=== PATIENT | male | born 1930 | race Asian ===

== ENCOUNTER 2018-03-09 01:34 | Inpatient (IN) | payer MEDICARE, OTHER ==
[2018-03-09] VITALS (9 sets, daily range): BP systolic 96–116; BP diastolic 54–76
[~2018-03-09] VITALS: Ht 172.7 cm; Wt 68.7 kg
[2018-03-09] MEDS ORDERED: NS 1000ml 1,600 ML IVLG ONE (01:45)
[2018-03-09] MEDS ORDERED: Acetaminophen 650 MG SUPP RECTAL ONE (01:45)
[2018-03-09 02:01] LABS: APPEARANCE,URINE CLOUDY; BILIRUBIN, URINE NEGATIVE (NEGATIVE); COLOR,URINE PALE YELLOW; GLUCOSE, URINE (UA) 4+ (NEGATIVE); KETONES,URINE NEGATIVE (NEGATIVE); LEUKOCYTE ESTERASE ,URINE 3+ (NEGATIVE); NITRITE,URINE NEGATIVE (NEGATIVE); PH,URINE 5 (4.5-8.0); PROTEIN,URINE 3+ (NEGATIVE); UROBILINOGEN,URINE NORMAL MG/DL (0.0-1.0)
[2018-03-09 02:02] LABS: HEMATOCRIT 37.7 % (42.0-52.0); HEMOGLOBIN 11.6 G/DL (14.2-18.0); MEAN CORPUSCULAR VOLUME 90 FL (80-99); PLATELET COUNT 358 K/UL (150-450); RED BLOOD COUNT 4.18 M/UL (4.70-6.10); RED CELL DISTRIBUTION WIDTH 16.4 % (11.6-14.8)
[2018-03-09] MEDS ORDERED: DOCUSATE S50 MG/5 ML GT (02:09)
[2018-03-09] MEDS ORDERED: HUMALOG100 UNIT/4 SUBQ (02:09)
[2018-03-09] MEDS ORDERED: ASPIRIN81 MG GT (02:09)
[2018-03-09] MEDS ORDERED: ARGINAID POWDE1 EACH GT (02:09)
[2018-03-09] MEDS ORDERED: ACETAMINOPHEN325 M1 GT ×2 (02:09)
[2018-03-09] MEDS ORDERED: HEPARIN SO5000 UNIT2 SUBQ (02:09)
[2018-03-09] MEDS ORDERED: IPRATROPIU0.2 MG/1 M HHN (02:09)
[2018-03-09] MEDS ORDERED: JANUVIA100 MG GT (02:09)
[2018-03-09] MEDS ORDERED: TRAMADOL HCL50 MG GT (02:09)
[2018-03-09] MEDS ORDERED: ASCORBIC ACID500 M4 GT (02:09)
[2018-03-09] MEDS ORDERED: FOLIC ACID1 MG GT (02:09)
[2018-03-09] MEDS ORDERED: METOCLOPRA10 MG/10 M GT (02:09)
[2018-03-09] MEDS ORDERED: Cefepime HCl 2 GM in D5W 55 ML IVPB ONE (02:15)
[2018-03-09] MEDS ORDERED: Albuterol ud Inhalation HHN ONE (02:15)
--- NOTE | 2018-03-09 02:26 | Emergency Room Report ---
History of Present Illness General Chief Complaint: Altered Level of Consciousness Source: Medical Record, EMS Present Illness HPI This is an unfortunate 87-year-old [place] male, care home. He is a DO NOT RESUSCITATE. He presents with chief complaint altered mental status with fever. Onset supposedly tonight. He also has respiratory distress and decreased mentation. No nausea no vomiting. No diarrhea. He has a history of MRSA in the past. Also decubital ulcer and feeding tube. Allergies: Coded Allergies: No Known Allergies (Verified , 05/12/08) Patient History Past Medical History: see triage record, old chart reviewed, DM, COPD Past Surgical History: other Pertinent Family History: none Social History: Denies: smoking Immunizations: other Reviewed Nursing Documentation: PMH: Agreed; PSxH: Agreed Nursing Documentation-PMH Hx Cardiac Problems: Yes - ATHEROSCLEROTIC HEART DISEASE,CAD,PVD,HYPERLIPIDEMIA Hx Hypertension: Yes - ANEMIA,OSTEOMYELITIS Hx COPD: Yes Hx Diabetes: Yes Hx Gastrointestinal Problems: Yes - CKD Review of Systems Constitutional: Reports: fever, malaise, weakness Eye: Denies: eye pain, blurred vision ENT: Denies: ear pain, nose congestion, throat swelling Respiratory: Reports: cough Cardiovascular: Denies: chest pain, palpitations Gastrointestinal: Denies: abdominal pain, diarrhea, nausea, vomiting Musculoskeletal: Denies: back pain, joint pain Skin: Denies: rash Neurological: Denies: headache, numbness Endocrine: Denies: increased thirst, increased urine Hematologic/Lymphatic: Denies: easy bruising All Other Systems: negative except mentioned in HPI Physical Exam Vital Signs Date Time Temp Pulse Resp B/P (MAP) Pulse Ox O2 Delivery O2 Flow Rate FiO2 03/09/18 01:26 102.4 128 41 90/60 98 Room Air 102.4 03/09/18 02:15 2.0 28 vitals with fever and hypotension Sp02 EP Interpretation: abnormal General Appearance: moderate distress, lethargic, Stupor Head: normocephalic, atraumatic Eyes: bilateral eye PERRL, bilateral eye EOMI ENT: dry mucus membranes - very dry Neck: full range of motion, supple, no meningismus Respiratory: chest non-tender, respiratory distress, decreased breath sounds, accessory muscle use, rhonchi, wheezing Cardiovascular #1: regular rate, rhythm, no murmur, tachycardia Gastrointestinal: normal bowel sounds, non tender, no mass, no organomegaly, no bruit, non-distended Musculoskeletal: back normal, other - contracted. Ulcer to heels and sacrum Neurologic: grossly normal Skin: warm/dry Procedures Critical Care Time Critical Care Time Critical care is mandated in this patient who presented with severe sepsis. Patient require my urgent intervention to attenuate the risks of metabolic collapse which may lead to cardiovascular collapse and . Critical care time is 35 minutes excluding any reportable procedure. Critical care time included evaluation, multiple reevaluation, looking at old charts, interpreting laboratory and diagnostic data, discussing case with patient and family and consultants, and charting. Medical Decision Making Diagnostic Impression: Primary Impression: Severe sepsis Additional Impressions: Healthcare associated bacterial pneumonia UTI (urinary tract infection) Qualified Codes: N30.00 - Acute cystitis without hematuria Toxic metabolic encephalopathy Anemia Qualified Codes: D64.9 - Anemia, unspecified Proteinuria Qualified Codes: R80.9 - Proteinuria, unspecified Dehydration Hyperglycemia due to type 2 diabetes mellitus Qualified Codes: E11.65 - Type 2 diabetes mellitus with hyperglycemia; Z79.4 - alf (current) use of insulin ER Course Patient presents with severe sepsis secondary to both pneumonia and UTI. After IV fluid, he is more alert. Heart rate down. White spectrum antibiotics given. Will admit for further workup. I will admit to Dr. Puckett since he is admitting for Dr. Duff. Lab Results Impression labs with high sugar and WBC EKG Diagnostic Results Rate: tachycardiac Rhythm: NSR ST Segments: no acute changes Rhythm Strip Diag. Results Rhythm Strip Time: 02:25 EP Interpretation: yes Rate: 106 Rhythm: NSR, no PVC's, no ectopy Chest X-Ray Diagnostic Results Chest X-Ray Diagnostic Results : Chest X-Ray Ordered: Yes # of Views/Limited/Complete: 1 View Indication: Shortness of Breath EP Interpretation: Yes Interpretation: no effusion, no pneumothorax, other - right lower lobe and left lower lobe infiltrates Impression: Other - lower lobe infiltrates Electronically Signed by: Thor Kevin MD Last Vital Signs Date Time Temp Pulse Resp B/P (MAP) Pulse Ox O2 Delivery O2 Flow Rate FiO2 03/09/18 02:15 107 33 97 Nasal Cannula 2.0 28 03/09/18 01:45 102.4 03/09/18 01:26 90/60 Status: improved Disposition: ADMITTED INPATIENT Condition: Serious Referrals: NON PHYSICIAN (PCP) THOR KEVIN M.D. Mar 09, 2018 02:26
[2018-03-09 02:27] LABS: ALANINE AMINOTRANSFERASE 20 U/L (12-78); ALBUMIN 2.5 G/DL (3.4-5.0); ALBUMIN/GLOBULIN RATIO 0.4 (1.0-2.7); ALKALINE PHOSPHATASE 82 U/L (46-116); ANION GAP 13 mmol/L (5-15); ASPARTATE AMINO TRANSFERASE 12 U/L (15-37); BILIRUBIN,TOTAL 0.5 MG/DL (0.2-1.0); BLOOD UREA NITROGEN 70 mg/dL (7-18); CALCIUM 9.1 MG/DL (8.5-10.1); CARBON DIOXIDE 22 MMOL/L (21-32); CHLORIDE 107 MMOL/L (98-107); CKMB < 0.5 NG/ML (0.0-3.6); CREATINE KINASE 168 U/L (26-308); CREATININE 1.9 MG/DL (0.55-1.30); POTASSIUM 3.8 MMOL/L (3.5-5.1); SODIUM 142 MMOL/L (136-145)
[2018-03-09] MEDS ORDERED: Insulin Human Regular 100units/ml 3ml IV ONE ×2 (02:30→05:15)
--- NOTE | 2018-03-09 03:49 | Diagnostic Imaging Report ---
EXAM: XR Chest, 1 View CLINICAL HISTORY: SOB TECHNIQUE: Frontal view of the chest. COMPARISON: No relevant prior studies available. FINDINGS: Lungs: Tortuous calcified thoracic aorta. Bibasilar opacity which may reflect subsegmental atelectasis. Developing infiltrate difficult to exclude. Low lung volumes accentuate pulmonary lung markings Pleural space: No pneumothorax. Heart: Unremarkable. No cardiomegaly. Mediastinum: Unremarkable. Bones/joints: Unremarkable. Soft tissues: Skin fold in the lateral aspect of the left mid to lower lung. Tubes, lines and devices: Overlying chest leads obscure portion of the chest. IMPRESSION: Bibasilar atelectasis versus developing infiltrate..
[2018-03-09] MEDS ORDERED: traMADol 50mg tab GT PRN (06:45)
[2018-03-09] MEDS ORDERED: Docusate 100mg/10ml Liq GT PRN (06:45)
[2018-03-09] MEDS ORDERED: Ipratropium 0.02% Inh Soln 2.5ml UD HHN PRN (06:45)
[2018-03-09] MEDS ORDERED: Milk of Magnesia 30ml Ud ORAL PRN (06:45)
[2018-03-09] MEDS ORDERED: NS w/KCl 20mEq 1,000 ML IV SCH (08:00)
[2018-03-09] MEDS ORDERED: Vancomycin 1gm/D5W 275ml IVPB ONE ×2 (08:30)
[2018-03-09] MEDS: Aspirin Baby 81mg GT SCH (10:21)
[2018-03-09] MEDS: sitaGLIPtin 25mg tab GT SCH (10:21)
[2018-03-09] MEDS: Ascorbic Acid 500mg tab GT SCH (10:21)
[2018-03-09] MEDS: Docusate 100mg/10ml Liq GT SCH ×2 (10:21→21:04)
[2018-03-09] MEDS: Heparin 5000 units/ml inj SUBQ SCH ×2 (10:26→21:05)
--- NOTE | 2018-03-09 11:34 | Consultation ---
History of Present Illness General Date patient seen: Mar 09, 2018 Chief Complaint: Altered Level of Consciousness Present Illness HPI 87-year-old German male, with Hx of CAD, CVA, Dementia, Bed boudn, Gtube, sacral decubit, prison resident with DO NOT RESUSCITATE order in the [facility] presented to ER with chief complaint altered mental status, respiratory distress with fever. Pt was diagnosed to have sepsis and admitted to med/surg for further w/u. Pt is sitting up in the bed with open eyes, doesn't communicate. Allergies: Coded Allergies: No Known Allergies (Verified , 05/12/08) Medication History Scheduled Arginine/Ascorbate Sod/[place] AC (Arginaid Powder), 1 EACH GT BID, (Reported) Ascorbic Acid* (Ascorbic Acid*), 500 MG GT DAILY, (Reported) Aspirin* (Aspirin*), 81 MG GT DAILY, (Reported) Folic Acid* (Folic Acid*), 1 MG GT DAILY, (Reported) Heparin Sod (Porcine) (Heparin Sodium*), 5,000 UNITS SUBQ EVERY 12 HOURS, ( Reported) Metoclopramide Hcl* (Metoclopramide Hcl*), 4 MG GT EVERY 6 HOURS, (Reported) Sitagliptin (Januvia), 100 MG GT DAILY, (Reported) Scheduled PRN Acetaminophen* (Acetaminophen 325MG Tablet*), 325 MG GT Q4H PRN for For Pain, ( Reported) Acetaminophen* (Acetaminophen 325MG Tablet*), 650 MG GT Q6H PRN for FEVER, ( Reported) Docusate Sodium (Docusate Sodium), 100 MG GT EVERY 12 HOURS PRN for Constipation , (Reported) Ipratropium [place] 0.5MG/2.5ML (Ipratropium [place] 0.5MG/2.5ML), 0.5 MG HHN EVERY 4 HOURS PRN for Shortness of Breath, (Reported) Tramadol Hcl* (Ultram*), 50 MG GT Q6H PRN for For Pain, (Reported) Miscellaneous Medications Insulin Lispro (Humalog), 0 SUBQ, (Reported) Patient History Healthcare decision maker Resuscitation status Do Not Resuscitate Advanced Directive on File Past Medical/Surgical History Past Medical/Surgical History: (1) History of CVA (cerebrovascular accident) (2) Feeding by G-tube (3) Limited mobility in bed (4) Diabetes mellitus Review of Systems All Other Systems: negative except mentioned in HPI Physical Exam General Appearance: cachetic Lines, tubes and drains: peripheral HEENT: normocephalic, atraumatic Neck: non-tender, normal alignment Respiratory/Chest: chest wall non-tender, lungs clear Breasts: no masses Cardiovascular/Chest: normal rate Abdomen: normal bowel sounds, soft, hyperactive bowel sounds Last 24 Hour Vital Signs Date Time Temp Pulse Resp B/P (MAP) Pulse Ox O2 Delivery O2 Flow Rate FiO2 03/09/18 08:00 97.8 77 21 96/58 97 Room Air 97.8 03/09/18 07:48 91 18 Nasal Cannula 2.0 28 03/09/18 07:48 Nasal Cannula 2.0 28 03/09/18 07:48 98 Nasal Cannula 2.0 28 03/09/18 05:15 98.8 112 20 108/67 99 Nasal Cannula 2.0 98.8 03/09/18 05:00 98.8 112 20 108/67 99 Nasal Cannula 2.0 98.8 03/09/18 04:35 98.9 110 22 115/68 98 Nasal Cannula 2.0 98.9 03/09/18 02:30 113 21 116/54 96 Nasal Cannula 2.0 03/09/18 02:30 106 30 100 Nasal Cannula 2.0 28 03/09/18 02:15 98.9 03/09/18 02:15 107 33 97 Nasal Cannula 2.0 28 03/09/18 02:15 107 33 Nasal Cannula 2.0 28 03/09/18 01:45 102.4 03/09/18 01:35 102.4 125 39 101/76 94 Nasal Cannula 2.0 102.4 03/09/18 01:26 102.4 128 41 90/60 98 Room Air 102.4 Intake and Output 03/08/18 03/09/18 19:00 07:00 Intake Total 2800 ml Output Total 400 ml Balance 2400 ml Intake IV Total 2800 ml Output Urine Total 400 ml # Bowel Movements 1 Laboratory Tests Test 03/09/18 01:42 03/09/18 02:40 White Blood Count 20.0 K/UL (4.8-10.8) H Red Blood Count 4.18 M/UL (4.70-6.10) L Hemoglobin 11.6 G/DL (14.2-18.0) L Hematocrit 37.7 % (42.0-52.0) L Mean Corpuscular Volume 90 FL (80-99) Mean Corpuscular Hemoglobin 27.8 PG (27.0-31.0) Mean Corpuscular Hemoglobin Concent 30.8 G/DL (32.0-36.0) L Red Cell Distribution Width 16.4 % (11.6-14.8) H Platelet Count 358 K/UL (150-450) Mean Platelet Volume 7.4 FL (6.5-10.1) Neutrophils (%) (Auto) % (45.0-75.0) Lymphocytes (%) (Auto) % (20.0-45.0) Monocytes (%) (Auto) % (1.0-10.0) Eosinophils (%) (Auto) % (0.0-3.0) Basophils (%) (Auto) % (0.0-2.0) Differential Total Cells Counted 100 Neutrophils % (Manual) 83 % (45-75) H Lymphocytes % (Manual) 7 % (20-45) L Monocytes % (Manual) 6 % (1-10) Eosinophils % (Manual) 0 % (0-3) Basophils % (Manual) 0 % (0-2) Band Neutrophils 4 % (0-8) Platelet Estimate Adequate Platelet Morphology Normal Anisocytosis 1+ Urine Color Pale yellow Urine Appearance Cloudy Urine pH 5 (4.5-8.0) Urine Specific [place] 1.010 (1.005-1.035) Urine Protein 3+ (NEGATIVE) H Urine Glucose (UA) 4+ (NEGATIVE) H Urine Ketones Negative (NEGATIVE) Urine Occult Blood 5+ (NEGATIVE) H Urine Nitrite Negative (NEGATIVE) Urine Bilirubin Negative (NEGATIVE) Urine Urobilinogen Normal MG/DL (0.0-1.0) Urine Leukocyte Esterase 3+ (NEGATIVE) H Urine RBC 5-10 /HPF (0 - 0) H Urine WBC 20-30 /HPF (0 - 0) H Urine Squamous Epithelial Cells Few /LPF (NONE/OCC) Urine Amorphous Sediment Few /LPF (NONE) H Urine Bacteria Many /HPF (NONE) H Urine Yeast Moderate /HPF (NONE) H Sodium Level 142 MMOL/L (136-145) Potassium Level 3.8 MMOL/L (3.5-5.1) Chloride Level 107 MMOL/L (98-107) Carbon Dioxide Level 22 MMOL/L (21-32) Anion Gap 13 mmol/L (5-15) Blood Urea Nitrogen 70 mg/dL (7-18) H Creatinine 1.9 MG/DL (0.55-1.30) H Estimat Glomerular Filtration Rate mL/min (>60) Glucose Level 579 MG/DL (74-106) *H Lactic Acid Level 4.60 mmol/L (0.4-2.0) H 4.10 mmol/L (0.66-2.22) H Calcium Level 9.1 MG/DL (8.5-10.1) Total Bilirubin 0.5 MG/DL (0.2-1.0) Aspartate Amino Transf (AST/SGOT) 12 U/L (15-37) L Alanine Aminotransferase (ALT/SGPT) 20 U/L (12-78) Alkaline Phosphatase 82 U/L (46-116) Total Creatine Kinase 168 U/L (26-308) Creatine Kinase MB < 0.5 NG/ML (0.0-3.6) Creatine Kinase MB Relative Index 0.2 Troponin I 0.018 ng/mL (0.000-0.056) Total Protein 8.9 G/DL (6.4-8.2) H Albumin 2.5 G/DL (3.4-5.0) L Globulin 6.4 g/dL Albumin/Globulin Ratio 0.4 (1.0-2.7) L Height (Feet): 5 Height (Inches): 8.00 Weight (Pounds): 120 Medications Current Medications Medications (Trade) Dose Ordered Sig/Evelio Route PRN Reason Start Time Stop Time Status Last Admin Dose Admin Acetaminophen (Tylenol) 325 mg Q4H PRN ORAL Mild Pain (Pain Scale 1-3) 03/09/18 07:30 04/08/18 07:29 Acetaminophen (Tylenol) 650 mg Q6H PRN ORAL T>100.5 03/09/18 06:45 04/08/18 06:44 Ascorbic Acid (Vitamin C) 500 mg DAILY GT 03/09/18 09:00 04/08/18 08:59 03/09/18 10:21 Aspirin (ASA) 81 mg DAILY GT 03/09/18 09:00 04/08/18 08:59 03/09/18 10:21 Bisacodyl (Dulcolax) 10 mg HSPRN PRN RECTAL Constipation 03/09/18 06:45 04/08/18 06:44 Dextrose (Dextrose 50%) 25 ml STAT PRN IV Hypoglycemia 03/09/18 08:00 04/08/18 07:59 Dextrose (Dextrose 50%) 50 ml STAT PRN IV Hypoglycemia 03/09/18 08:00 04/08/18 07:59 Docusate Sodium (Colace) 100 mg Q12H PRN GT Constipation 03/09/18 06:45 04/08/18 06:44 Docusate Sodium (Colace) 100 mg Q12HR GT 03/09/18 09:00 04/08/18 08:59 03/09/18 10:21 Folic Acid (Folate) 1 mg DAILY GT 03/09/18 09:00 04/08/18 08:59 03/09/18 10:21 Heparin Sodium (Porcine) (Heparin 5000 units/ml) 5,000 units EVERY 12 HOURS SUBQ 03/09/18 09:00 04/08/18 08:59 03/09/18 10:26 Insulin Aspart (NovoLOG) BEFORE MEALS AND HS SUBQ 03/09/18 11:30 04/08/18 11:29 Ipratropium [place] (Atrovent) 500 mcg Q4H PRN HHN Shortness of Breath 03/09/18 06:45 03/14/18 06:44 Magnesium Hydroxide (Mom) 30 ml HSPRN PRN ORAL Constipation 03/09/18 06:45 04/08/18 06:44 Metoclopramide HCl (Reglan) 4 mg EVERY 6 HOURS GT 03/09/18 12:00 04/08/18 11:59 Ondansetron HCl (Zofran) 4 mg Q6H PRN IVP Nausea & Vomiting 03/09/18 07:30 04/08/18 07:29 Piperacillin Sod/ Tazobactam Sod 3.375 gm/Dextrose 110 ml @ 27.5 mls/hr EVERY 8 HOURS IVPB 03/09/18 14:00 03/14/18 13:59 Polyethylene Glycol (Miralax) 17 gm HSPRN PRN ORAL Constipation 03/09/18 21:00 04/08/18 20:59 Sitagliptin Phosphate (Januvia) 25 mg DAILY GT 03/09/18 09:00 04/08/18 08:59 03/09/18 10:21 Sodium Chloride 1,000 ml @ 75 mls/hr [id number] IV 03/09/18 08:00 04/08/18 07:59 03/09/18 10:21 Tramadol HCl (Ultram) 50 mg Q6H PRN GT Moderate Pain (Pain Scale 4-6) 03/09/18 06:45 03/16/18 06:44 Vancomycin HCl (Vanco rx to dose) 1 ea DAILY PRN MISC Per rx protocol 03/09/18 06:45 04/08/18 06:44 Assessment/Plan Problem List: (1) Healthcare associated bacterial pneumonia ICD Codes: J15.9 - Unspecified bacterial pneumonia SNOMED: 383528331 (2) Acute encephalopathy ICD Codes: G93.40 - Encephalopathy, unspecified SNOMED: 24216362, 894818198 (3) Severe sepsis ICD Codes: A41.9 - Sepsis, unspecified organism; R65.20 - Severe sepsis without septic shock SNOMED: 75085586 (4) Feeding by G-tube ICD Codes: Z93.1 - Gastrostomy status SNOMED: 241548965, 757402520 (5) Hyperglycemia due to type 2 diabetes mellitus ICD Codes: E11.65 - Type 2 diabetes mellitus with hyperglycemia SNOMED: 879898015171711, 50746591 Qualifiers: Qualified Codes: E11.65 - Type 2 diabetes mellitus with hyperglycemia; Z79.4 - MCC (current) use of insulin (6) Protein-calorie malnutrition, severe ICD Codes: E43 - Unspecified severe protein-calorie malnutrition SNOMED: 306801393 (7) Limited mobility in bed SNOMED: 964124037 (8) History of CVA (cerebrovascular accident) ICD Codes: Z86.73 - Personal history of transient ischemic attack (TIA), and cerebral infarction without residual deficits SNOMED: 356740977 Assessment/Plan nixon culture iv abx iv fluids check electroltyes dvt prophylaxis wound care sliding scale diabetic Gtube feeding symptomatic treatment DNR is very appropriate. Neil Goldstein MD Mar 09, 2018 11:34
--- NOTE | 2018-03-09 13:06 | Consultation ---
History of Present Illness General Date patient seen: Mar 09, 2018 Chief Complaint: Altered Level of Consciousness Present Illness HPI 87 y/o M with hx of CAD, CVA, COPD, anemia, CKD, Dementia, Bed boudn, Gtube, sacral decubit, hx of MRSA (?infection vs colonization), [facility] resident is brought to ED on 03/09 with AMS, respiratory distress, fever No nausea, vomiting, diarrhea Allergies: Coded Allergies: No Known Allergies (Verified , 05/12/08) Medication History Scheduled Arginine/Ascorbate Sod/[place] AC (Arginaid Powder), 1 EACH GT BID, (Reported) Ascorbic Acid* (Ascorbic Acid*), 500 MG GT DAILY, (Reported) Aspirin* (Aspirin*), 81 MG GT DAILY, (Reported) Folic Acid* (Folic Acid*), 1 MG GT DAILY, (Reported) Heparin Sod (Porcine) (Heparin Sodium*), 5,000 UNITS SUBQ EVERY 12 HOURS, ( Reported) Metoclopramide Hcl* (Metoclopramide Hcl*), 4 MG GT EVERY 6 HOURS, (Reported) Sitagliptin (Januvia), 100 MG GT DAILY, (Reported) Scheduled PRN Acetaminophen* (Acetaminophen 325MG Tablet*), 325 MG GT Q4H PRN for For Pain, ( Reported) Acetaminophen* (Acetaminophen 325MG Tablet*), 650 MG GT Q6H PRN for FEVER, ( Reported) Docusate Sodium (Docusate Sodium), 100 MG GT EVERY 12 HOURS PRN for Constipation , (Reported) Ipratropium [place] 0.5MG/2.5ML (Ipratropium [place] 0.5MG/2.5ML), 0.5 MG HHN EVERY 4 HOURS PRN for Shortness of Breath, (Reported) Tramadol Hcl* (Ultram*), 50 MG GT Q6H PRN for For Pain, (Reported) Miscellaneous Medications Insulin Lispro (Humalog), 0 SUBQ, (Reported) Patient History Healthcare decision maker Resuscitation status Do Not Resuscitate Advanced Directive on File Patient History Narrative Pmhx: as above Shx: [facility] resident. Denies: smoking Fhx: non contributory Review of Systems ROS Narrative unable to obtain Physical Exam Physical Exam Narrative General Appearance: moderate distress, lethargic, Stupor Head: normocephalic, atraumatic Eyes: bilateral eye PERRL, bilateral eye EOMI ENT: dry mucus membranes - very dry Neck: full range of motion, supple, no meningismus Respiratory: chest non-tender, respiratory distress, decreased breath sounds, accessory muscle use, rhonchi, wheezing Cardiovascular #1: regular rate, rhythm, no murmur, tachycardia Gastrointestinal: normal bowel sounds, non tender, no mass, no organomegaly, no bruit, non-distended Musculoskeletal: back normal, other - contracted. Ulcer to heels and sacrum Neurologic: grossly normal Skin: warm/dry Last 24 Hour Vital Signs Date Time Temp Pulse Resp B/P (MAP) Pulse Ox O2 Delivery O2 Flow Rate FiO2 03/09/18 12:00 98.0 117 21 108/59 96 Nasal Cannula 2.0 98.0 03/09/18 08:00 97.8 77 21 96/58 97 Room Air 97.8 03/09/18 07:48 91 18 Nasal Cannula 2.0 28 03/09/18 07:48 Nasal Cannula 2.0 28 03/09/18 07:48 98 Nasal Cannula 2.0 28 03/09/18 05:15 98.8 112 20 108/67 99 Nasal Cannula 2.0 98.8 03/09/18 05:00 98.8 112 20 108/67 99 Nasal Cannula 2.0 98.8 03/09/18 04:35 98.9 110 22 115/68 98 Nasal Cannula 2.0 98.9 03/09/18 02:30 113 21 116/54 96 Nasal Cannula 2.0 03/09/18 02:30 106 30 100 Nasal Cannula 2.0 28 03/09/18 02:15 98.9 03/09/18 02:15 107 33 97 Nasal Cannula 2.0 28 03/09/18 02:15 107 33 Nasal Cannula 2.0 28 03/09/18 01:45 102.4 03/09/18 01:35 102.4 125 39 101/76 94 Nasal Cannula 2.0 102.4 03/09/18 01:26 102.4 128 41 90/60 98 Room Air 102.4 Intake and Output 03/08/18 03/09/18 19:00 07:00 Intake Total 2800 ml Output Total 400 ml Balance 2400 ml Intake IV Total 2800 ml Output Urine Total 400 ml # Bowel Movements 1 Laboratory Tests Test 03/09/18 01:42 03/09/18 02:40 White Blood Count 20.0 K/UL (4.8-10.8) H Red Blood Count 4.18 M/UL (4.70-6.10) L Hemoglobin 11.6 G/DL (14.2-18.0) L Hematocrit 37.7 % (42.0-52.0) L Mean Corpuscular Volume 90 FL (80-99) Mean Corpuscular Hemoglobin 27.8 PG (27.0-31.0) Mean Corpuscular Hemoglobin Concent 30.8 G/DL (32.0-36.0) L Red Cell Distribution Width 16.4 % (11.6-14.8) H Platelet Count 358 K/UL (150-450) Mean Platelet Volume 7.4 FL (6.5-10.1) Neutrophils (%) (Auto) % (45.0-75.0) Lymphocytes (%) (Auto) % (20.0-45.0) Monocytes (%) (Auto) % (1.0-10.0) Eosinophils (%) (Auto) % (0.0-3.0) Basophils (%) (Auto) % (0.0-2.0) Differential Total Cells Counted 100 Neutrophils % (Manual) 83 % (45-75) H Lymphocytes % (Manual) 7 % (20-45) L Monocytes % (Manual) 6 % (1-10) Eosinophils % (Manual) 0 % (0-3) Basophils % (Manual) 0 % (0-2) Band Neutrophils 4 % (0-8) Platelet Estimate Adequate Platelet Morphology Normal Anisocytosis 1+ Urine Color Pale yellow Urine Appearance Cloudy Urine pH 5 (4.5-8.0) Urine Specific [place] 1.010 (1.005-1.035) Urine Protein 3+ (NEGATIVE) H Urine Glucose (UA) 4+ (NEGATIVE) H Urine Ketones Negative (NEGATIVE) Urine Occult Blood 5+ (NEGATIVE) H Urine Nitrite Negative (NEGATIVE) Urine Bilirubin Negative (NEGATIVE) Urine Urobilinogen Normal MG/DL (0.0-1.0) Urine Leukocyte Esterase 3+ (NEGATIVE) H Urine RBC 5-10 /HPF (0 - 0) H Urine WBC 20-30 /HPF (0 - 0) H Urine Squamous Epithelial Cells Few /LPF (NONE/OCC) Urine Amorphous Sediment Few /LPF (NONE) H Urine Bacteria Many /HPF (NONE) H Urine Yeast Moderate /HPF (NONE) H Sodium Level 142 MMOL/L (136-145) Potassium Level 3.8 MMOL/L (3.5-5.1) Chloride Level 107 MMOL/L (98-107) Carbon Dioxide Level 22 MMOL/L (21-32) Anion Gap 13 mmol/L (5-15) Blood Urea Nitrogen 70 mg/dL (7-18) H Creatinine 1.9 MG/DL (0.55-1.30) H Estimat Glomerular Filtration Rate mL/min (>60) Glucose Level 579 MG/DL (74-106) *H Lactic Acid Level 4.60 mmol/L (0.4-2.0) H 4.10 mmol/L (0.66-2.22) H Calcium Level 9.1 MG/DL (8.5-10.1) Total Bilirubin 0.5 MG/DL (0.2-1.0) Aspartate Amino Transf (AST/SGOT) 12 U/L (15-37) L Alanine Aminotransferase (ALT/SGPT) 20 U/L (12-78) Alkaline Phosphatase 82 U/L (46-116) Total Creatine Kinase 168 U/L (26-308) Creatine Kinase MB < 0.5 NG/ML (0.0-3.6) Creatine Kinase MB Relative Index 0.2 Troponin I 0.018 ng/mL (0.000-0.056) Total Protein 8.9 G/DL (6.4-8.2) H Albumin 2.5 G/DL (3.4-5.0) L Globulin 6.4 g/dL Albumin/Globulin Ratio 0.4 (1.0-2.7) L Height (Feet): 5 Height (Inches): 8.00 Weight (Pounds): 120 Medications Current Medications Medications (Trade) Dose Ordered Sig/Evelio Route PRN Reason Start Time Stop Time Status Last Admin Dose Admin Acetaminophen (Tylenol) 325 mg Q4H PRN ORAL Mild Pain (Pain Scale 1-3) 03/09/18 07:30 04/08/18 07:29 Acetaminophen (Tylenol) 650 mg Q6H PRN ORAL T>100.5 03/09/18 06:45 04/08/18 06:44 Ascorbic Acid (Vitamin C) 500 mg DAILY GT 03/09/18 09:00 04/08/18 08:59 03/09/18 10:21 Aspirin (ASA) 81 mg DAILY GT 03/09/18 09:00 04/08/18 08:59 03/09/18 10:21 Bisacodyl (Dulcolax) 10 mg HSPRN PRN RECTAL Constipation 03/09/18 06:45 04/08/18 06:44 Dextrose (Dextrose 50%) 25 ml STAT PRN IV Hypoglycemia 03/09/18 08:00 04/08/18 07:59 Dextrose (Dextrose 50%) 50 ml STAT PRN IV Hypoglycemia 03/09/18 08:00 04/08/18 07:59 Docusate Sodium (Colace) 100 mg Q12H PRN GT Constipation 03/09/18 06:45 04/08/18 06:44 Docusate Sodium (Colace) 100 mg Q12HR GT 03/09/18 09:00 04/08/18 08:59 03/09/18 10:21 Folic Acid (Folate) 1 mg DAILY GT 03/09/18 09:00 04/08/18 08:59 03/09/18 10:21 Heparin Sodium (Porcine) (Heparin 5000 units/ml) 5,000 units EVERY 12 HOURS SUBQ 03/09/18 09:00 04/08/18 08:59 03/09/18 10:26 Insulin Aspart (NovoLOG) BEFORE MEALS AND HS SUBQ 03/09/18 11:30 04/08/18 11:29 Ipratropium [place] (Atrovent) 500 mcg Q4H PRN HHN Shortness of Breath 03/09/18 06:45 03/14/18 06:44 Magnesium Hydroxide (Mom) 30 ml HSPRN PRN ORAL Constipation 03/09/18 06:45 04/08/18 06:44 Metoclopramide HCl (Reglan) 4 mg EVERY 6 HOURS GT 03/09/18 12:00 04/08/18 11:59 Ondansetron HCl (Zofran) 4 mg Q6H PRN IVP Nausea & Vomiting 03/09/18 07:30 04/08/18 07:29 Piperacillin Sod/ Tazobactam Sod 3.375 gm/Dextrose 110 ml @ 27.5 mls/hr EVERY 8 HOURS IVPB 03/09/18 14:00 03/14/18 13:59 Polyethylene Glycol (Miralax) 17 gm HSPRN PRN ORAL Constipation 03/09/18 21:00 04/08/18 20:59 Sitagliptin Phosphate (Januvia) 25 mg DAILY GT 03/09/18 09:00 04/08/18 08:59 03/09/18 10:21 Sodium Chloride 1,000 ml @ 125 mls/hr Q8H IV 03/10/18 08:00 04/08/18 07:59 UNV Tramadol HCl (Ultram) 50 mg Q6H PRN GT Moderate Pain (Pain Scale 4-6) 03/09/18 06:45 03/16/18 06:44 Vancomycin HCl (Vanco rx to dose) 1 ea DAILY PRN MISC Per rx protocol 03/09/18 06:45 04/08/18 06:44 Assessment/Plan Assessment/Plan Abx: IV Vanco 03/09- Zosyn 03/09- Cefepime x1 03/09 Levo x1 03/09 Assessment: SEpsis - likely 2ry to PNA, possible UTI- r/o Cdiff, r/o bacteremia -CXR: Bibasilar atelectasis versus developing infiltrate. -u/a wbc 20-30, nit neg, leuk +3; ucx p -Bcx p Fever/Leukocytosis Sacral decubitus ulcer- no signs of infection B/l foot pressure ulcer- no signs of inefction DANA CAD CVA COPD anemia CKD Dementia Bed bound Gtube, hx of MRSA (?infection vs colonization) [facility] resident DNR/DNI NKDA Plan: -Continue empiric IV Vanco and Zosyn pending cutltuers -sp cx, influenza sc -Cdiff if diarrhea -f/u cx -Monitor CBC/BMP, temperatures -wound care per hospital protocol -aspiration precautions -PEG care Thank you for this consultation. Will continue to follow along with you. Discussed with Baylee Terrazas M.D. Mar 09, 2018 13:06
[2018-03-09] MEDS: NS w/KCl 20mEq 1,000 ML IV SCH ×2 (13:48→21:04)
[2018-03-09] MEDS: NovoLOG Insulin Flexpen SUBQ SCH ×3 (13:49→21:06)
[2018-03-09] MEDS: Metoclopramide 10mg/10ml Liq GT SCH ×2 (13:51→17:55)
[2018-03-09] MEDS: Piperacillin/Tazobactam 3.375 GM in D5W 110 ML IVPB SCH ×2 (13:52→21:05)
--- NOTE | 2018-03-09 14:38 | History & Physical ---
History and Physical History & Physicial Dictated for Int Med-Dr Puckett no. [id number]. Esteban Yu MD Mar 09, 2018 14:38
[2018-03-09] MEDS ORDERED: Miralax 17gm pkt ORAL PRN (21:00)
--- NOTE | 2018-03-09 21:31 | History and Physical Report ---
DATE OF ADMISSION: 03/09/2018 CHIEF COMPLAINT: This is an 87-year-old male, who presents with a chief complaint of fever, shortness of breath, and altered mental status. HISTORY OF PRESENT ILLNESS: The patient himself is unable to contribute much to the History and Physical. The patient is a resident of [facility]. According to staff at [facility], the patient began to experience fever and shortness of breath. The patient became increasingly altered. The patient is now more or less lethargic. The patient presented to [place] emergency room. The patient was admitted for fever and shortness of breath to rule out pneumonia. PAST MEDICAL HISTORY: Significant for, 1. Hypertension. 2. Type 2 diabetes. 3. Anemia of chronic renal disease. 4. Chronic renal failure. 5. Chronic obstructive pulmonary disease. 6. Coronary artery disease. 7. Dysphagia. 8. Hypercholesterolemia. 9. Peripheral vascular disease. PAST SURGICAL HISTORY: Significant for PEG placement. CURRENT MEDICATIONS: 1. Tylenol 650 mg per PEG q.4 hours p.r.n. 2. Vitamin C 500 mg per G-tube daily. 3. Aspirin 81 mg per G-tube daily. 4. Folic acid 1 mg per G-tube daily. 5. Heparin 5000 units subcutaneously twice daily. 6. Lispro sliding scale. 7. DuoNeb nebulized q.4 hours p.r.n. 8. Januvia 100 mg per G-tube daily. 9. Reglan 4 mg per G-tube q.6 hours. 10. Tramadol 50 mg per G-tube q.6 hours p.r.n. ALLERGIES: No known drug allergies. SOCIAL HISTORY: The patient is a resident of [facility]. The patient denies tobacco or alcohol use. REVIEW OF SYSTEMS: Unable to assess secondary to the patient's mental status. PHYSICAL EXAMINATION: VITAL SIGNS: Temperature 98.9, respirations 22, pulse tachycardic 110 to 112, blood pressure 108 to 115/67 to 68. GENERAL: The patient is a well-developed and well-nourished male, who is more or less lethargic. HEENT: Eyes, pupils equal and responsive to light and accommodation. Extraocular movements are intact. NECK: Supple without lymphadenopathy. CHEST: Few crackles heard in the bilateral bases. Otherwise, clear to auscultation without wheezes or rales. CARDIOVASCULAR: Tachycardic. Regular rhythm. S1 and S2 are normal without murmurs, rubs, or gallops. ABDOMEN: Soft, nontender, and nondistended. Positive bowel sounds. No evidence of hepatosplenomegaly. Currently, no rebound or guarding noted. EXTREMITIES: Negative for clubbing, cyanosis, or edema. NEUROLOGIC: Cranial nerves II through XII are grossly intact without focal deficits. LABORATORY STUDIES: WBC 20.0, hemoglobin 11.6, hematocrit 37.7, and platelets 358,000. Sodium 142, potassium 3.8, chloride 107, CO2 of 22, BUN 17, creatinine 1.9, and glucose 579. Lactic acid elevated at 4.60. Troponin 0.018. Chest x-ray revealed bibasilar atelectasis versus infiltrates. ASSESSMENT: This is an 87-year-old male. 1. Fever. 2. Shortness of breath. 3. Bilateral lower lobe infiltrates. 4. Altered mental status. 5. Hypertension. 6. Diabetes type 2. 7. Chronic renal failure. 8. Anemia of chronic renal disease. 9. Chronic obstructive pulmonary disease. 10. Coronary artery disease. 11. Dysphagia. 12. Hypercholesterolemia. 13. Peripheral vascular disease. TREATMENT: 1. Fever/bilateral lower lobe infiltrates. A Pulmonary consultation has been obtained with Dr. Neil Goldstein. The patient has been started empirically on intravenous Zosyn. A sputum culture is pending. We will follow recommendations of Pulmonary. 2. Altered mental status secondary to hypoxemia secondary to pneumonia as above. 3. Hypertension. The patient is currently normotensive off medication. 4. Diabetes type 2. A NovoLog sliding scale has been instituted. 5. Chronic renal failure. A Nephrology consultation has been obtained with Dr. Peñaloza. 6. Anemia of chronic renal disease. 7. Chronic obstructive pulmonary disease. 8. Coronary artery disease. 9. Dysphagia. The patient is status post PEG placement. 10. Hypercholesterolemia. 11. History of peripheral vascular disease. Esteban Yu M.D. DR: NITISH JOB#: [id number] CC:
[2018-03-10] VITALS: BP 105/61
[2018-03-10] MEDS: Metoclopramide 10mg/10ml Liq GT SCH ×4 (00:19→18:54)
[2018-03-10 04:00] VITALS: BP 113/66
[2018-03-10] MEDS: NS w/KCl 20mEq 1,000 ML IV SCH ×3 (05:28→21:32)
[2018-03-10] MEDS: Piperacillin/Tazobactam 3.375 GM in D5W 110 ML IVPB SCH ×3 (05:29→21:32)
[2018-03-10] MEDS: NovoLOG Insulin Flexpen SUBQ SCH ×4 (05:51→21:34)
[2018-03-10 08:00] VITALS: BP 115/67
[2018-03-10] MEDS: Docusate 100mg/10ml Liq GT SCH ×2 (08:33→21:32)
[2018-03-10] MEDS: Ascorbic Acid 500mg tab GT SCH (08:33)
[2018-03-10] MEDS: Aspirin Baby 81mg GT SCH (08:33)
[2018-03-10] MEDS: sitaGLIPtin 25mg tab GT SCH (08:33)
[2018-03-10] MEDS: Heparin 5000 units/ml inj SUBQ SCH ×2 (08:35→21:34)
[2018-03-10 08:47] LABS: HEMATOCRIT 28.4 % (42.0-52.0); HEMOGLOBIN 9.2 G/DL (14.2-18.0); MEAN CORPUSCULAR VOLUME 90 FL (80-99); PLATELET COUNT 318 K/UL (150-450); RED BLOOD COUNT 3.15 M/UL (4.70-6.10); RED CELL DISTRIBUTION WIDTH 15.6 % (11.6-14.8); WHITE BLOOD COUNT 16.9 K/UL (4.8-10.8)
[2018-03-10 09:02] LABS: ALANINE AMINOTRANSFERASE 16 U/L (12-78); ALBUMIN 1.9 G/DL (3.4-5.0); ALBUMIN/GLOBULIN RATIO 0.3 (1.0-2.7); ALKALINE PHOSPHATASE 64 U/L (46-116); ANION GAP 13 mmol/L (5-15); ASPARTATE AMINO TRANSFERASE 12 U/L (15-37); BILIRUBIN,TOTAL 0.3 MG/DL (0.2-1.0); BLOOD UREA NITROGEN 43 mg/dL (7-18); CALCIUM 8.6 MG/DL (8.5-10.1); CARBON DIOXIDE 19 MMOL/L (21-32); CHLORIDE 118 MMOL/L (98-107); CREATININE 1.4 MG/DL (0.55-1.30); POTASSIUM 3.8 MMOL/L (3.5-5.1); SODIUM 150 MMOL/L (136-145)
[2018-03-10] MEDS ORDERED: Vancomycin 750mg/NS 250ml IVPB SCH (10:00)
[2018-03-10] MEDS ORDERED: NS 275ml ONE (10:41)
--- NOTE | 2018-03-10 10:57 | Pulmonology Progress Note ---
Assessment/Plan Problems: (1) Healthcare associated bacterial pneumonia (2) Acute encephalopathy (3) Severe sepsis (4) Feeding by G-tube (5) Hyperglycemia due to type 2 diabetes mellitus (6) Protein-calorie malnutrition, severe (7) Limited mobility in bed (8) History of CVA (cerebrovascular accident) Assessment/Plan iv fluids iv abx check cutlures, urine has GNR tolerating feeding Gtube site care iv fluids DNR is appropriate dvt prophylaxis Subjective ROS Limited/Unobtainable: Yes Allergies: Coded Allergies: No Known Allergies (Verified , 05/12/08) Objective Last 24 Hour Vital Signs Date Time Temp Pulse Resp B/P (MAP) Pulse Ox O2 Delivery O2 Flow Rate FiO2 03/10/18 08:24 Nasal Cannula 2.0 28 03/10/18 08:24 105 22 Nasal Cannula 2.0 28 03/10/18 08:24 95 Nasal Cannula 2.0 28 03/10/18 08:00 98.2 104 20 115/67 96 Nasal Cannula 2.0 98.2 03/10/18 04:00 99.0 108 29 113/66 96 Nasal Cannula 2.0 99.0 03/10/18 00:00 99.9 116 29 105/61 96 Nasal Cannula 2.0 99.9 03/09/18 22:23 99.9 03/09/18 21:24 101.7 03/09/18 20:00 101.7 117 28 107/63 96 Nasal Cannula 2.0 101.7 03/09/18 19:09 98 22 Nasal Cannula 2.0 28 03/09/18 19:09 Nasal Cannula 2.0 28 03/09/18 19:09 99 Nasal Cannula 2.0 28 03/09/18 17:17 97.5 118 21 102/62 96 Nasal Cannula 2.0 97.5 03/09/18 16:00 97.5 118 21 102/62 96 Nasal Cannula 2.0 97.5 03/09/18 16:00 97.5 118 21 102/62 96 Nasal Cannula 2.0 97.5 03/09/18 12:00 98.0 117 21 108/59 96 Nasal Cannula 2.0 98.0 Intake and Output 03/09/18 03/10/18 19:00 07:00 Intake Total 1045.0 ml 1577.5 ml Output Total 800 ml 450 ml Balance 245.0 ml 1127.5 ml Intake Oral 0 ml Free Water 100 ml 150 ml IV Total 540.0 ml 887.5 ml Tube Feeding 405 ml 540 ml Output Urine Total 800 ml 450 ml # Bowel Movements 2 General Appearance: cachetic HEENT: normocephalic, atraumatic Respiratory/Chest: chest wall non-tender, crackles/rales Cardiovascular: normal peripheral pulses, normal rate Abdomen: normal bowel sounds, no organomegaly Genitourinary: normal external genitalia Extremities: no cyanosis Skin: ulcers Microbiology Date/Time Source Procedure Growth Status 03/09/18 01:40 Blood Blood Culture - Preliminary NO GROWTH AFTER 24 HOURS Resulted 03/09/18 01:25 Blood Blood Culture - Preliminary NO GROWTH AFTER 24 HOURS Resulted 03/09/18 22:30 Nasopharynx Influenza Types A,B Antigen (CLAUDINE) - Final Complete 03/09/18 01:42 Urine,Clean Catch Urine Culture - Preliminary Gram Negative Bacillus 1 Resulted 03/09/18 07:00 Foot Right Gram Stain - Final Resulted 03/09/18 07:00 Foot Right Wound Culture Pending Resulted 03/09/18 07:00 Sacral Ulcer Gram Stain - Final Resulted 03/09/18 07:00 Wound Culture - Preliminary Gram Negative Bacillus 1 Resulted Laboratory Tests 03/10/18 06:50: White Blood Count 16.9H, Red Blood Count 3.15L, Hemoglobin 9.2L, Hematocrit 28.4L, Mean Corpuscular Volume 90, Mean Corpuscular Hemoglobin 29.2, Mean Corpuscular Hemoglobin Concent 32.3, Red Cell Distribution Width 15.6H, Platelet Count 318, Mean Platelet Volume 8.0, Neutrophils (%) (Auto) , Lymphocytes (%) (Auto) , Monocytes (%) (Auto) , Eosinophils (%) (Auto) , Basophils (%) (Auto) , Differential Total Cells Counted 100, Neutrophils % ( Manual) 89H, Lymphocytes % (Manual) 6L, Monocytes % (Manual) 5, Eosinophils % ( Manual) 0, Basophils % (Manual) 0, Band Neutrophils 0, Platelet Estimate Adequate, Platelet Morphology Normal, Anisocytosis 1+, Erythrocyte Sedimentation Rate 125H, Prothrombin Time 10.4, Prothromb Time International Ratio 1.0, Activated Partial Thromboplast Time 37H, Sodium Level 150H, Potassium Level 3.8, Chloride Level 118H, Carbon Dioxide Level 19L, Anion Gap 13 , Blood Urea Nitrogen 43H, Creatinine 1.4H, Estimat Glomerular Filtration Rate , Glucose Level 284#H, Lactic Acid Level 2.80H, Calcium Level 8.6, Phosphorus Level 1.0L, Magnesium Level 2.3, Total Bilirubin 0.3, Aspartate Amino Transf ( AST/SGOT) 12L, Alanine Aminotransferase (ALT/SGPT) 16, Alkaline Phosphatase 64, C-Reactive Protein, Quantitative > 70.0H, Total Protein 7.4, Albumin 1.9L, Globulin 5.5, Albumin/Globulin Ratio 0.3L, Random Vancomycin Level 7.8 Current Medications Medications (Trade) Dose Ordered Sig/Evelio Route PRN Reason Start Time Stop Time Status Last Admin Dose Admin Acetaminophen (Tylenol) 325 mg Q4H PRN ORAL Mild Pain (Pain Scale 1-3) 03/09/18 07:30 04/08/18 07:29 Acetaminophen (Tylenol) 650 mg Q6H PRN ORAL T>100.5 03/09/18 06:45 04/08/18 06:44 03/09/18 21:24 Ascorbic Acid (Vitamin C) 500 mg DAILY GT 03/09/18 09:00 04/08/18 08:59 03/10/18 08:33 Aspirin (ASA) 81 mg DAILY GT 03/09/18 09:00 04/08/18 08:59 03/10/18 08:33 Bisacodyl (Dulcolax) 10 mg HSPRN PRN RECTAL Constipation 03/09/18 06:45 04/08/18 06:44 Dextrose (Dextrose 50%) 25 ml STAT PRN IV Hypoglycemia 03/09/18 08:00 04/08/18 07:59 Dextrose (Dextrose 50%) 50 ml STAT PRN IV Hypoglycemia 03/09/18 08:00 04/08/18 07:59 Docusate Sodium (Colace) 100 mg Q12H PRN GT Constipation 03/09/18 06:45 04/08/18 06:44 Docusate Sodium (Colace) 100 mg Q12HR GT 03/09/18 09:00 04/08/18 08:59 03/10/18 08:33 Folic Acid (Folate) 1 mg DAILY GT 03/09/18 09:00 04/08/18 08:59 03/10/18 08:33 Heparin Sodium (Porcine) (Heparin 5000 units/ml) 5,000 units EVERY 12 HOURS SUBQ 03/09/18 09:00 04/08/18 08:59 03/10/18 08:35 Insulin Aspart (NovoLOG) BEFORE MEALS AND HS SUBQ 03/09/18 11:30 04/08/18 11:29 03/10/18 05:51 Ipratropium [place] (Atrovent) 500 mcg Q4H PRN HHN Shortness of Breath 03/09/18 06:45 03/14/18 06:44 Magnesium Hydroxide (Mom) 30 ml HSPRN PRN ORAL Constipation 03/09/18 06:45 04/08/18 06:44 Metoclopramide HCl (Reglan) 4 mg EVERY 6 HOURS GT 03/09/18 12:00 04/08/18 11:59 03/10/18 05:28 Ondansetron HCl (Zofran) 4 mg Q6H PRN IVP Nausea & Vomiting 03/09/18 07:30 04/08/18 07:29 Piperacillin Sod/ Tazobactam Sod 3.375 gm/Dextrose 110 ml @ 27.5 mls/hr EVERY 8 HOURS IVPB 03/09/18 14:00 03/14/18 13:59 03/10/18 05:29 Polyethylene Glycol (Miralax) 17 gm HSPRN PRN ORAL Constipation 03/09/18 21:00 04/08/18 20:59 Sitagliptin Phosphate (Januvia) 25 mg DAILY GT 03/09/18 09:00 04/08/18 08:59 03/10/18 08:33 Sodium Chloride 1,000 ml @ 125 mls/hr Q8H IV 03/09/18 13:30 04/08/18 13:29 03/10/18 05:28 Tramadol HCl (Ultram) 50 mg Q6H PRN GT Moderate Pain (Pain Scale 4-6) 03/09/18 06:45 03/16/18 06:44 Vancomycin HCl (Vanco rx to dose) 1 ea DAILY PRN MISC Per rx protocol 03/09/18 06:45 04/08/18 06:44 Vancomycin/Sodium Chloride 250 ml @ 166.667 mls/hr Q24H IVPB 03/10/18 11:00 03/15/18 10:59 Neil Goldstein MD Mar 10, 2018 10:56
[2018-03-10] MEDS ORDERED: Tubing IV Secondary IV ONE (11:11)
[2018-03-10 12:00] VITALS: BP 123/69
[2018-03-10] MEDS: Vancomycin 750mg/NS 250ml IVPB SCH (12:19)
--- NOTE | 2018-03-10 15:21 | Internal Med Progress Note ---
Subjective Date of Service: Mar 10, 2018 Physician Name Esteban Yu Attending Physician Jesus Puckett MD Current Medications Medications (Trade) Dose Ordered Sig/Evelio Route PRN Reason Start Time Stop Time Status Last Admin Dose Admin Acetaminophen (Tylenol) 325 mg Q4H PRN ORAL Mild Pain (Pain Scale 1-3) 03/09/18 07:30 04/08/18 07:29 Acetaminophen (Tylenol) 650 mg Q6H PRN ORAL T>100.5 03/09/18 06:45 04/08/18 06:44 03/09/18 21:24 Ascorbic Acid (Vitamin C) 500 mg DAILY GT 03/09/18 09:00 04/08/18 08:59 03/10/18 08:33 Aspirin (ASA) 81 mg DAILY GT 03/09/18 09:00 04/08/18 08:59 03/10/18 08:33 Bisacodyl (Dulcolax) 10 mg HSPRN PRN RECTAL Constipation 03/09/18 06:45 04/08/18 06:44 Dextrose (Dextrose 50%) 25 ml STAT PRN IV Hypoglycemia 03/09/18 08:00 04/08/18 07:59 Dextrose (Dextrose 50%) 50 ml STAT PRN IV Hypoglycemia 03/09/18 08:00 04/08/18 07:59 Docusate Sodium (Colace) 100 mg Q12H PRN GT Constipation 03/09/18 06:45 04/08/18 06:44 Docusate Sodium (Colace) 100 mg Q12HR GT 03/09/18 09:00 04/08/18 08:59 03/10/18 08:33 Folic Acid (Folate) 1 mg DAILY GT 03/09/18 09:00 04/08/18 08:59 03/10/18 08:33 Heparin Sodium (Porcine) (Heparin 5000 units/ml) 5,000 units EVERY 12 HOURS SUBQ 03/09/18 09:00 04/08/18 08:59 03/10/18 08:35 Insulin Aspart (NovoLOG) BEFORE MEALS AND HS SUBQ 03/09/18 11:30 04/08/18 11:29 03/10/18 12:25 Ipratropium [place] (Atrovent) 500 mcg Q4H PRN HHN Shortness of Breath 03/09/18 06:45 03/14/18 06:44 Magnesium Hydroxide (Mom) 30 ml HSPRN PRN ORAL Constipation 03/09/18 06:45 04/08/18 06:44 Metoclopramide HCl (Reglan) 4 mg EVERY 6 HOURS GT 03/09/18 12:00 04/08/18 11:59 03/10/18 12:18 Ondansetron HCl (Zofran) 4 mg Q6H PRN IVP Nausea & Vomiting 03/09/18 07:30 04/08/18 07:29 Piperacillin Sod/ Tazobactam Sod 3.375 gm/Dextrose 110 ml @ 27.5 mls/hr EVERY 8 HOURS IVPB 03/09/18 14:00 03/14/18 13:59 03/10/18 14:30 Polyethylene Glycol (Miralax) 17 gm HSPRN PRN ORAL Constipation 03/09/18 21:00 04/08/18 20:59 Sitagliptin Phosphate (Januvia) 25 mg DAILY GT 03/09/18 09:00 04/08/18 08:59 03/10/18 08:33 Sodium Chloride 1,000 ml @ 125 mls/hr Q8H IV 03/09/18 13:30 04/08/18 13:29 03/10/18 05:28 Tramadol HCl (Ultram) 50 mg Q6H PRN GT Moderate Pain (Pain Scale 4-6) 03/09/18 06:45 03/16/18 06:44 Vancomycin HCl (Vanco rx to dose) 1 ea DAILY PRN MISC Per rx protocol 03/09/18 06:45 04/08/18 06:44 Vancomycin/Sodium Chloride 250 ml @ 166.667 mls/hr Q24H IVPB 03/10/18 11:00 03/15/18 10:59 03/10/18 12:19 Allergies: Coded Allergies: No Known Allergies (Verified , 05/12/08) ROS Limited/Unobtainable: Yes Subjective 87 YO M admitted with fever and shortness of breath. Now sepsis and UTI. Cover for Int Katherine Puckett Objective Last Vital Signs Date Time Temp Pulse Resp B/P (MAP) Pulse Ox O2 Delivery O2 Flow Rate FiO2 03/10/18 08:24 Nasal Cannula 2.0 28 03/10/18 08:24 105 22 03/10/18 08:24 95 03/10/18 08:00 98.2 115/67 98.2 General Appearance: WD/WN, no apparent distress, alert EENT: PERRL/EOMI, normal ENT inspection Neck: non-tender, normal alignment, supple, normal inspection Cardiovascular: normal peripheral pulses, normal rate, regular rhythm, no gallop/murmur, no JVD Respiratory/Chest: chest wall non-tender, respiratory distress, crackles/rales , rhonchi - bilaterally, expiratory wheezing Abdomen: normal bowel sounds, non tender, soft, no organomegaly, no mass 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 Skin: normal pigmentation, warm/dry Laboratory Tests Test 03/10/18 06:50 03/10/18 12:15 White Blood Count 16.9 K/UL (4.8-10.8) H Red Blood Count 3.15 M/UL (4.70-6.10) L Hemoglobin 9.2 G/DL (14.2-18.0) L Hematocrit 28.4 % (42.0-52.0) L Mean Corpuscular Volume 90 FL (80-99) Mean Corpuscular Hemoglobin 29.2 PG (27.0-31.0) Mean Corpuscular Hemoglobin Concent 32.3 G/DL (32.0-36.0) Red Cell Distribution Width 15.6 % (11.6-14.8) H Platelet Count 318 K/UL (150-450) Mean Platelet Volume 8.0 FL (6.5-10.1) Neutrophils (%) (Auto) % (45.0-75.0) Lymphocytes (%) (Auto) % (20.0-45.0) Monocytes (%) (Auto) % (1.0-10.0) Eosinophils (%) (Auto) % (0.0-3.0) Basophils (%) (Auto) % (0.0-2.0) Differential Total Cells Counted 100 Neutrophils % (Manual) 89 % (45-75) H Lymphocytes % (Manual) 6 % (20-45) L Monocytes % (Manual) 5 % (1-10) Eosinophils % (Manual) 0 % (0-3) Basophils % (Manual) 0 % (0-2) Band Neutrophils 0 % (0-8) Platelet Estimate Adequate Platelet Morphology Normal Anisocytosis 1+ Erythrocyte Sedimentation Rate 125 MM/HR (0-20) H Prothrombin Time 10.4 SEC (9.30-11.50) Prothromb Time International Ratio 1.0 (0.9-1.1) Activated Partial Thromboplast Time 37 SEC (23-33) H Sodium Level 150 MMOL/L (136-145) H Potassium Level 3.8 MMOL/L (3.5-5.1) Chloride Level 118 MMOL/L (98-107) H Carbon Dioxide Level 19 MMOL/L (21-32) L Anion Gap 13 mmol/L (5-15) Blood Urea Nitrogen 43 mg/dL (7-18) H Creatinine 1.4 MG/DL (0.55-1.30) H Estimat Glomerular Filtration Rate mL/min (>60) Glucose Level 284 MG/DL (74-106) #H Lactic Acid Level 2.80 mmol/L (0.4-2.0) H 2.20 mmol/L (0.66-2.22) Calcium Level 8.6 MG/DL (8.5-10.1) Phosphorus Level 1.0 MG/DL (2.5-4.9) L Magnesium Level 2.3 MG/DL (1.8-2.4) Total Bilirubin 0.3 MG/DL (0.2-1.0) Aspartate Amino Transf (AST/SGOT) 12 U/L (15-37) L Alanine Aminotransferase (ALT/SGPT) 16 U/L (12-78) Alkaline Phosphatase 64 U/L (46-116) C-Reactive Protein, Quantitative > 70.0 mg/dL (0.00-0.90) H Total Protein 7.4 G/DL (6.4-8.2) Albumin 1.9 G/DL (3.4-5.0) L Globulin 5.5 g/dL Albumin/Globulin Ratio 0.3 (1.0-2.7) L Random Vancomycin Level 7.8 ug/mL Microbiology Date/Time Source Procedure Growth Status 03/09/18 01:40 Blood Blood Culture - Preliminary Resulted 03/09/18 01:25 Blood Blood Culture - Preliminary Resulted 03/09/18 22:30 Nasopharynx Influenza Types A,B Antigen (CLAUDINE) - Final Complete 03/09/18 01:42 Urine,Clean Catch Urine Culture - Preliminary Gram Negative Bacillus 1 Resulted 03/09/18 07:00 Foot Right Gram Stain - Final Resulted 03/09/18 07:00 Foot Right Wound Culture Pending Resulted 03/09/18 07:00 Sacral Ulcer Gram Stain - Final Resulted 03/09/18 07:00 Wound Culture - Preliminary Gram Negative Bacillus 1 Resulted Intake and Output 03/09/18 03/10/18 19:00 07:00 Intake Total 1045.0 ml 1577.5 ml Output Total 800 ml 450 ml Balance 245.0 ml 1127.5 ml Intake Oral 0 ml Free Water 100 ml 150 ml IV Total 540.0 ml 887.5 ml Tube Feeding 405 ml 540 ml Output Urine Total 800 ml 450 ml # Bowel Movements 2 Assessment/Plan Problem List: (1) Severe sepsis Assessment & Plan: Gram pos cocci-await ID and sensitivity. Continue vanco and zosyn per ID (2) CAD (coronary artery disease) (3) Dysphagia Assessment & Plan: S/P PEG-continue tube feeds (4) Hypercholesteremia (5) PVD (peripheral vascular disease) (6) SOB (shortness of breath) (7) HTN (hypertension) (8) Diabetes mellitus type II, uncontrolled Assessment & Plan: Continue novolog sliding scale and januvia (9) Chronic renal failure (10) UTI (urinary tract infection) Assessment & Plan: Gram neg mildred-await ID and sensitivity. Continue zosyn per ID (11) Acute encephalopathy (12) Anemia Status: not improved Esteban Yu MD Mar 10, 2018 15:21
[2018-03-10 16:00] VITALS: BP 122/69
--- NOTE | 2018-03-10 16:53 | Cardiology Report ---
APPROVED REPORT EKG Measurement Heart [id number] Sinus tachycardia Left axis deviation Abnormal ECG
--- NOTE | 2018-03-10 18:11 | Consultation ---
History of Present Illness General Date patient seen: Mar 10, 2018 Chief Complaint: Altered Level of Consciousness Reason for Consultation: sacral decubitus ulcer and left leg wounds Present Illness HPI 87M with multiple medical comorbidities who is under care of medical team was noted to have multiple ulcers/wounds upon admission. Surgery called to evaluate. patient seen, chart reviewed, patient examined. wound care provided. Allergies: Coded Allergies: No Known Allergies (Verified , 05/12/08) Medication History Scheduled Arginine/Ascorbate Sod/Magdalena AC (Arginaid Powder), 1 EACH GT BID, (Reported) Ascorbic Acid* (Ascorbic Acid*), 500 MG GT DAILY, (Reported) Aspirin* (Aspirin*), 81 MG GT DAILY, (Reported) Folic Acid* (Folic Acid*), 1 MG GT DAILY, (Reported) Heparin Sod (Porcine) (Heparin Sodium*), 5,000 UNITS SUBQ EVERY 12 HOURS, ( Reported) Metoclopramide Hcl* (Metoclopramide Hcl*), 4 MG GT EVERY 6 HOURS, (Reported) Sitagliptin (Januvia), 100 MG GT DAILY, (Reported) Scheduled PRN Acetaminophen* (Acetaminophen 325MG Tablet*), 325 MG GT Q4H PRN for For Pain, ( Reported) Acetaminophen* (Acetaminophen 325MG Tablet*), 650 MG GT Q6H PRN for FEVER, ( Reported) Docusate Sodium (Docusate Sodium), 100 MG GT EVERY 12 HOURS PRN for Constipation , (Reported) Ipratropium [facility] 0.5MG/2.5ML (Ipratropium [facility] 0.5MG/2.5ML), 0.5 MG HHN EVERY 4 HOURS PRN for Shortness of Breath, (Reported) Tramadol Hcl* (Ultram*), 50 MG GT Q6H PRN for For Pain, (Reported) Miscellaneous Medications Insulin Lispro (Humalog), 0 SUBQ, (Reported) Patient History Limited by: medical condition History Provided By: Medical Record, PMD Healthcare decision maker Resuscitation status Do Not Resuscitate Advanced Directive on File Past Medical/Surgical History Past Medical/Surgical History: (1) Dehydration (2) Toxic metabolic encephalopathy (3) Diabetes mellitus (4) Feeding by G-tube (5) History of CVA (cerebrovascular accident) (6) Limited mobility in bed (7) Proteinuria (8) Severe sepsis (9) Protein-calorie malnutrition, severe (10) Acute encephalopathy (11) Healthcare associated bacterial pneumonia (12) Hyperglycemia due to type 2 diabetes mellitus (13) Anemia (14) CAD (coronary artery disease) (15) Dysphagia (16) SOB (shortness of breath) (17) Hypercholesteremia (18) PVD (peripheral vascular disease) (19) UTI (urinary tract infection) (20) Chronic renal failure (21) HTN (hypertension) (22) Diabetes mellitus type II, uncontrolled (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) Review of Systems ROS Narrative cannot obtain given patients medical condition Physical Exam General Appearance: no apparent distress HEENT: atraumatic Neck: normal inspection Respiratory/Chest: normal breath sounds, no respiratory distress, no accessory muscle use Cardiovascular/Chest: normal rate Abdomen: soft, no organomegaly, no mass Neurologic: unresponsiveness Last 24 Hour Vital Signs Date Time Temp Pulse Resp B/P (MAP) Pulse Ox O2 Delivery O2 Flow Rate FiO2 03/10/18 08:24 Nasal Cannula 2.0 28 03/10/18 08:24 105 22 Nasal Cannula 2.0 28 03/10/18 08:24 95 Nasal Cannula 2.0 28 03/10/18 08:00 98.2 104 20 115/67 96 Nasal Cannula 2.0 98.2 03/10/18 04:00 99.0 108 29 113/66 96 Nasal Cannula 2.0 99.0 03/10/18 00:00 99.9 116 29 105/61 96 Nasal Cannula 2.0 99.9 03/09/18 22:23 99.9 03/09/18 21:24 101.7 03/09/18 20:00 101.7 117 28 107/63 96 Nasal Cannula 2.0 101.7 03/09/18 19:09 98 22 Nasal Cannula 2.0 28 03/09/18 19:09 Nasal Cannula 2.0 28 03/09/18 19:09 99 Nasal Cannula 2.0 28 Intake and Output 03/09/18 03/10/18 19:00 07:00 Intake Total 1045.0 ml 1577.5 ml Output Total 800 ml 450 ml Balance 245.0 ml 1127.5 ml Intake Oral 0 ml Free Water 100 ml 150 ml IV Total 540.0 ml 887.5 ml Tube Feeding 405 ml 540 ml Output Urine Total 800 ml 450 ml # Bowel Movements 2 Laboratory Tests Test 03/10/18 06:50 03/10/18 12:15 White Blood Count 16.9 K/UL (4.8-10.8) H Red Blood Count 3.15 M/UL (4.70-6.10) L Hemoglobin 9.2 G/DL (14.2-18.0) L Hematocrit 28.4 % (42.0-52.0) L Mean Corpuscular Volume 90 FL (80-99) Mean Corpuscular Hemoglobin 29.2 PG (27.0-31.0) Mean Corpuscular Hemoglobin Concent 32.3 G/DL (32.0-36.0) Red Cell Distribution Width 15.6 % (11.6-14.8) H Platelet Count 318 K/UL (150-450) Mean Platelet Volume 8.0 FL (6.5-10.1) Neutrophils (%) (Auto) % (45.0-75.0) Lymphocytes (%) (Auto) % (20.0-45.0) Monocytes (%) (Auto) % (1.0-10.0) Eosinophils (%) (Auto) % (0.0-3.0) Basophils (%) (Auto) % (0.0-2.0) Differential Total Cells Counted 100 Neutrophils % (Manual) 89 % (45-75) H Lymphocytes % (Manual) 6 % (20-45) L Monocytes % (Manual) 5 % (1-10) Eosinophils % (Manual) 0 % (0-3) Basophils % (Manual) 0 % (0-2) Band Neutrophils 0 % (0-8) Platelet Estimate Adequate Platelet Morphology Normal Anisocytosis 1+ Erythrocyte Sedimentation Rate 125 MM/HR (0-20) H Prothrombin Time 10.4 SEC (9.30-11.50) Prothromb Time International Ratio 1.0 (0.9-1.1) Activated Partial Thromboplast Time 37 SEC (23-33) H Sodium Level 150 MMOL/L (136-145) H Potassium Level 3.8 MMOL/L (3.5-5.1) Chloride Level 118 MMOL/L (98-107) H Carbon Dioxide Level 19 MMOL/L (21-32) L Anion Gap 13 mmol/L (5-15) Blood Urea Nitrogen 43 mg/dL (7-18) H Creatinine 1.4 MG/DL (0.55-1.30) H Estimat Glomerular Filtration Rate mL/min (>60) Glucose Level 284 MG/DL (74-106) #H Lactic Acid Level 2.80 mmol/L (0.4-2.0) H 2.20 mmol/L (0.66-2.22) Calcium Level 8.6 MG/DL (8.5-10.1) Phosphorus Level 1.0 MG/DL (2.5-4.9) L Magnesium Level 2.3 MG/DL (1.8-2.4) Total Bilirubin 0.3 MG/DL (0.2-1.0) Aspartate Amino Transf (AST/SGOT) 12 U/L (15-37) L Alanine Aminotransferase (ALT/SGPT) 16 U/L (12-78) Alkaline Phosphatase 64 U/L (46-116) C-Reactive Protein, Quantitative > 70.0 mg/dL (0.00-0.90) H Total Protein 7.4 G/DL (6.4-8.2) Albumin 1.9 G/DL (3.4-5.0) L Globulin 5.5 g/dL Albumin/Globulin Ratio 0.3 (1.0-2.7) L Random Vancomycin Level 7.8 ug/mL Microbiology Date/Time Source Procedure Growth Status 03/09/18 22:30 Nasopharynx Influenza Types A,B Antigen (CLAUDINE) - Final Complete Height (Feet): 5 Height (Inches): 8.00 Weight (Pounds): 120 Medications Current Medications Medications (Trade) Dose Ordered Sig/Evelio Route PRN Reason Start Time Stop Time Status Last Admin Dose Admin Acetaminophen (Tylenol) 325 mg Q4H PRN ORAL Mild Pain (Pain Scale 1-3) 03/09/18 07:30 04/08/18 07:29 Acetaminophen (Tylenol) 650 mg Q6H PRN ORAL T>100.5 03/09/18 06:45 04/08/18 06:44 03/09/18 21:24 Ascorbic Acid (Vitamin C) 500 mg DAILY GT 03/09/18 09:00 04/08/18 08:59 03/10/18 08:33 Aspirin (ASA) 81 mg DAILY GT 03/09/18 09:00 04/08/18 08:59 03/10/18 08:33 Bisacodyl (Dulcolax) 10 mg HSPRN PRN RECTAL Constipation 03/09/18 06:45 04/08/18 06:44 Dextrose (Dextrose 50%) 25 ml STAT PRN IV Hypoglycemia 03/09/18 08:00 04/08/18 07:59 Dextrose (Dextrose 50%) 50 ml STAT PRN IV Hypoglycemia 03/09/18 08:00 04/08/18 07:59 Docusate Sodium (Colace) 100 mg Q12H PRN GT Constipation 03/09/18 06:45 04/08/18 06:44 Docusate Sodium (Colace) 100 mg Q12HR GT 03/09/18 09:00 04/08/18 08:59 03/10/18 08:33 Folic Acid (Folate) 1 mg DAILY GT 03/09/18 09:00 04/08/18 08:59 03/10/18 08:33 Heparin Sodium (Porcine) (Heparin 5000 units/ml) 5,000 units EVERY 12 HOURS SUBQ 03/09/18 09:00 04/08/18 08:59 03/10/18 08:35 Insulin Aspart (NovoLOG) BEFORE MEALS AND HS SUBQ 03/09/18 11:30 04/08/18 11:29 03/10/18 12:[address] [facility] (Atrovent) 500 mcg Q4H PRN HHN Shortness of Breath 03/09/18 06:45 03/14/18 06:44 Magnesium Hydroxide (Mom) 30 ml HSPRN PRN ORAL Constipation 03/09/18 06:45 04/08/18 06:44 Metoclopramide HCl (Reglan) 4 mg EVERY 6 HOURS GT 03/09/18 12:00 04/08/18 11:59 03/10/18 12:18 Ondansetron HCl (Zofran) 4 mg Q6H PRN IVP Nausea & Vomiting 03/09/18 07:30 04/08/18 07:29 Piperacillin Sod/ Tazobactam Sod 3.375 gm/Dextrose 110 ml @ 27.5 mls/hr EVERY 8 HOURS IVPB 03/09/18 14:00 03/14/18 13:59 03/10/18 14:30 Polyethylene Glycol (Miralax) 17 gm HSPRN PRN ORAL Constipation 03/09/18 21:00 04/08/18 20:59 Sitagliptin Phosphate (Januvia) 25 mg DAILY GT 03/09/18 09:00 04/08/18 08:59 03/10/18 08:33 Sodium Chloride 1,000 ml @ 125 mls/hr Q8H IV 03/09/18 13:30 04/08/18 13:29 03/10/18 05:28 Tramadol HCl (Ultram) 50 mg Q6H PRN GT Moderate Pain (Pain Scale 4-6) 03/09/18 06:45 03/16/18 06:44 Vancomycin HCl (Vanco rx to dose) 1 ea DAILY PRN MISC Per rx protocol 03/09/18 06:45 04/08/18 06:44 Vancomycin/Sodium Chloride 250 ml @ 166.667 mls/hr Q24H IVPB 03/10/18 11:00 03/15/18 10:59 03/10/18 12:19 Assessment/Plan Problem List: (1) Sacral decubitus ulcer, stage II Assessment & Plan: Stage II sacral decubitus ulcer - clean, no signs of active infection. -Keep off wound, turn q2h, air mattress, foam dressing and skin protectant Left leg, foot, and heel wounds - clean, no signs of active infection -keep off wounds, foam dressings and skin protectant. no need for debridement at this time. wounds present upon admission and will be cared for while patient in hospital. thank you for this consultation. will follow with recs. ICD Codes: L89.152 - Pressure ulcer of sacral region, stage 2 SNOMED: [id number], [id number] Jaden Nicholson Mar 10, 2018 18:11
[2018-03-10 20:00] VITALS: BP 118/71
[2018-03-11] VITALS: BP 126/73
[2018-03-11] MEDS: Metoclopramide 10mg/10ml Liq GT SCH ×3 (00:31→11:24)
[2018-03-11 04:00] VITALS: BP 116/63
[2018-03-11] MEDS: Piperacillin/Tazobactam 3.375 GM in D5W 110 ML IVPB SCH ×3 (05:55→22:33)
[2018-03-11] MEDS: NS w/KCl 20mEq 1,000 ML IV SCH ×2 (05:55→13:30)
[2018-03-11] MEDS: NovoLOG Insulin Flexpen SUBQ SCH ×4 (05:56→20:31)
[2018-03-11 07:47] LABS: BASOPHILS % (AUTO) 0.5 % (0.0-2.0); EOSINOPHILS % (AUTO) 1.4 % (0.0-3.0); HEMATOCRIT 28.6 % (42.0-52.0); HEMOGLOBIN 8.9 G/DL (14.2-18.0); LYMPHOCYTES % (AUTO) 10.5 % (20.0-45.0); MEAN CORPUSCULAR VOLUME 90 FL (80-99); MONOCYTES % (AUTO) 3.8 % (1.0-10.0); NEUTROPHILS % (AUTO) 83.9 % (45.0-75.0); PLATELET COUNT 331 K/UL (150-450); RED BLOOD COUNT 3.16 M/UL (4.70-6.10); RED CELL DISTRIBUTION WIDTH 15.8 % (11.6-14.8)
[2018-03-11 08:00] VITALS: BP 116/65
[2018-03-11 08:16] LABS: ALANINE AMINOTRANSFERASE 24 U/L (12-78); ALBUMIN 1.9 G/DL (3.4-5.0); ALBUMIN/GLOBULIN RATIO 0.3 (1.0-2.7); ALKALINE PHOSPHATASE 72 U/L (46-116); ANION GAP 12 mmol/L (5-15); ASPARTATE AMINO TRANSFERASE 14 U/L (15-37); BILIRUBIN,TOTAL 0.3 MG/DL (0.2-1.0); BLOOD UREA NITROGEN 36 mg/dL (7-18); CALCIUM 8.8 MG/DL (8.5-10.1); CARBON DIOXIDE 21 MMOL/L (21-32); CHLORIDE 119 MMOL/L (98-107); CREATININE 1.3 MG/DL (0.55-1.30); PHOSPHORUS 1.7 MG/DL (2.5-4.9); SODIUM 152 MMOL/L (136-145)
[2018-03-11] MEDS: Ascorbic Acid 500mg tab GT SCH (09:38)
[2018-03-11] MEDS: Aspirin Baby 81mg GT SCH (09:38)
[2018-03-11] MEDS: sitaGLIPtin 25mg tab GT SCH (09:38)
[2018-03-11] MEDS: Docusate 100mg/10ml Liq GT SCH ×2 (09:39→20:29)
[2018-03-11] MEDS: Heparin 5000 units/ml inj SUBQ SCH ×2 (09:40→20:30)
[2018-03-11] MEDS: Vancomycin 750mg/NS 250ml IVPB SCH (11:23)
--- NOTE | 2018-03-11 11:45 | Internal Med Progress Note ---
Subjective Date of Service: Mar 11, 2018 Physician Name Esteban Yu Attending Physician Jesus Puckett MD Current Medications Medications (Trade) Dose Ordered Sig/Evelio Route PRN Reason Start Time Stop Time Status Last Admin Dose Admin Acetaminophen (Tylenol) 325 mg Q4H PRN ORAL Mild Pain (Pain Scale 1-3) 03/09/18 07:30 04/08/18 07:29 Acetaminophen (Tylenol) 650 mg Q6H PRN ORAL T>100.5 03/09/18 06:45 04/08/18 06:44 03/10/18 21:48 Ascorbic Acid (Vitamin C) 500 mg DAILY GT 03/09/18 09:00 04/08/18 08:59 03/11/18 09:38 Aspirin (ASA) 81 mg DAILY GT 03/09/18 09:00 04/08/18 08:59 03/11/18 09:38 Bisacodyl (Dulcolax) 10 mg HSPRN PRN RECTAL Constipation 03/09/18 06:45 04/08/18 06:44 Dextrose (Dextrose 50%) 25 ml STAT PRN IV Hypoglycemia 03/09/18 08:00 04/08/18 07:59 Dextrose (Dextrose 50%) 50 ml STAT PRN IV Hypoglycemia 03/09/18 08:00 04/08/18 07:59 Docusate Sodium (Colace) 100 mg Q12H PRN GT Constipation 03/09/18 06:45 04/08/18 06:44 Docusate Sodium (Colace) 100 mg Q12HR GT 03/09/18 09:00 04/08/18 08:59 03/11/18 09:39 Folic Acid (Folate) 1 mg DAILY GT 03/09/18 09:00 04/08/18 08:59 03/11/18 09:42 Heparin Sodium (Porcine) (Heparin 5000 units/ml) 5,000 units EVERY 12 HOURS SUBQ 03/09/18 09:00 04/08/18 08:59 03/11/18 09:40 Insulin Aspart (NovoLOG) BEFORE MEALS AND HS SUBQ 03/09/18 11:30 04/08/18 11:29 03/11/18 11:31 Ipratropium [place] (Atrovent) 500 mcg Q4H PRN HHN Shortness of Breath 03/09/18 06:45 03/14/18 06:44 Magnesium Hydroxide (Mom) 30 ml HSPRN PRN ORAL Constipation 03/09/18 06:45 04/08/18 06:44 Metoclopramide HCl (Reglan) 4 mg EVERY 6 HOURS GT 03/09/18 12:00 04/08/18 11:59 03/11/18 11:24 Ondansetron HCl (Zofran) 4 mg Q6H PRN IVP Nausea & Vomiting 03/09/18 07:30 04/08/18 07:29 Piperacillin Sod/ Tazobactam Sod 3.375 gm/Dextrose 110 ml @ 27.5 mls/hr EVERY 8 HOURS IVPB 03/09/18 14:00 03/14/18 13:59 03/11/18 05:55 Polyethylene Glycol (Miralax) 17 gm HSPRN PRN ORAL Constipation 03/09/18 21:00 04/08/18 20:59 Sitagliptin Phosphate (Januvia) 25 mg DAILY GT 03/09/18 09:00 04/08/18 08:59 03/11/18 09:38 Sodium Chloride 1,000 ml @ 125 mls/hr Q8H IV 03/09/18 13:30 04/08/18 13:29 03/11/18 05:55 Tramadol HCl (Ultram) 50 mg Q6H PRN GT Moderate Pain (Pain Scale 4-6) 03/09/18 06:45 03/16/18 06:44 Vancomycin HCl (Vanco rx to dose) 1 ea DAILY PRN MISC Per rx protocol 03/09/18 06:45 04/08/18 06:44 Vancomycin/Sodium Chloride 250 ml @ 166.667 mls/hr Q24H IVPB 03/10/18 11:00 03/15/18 10:59 03/11/18 11:23 Allergies: Coded Allergies: No Known Allergies (Verified , 05/12/08) ROS Limited/Unobtainable: Yes Subjective 87 YO M admitted with fever and shortness of breath. Now sepsis and UTI. Cover for Int [facility]-Dr Puckett. Low grade fever overnight. Objective Last Vital Signs Date Time Temp Pulse Resp B/P (MAP) Pulse Ox O2 Delivery O2 Flow Rate FiO2 03/11/18 08:09 103 20 Nasal Cannula 2.0 28 6/4/18 08:09 99 03/11/18 08:00 98.3 116/65 98.3 Laboratory Tests Test 03/10/18 12:15 03/11/18 06:55 Lactic Acid Level 2.20 mmol/L (0.66-2.22) White Blood Count 12.0 K/UL (4.8-10.8) H Red Blood Count 3.16 M/UL (4.70-6.10) L Hemoglobin 8.9 G/DL (14.2-18.0) L Hematocrit 28.6 % (42.0-52.0) L Mean Corpuscular Volume 90 FL (80-99) Mean Corpuscular Hemoglobin 28.2 PG (27.0-31.0) Mean Corpuscular Hemoglobin Concent 31.3 G/DL (32.0-36.0) L Red Cell Distribution Width 15.8 % (11.6-14.8) H Platelet Count 331 K/UL (150-450) Mean Platelet Volume 7.3 FL (6.5-10.1) Neutrophils (%) (Auto) 83.9 % (45.0-75.0) H Lymphocytes (%) (Auto) 10.5 % (20.0-45.0) L Monocytes (%) (Auto) 3.8 % (1.0-10.0) Eosinophils (%) (Auto) 1.4 % (0.0-3.0) Basophils (%) (Auto) 0.5 % (0.0-2.0) Sodium Level 152 MMOL/L (136-145) H Potassium Level 4.0 MMOL/L (3.5-5.1) Chloride Level 119 MMOL/L (98-107) H Carbon Dioxide Level 21 MMOL/L (21-32) Anion Gap 12 mmol/L (5-15) Blood Urea Nitrogen 36 mg/dL (7-18) H Creatinine 1.3 MG/DL (0.55-1.30) Estimat Glomerular Filtration Rate mL/min (>60) Glucose Level 265 MG/DL (74-106) H Calcium Level 8.8 MG/DL (8.5-10.1) Phosphorus Level 1.7 MG/DL (2.5-4.9) L Magnesium Level 2.2 MG/DL (1.8-2.4) Total Bilirubin 0.3 MG/DL (0.2-1.0) Aspartate Amino Transf (AST/SGOT) 14 U/L (15-37) L Alanine Aminotransferase (ALT/SGPT) 24 U/L (12-78) Alkaline Phosphatase 72 U/L (46-116) Total Protein 7.5 G/DL (6.4-8.2) Albumin 1.9 G/DL (3.4-5.0) L Globulin 5.6 g/dL Albumin/Globulin Ratio 0.3 (1.0-2.7) L Microbiology Date/Time Source Procedure Growth Status 03/09/18 01:40 Blood Blood Culture - Preliminary Staphylococcus Species Resulted 03/09/18 01:25 Blood Blood Culture - Preliminary Staphylococcus Species Resulted 03/09/18 22:30 Nasopharynx Influenza Types A,B Antigen (CLAUDINE) - Final Complete 03/09/18 01:42 Nasal Nares MRSA Culture - Final NO METHICILLIN RESISTANT STAPH AUREUS... Complete 03/09/18 01:42 Urine,Clean Catch Urine Culture - Final Pseudomonas Aeruginosa Complete 03/09/18 07:00 Foot Right Gram Stain - Final Resulted 03/09/18 07:00 Wound Culture - Preliminary Staphylococcus Aureus Resulted 03/09/18 07:00 Sacral Ulcer Gram Stain - Final Resulted 03/09/18 07:00 Wound Culture - Preliminary A.baumanii Complx - Mdr Resulted 03/09/18 01:42 Rectum VRE Culture - Final Enterococcus Faecium - Vre Complete Intake and Output 03/10/18 03/11/18 19:00 07:00 Intake Total 1517.5 ml 1577.5 ml Output Total 400 ml 950 ml Balance 1117.5 ml 627.5 ml Free Water 150 ml 150 ml IV Total 917.5 ml 887.5 ml Tube Feeding 450 ml 540 ml Output Urine Total 400 ml 950 ml # Bowel Movements 2 Objective General Appearance: WD/WN, no apparent distress, alert EENT: PERRL/EOMI, normal ENT inspection Neck: non-tender, normal alignment, supple, normal inspection Cardiovascular: normal peripheral pulses, normal rate, regular rhythm, no gallop/murmur, no JVD Respiratory/Chest: chest wall non-tender, respiratory distress, crackles/rales , rhonchi - bilaterally, expiratory wheezing Abdomen: normal bowel sounds, non tender, soft, no organomegaly, no mass Neurologic: blueprint reader II-XII grossly normal Skin: normal pigmentation, warm/dry Assessment/Plan Problem List: (1) Severe sepsis Assessment & Plan: Staph species. Continue vanco and zosyn per ID (2) CAD (coronary artery disease) (3) Dysphagia Assessment & Plan: S/P PEG-continue tube feeds (4) Hypercholesteremia (5) PVD (peripheral vascular disease) (6) SOB (shortness of breath) (7) HTN (hypertension) (8) Diabetes mellitus type II, uncontrolled Assessment & Plan: Continue novolog sliding scale and januvia (9) Chronic renal failure (10) UTI (urinary tract infection) Assessment & Plan: Pseudamonas aeruginosa. Continue zosyn per ID (11) Acute encephalopathy (12) Anemia (13) Sacral decubitus ulcer, stage II Assessment & Plan: See surgery note. Status: not improved Esteban Yu MD Mar 11, 2018 11:45
[2018-03-11 12:00] VITALS: BP 109/61
--- NOTE | 2018-03-11 14:37 | Pulmonology Progress Note ---
Assessment/Plan Problems: (1) Healthcare associated bacterial pneumonia (2) Acute encephalopathy (3) Severe sepsis (4) Feeding by G-tube (5) Hyperglycemia due to type 2 diabetes mellitus (6) Protein-calorie malnutrition, severe (7) Limited mobility in bed (8) History of CVA (cerebrovascular accident) Assessment/Plan change Iv fluid to d5W iv abx check cutlures, urine has GNR tolerating feeding Gtube site care dc unnecessary meds DNR is appropriate dvt prophylaxis Subjective ROS Limited/Unobtainable: No Allergies: Coded Allergies: No Known Allergies (Verified , 05/12/08) Objective Last 24 Hour Vital Signs Date Time Temp Pulse Resp B/P (MAP) Pulse Ox O2 Delivery O2 Flow Rate FiO2 03/11/18 12:00 98.4 100 32 109/61 97 Nasal Cannula 2.0 98.4 03/11/18 08:09 103 20 Nasal Cannula 2.0 28 03/11/18 08:09 Nasal Cannula 2.0 28 03/11/18 08:09 99 Nasal Cannula 2.0 28 03/11/18 08:00 98.3 103 35 116/65 97 Nasal Cannula 2.0 98.3 03/11/18 04:00 98.2 89 35 116/63 97 Nasal Cannula 2.0 98.2 03/11/18 00:00 98.8 93 35 126/73 97 Nasal Cannula 2.0 98.8 03/10/18 22:47 98.8 03/10/18 21:48 100.8 03/10/18 20:00 100.8 111 35 118/71 97 Nasal Cannula 2.0 100.8 03/10/18 19:55 Nasal Cannula 2.0 28 03/10/18 19:55 98 22 Nasal Cannula 2.0 28 03/10/18 19:55 99 Nasal Cannula 2.0 28 03/10/18 16:00 97.0 105 32 122/69 97 Nasal Cannula 2.0 97.0 Intake and Output 03/10/18 03/11/18 19:00 07:00 Intake Total 1517.5 ml 1577.5 ml Output Total 400 ml 950 ml Balance 1117.5 ml 627.5 ml Free Water 150 ml 150 ml IV Total 917.5 ml 887.5 ml Tube Feeding 450 ml 540 ml Output Urine Total 400 ml 950 ml # Bowel Movements 2 General Appearance: WD/WN HEENT: normocephalic, atraumatic Respiratory/Chest: chest wall non-tender, lungs clear Cardiovascular: normal peripheral pulses, normal rate Abdomen: normal bowel sounds, no organomegaly Genitourinary: normal external genitalia Extremities: no clubbing Skin: no rash Neurologic/Psychiatric: creche attendant II-XII grossly normal Lymphatic: no neck adenopathy Microbiology Date/Time Source Procedure Growth Status 03/09/18 01:40 Blood Blood Culture - Preliminary Staphylococcus Species Resulted 03/09/18 01:25 Blood Blood Culture - Preliminary Staphylococcus Species Resulted 03/09/18 22:30 Nasopharynx Influenza Types A,B Antigen (CLAUDINE) - Final Complete 03/09/18 01:42 Nasal Nares MRSA Culture - Final NO METHICILLIN RESISTANT STAPH AUREUS... Complete 03/09/18 01:42 Urine,Clean Catch Urine Culture - Final Pseudomonas Aeruginosa Complete 03/09/18 07:00 Foot Right Gram Stain - Final Resulted 03/09/18 07:00 Wound Culture - Preliminary Staphylococcus Aureus Resulted 03/09/18 07:00 Sacral Ulcer Gram Stain - Final Resulted 03/09/18 07:00 Wound Culture - Preliminary A.baumanii Complx - Mdr Resulted 03/09/18 01:42 Rectum VRE Culture - Final Enterococcus Faecium - Vre Complete Laboratory Tests 03/11/18 06:55: White Blood Count 12.0H, Red Blood Count 3.16L, Hemoglobin 8.9L, Hematocrit 28.6L, Mean Corpuscular Volume 90, Mean Corpuscular Hemoglobin 28.2, Mean Corpuscular Hemoglobin Concent 31.3L, Red Cell Distribution Width 15.8H, Platelet Count 331, Mean Platelet Volume 7.3, Neutrophils (%) (Auto) 83.9H, Lymphocytes (%) (Auto) 10.5L, Monocytes (%) (Auto) 3.8, Eosinophils (%) (Auto) 1.4, Basophils (%) (Auto) 0.5, Sodium Level 152H, Potassium Level 4.0, Chloride Level 119H, Carbon Dioxide Level 21, Anion Gap 12, Blood Urea Nitrogen 36H, Creatinine 1.3, Estimat Glomerular Filtration Rate , Glucose Level 265H, Calcium Level 8.8, Phosphorus Level 1.7L, Magnesium Level 2.2, Total Bilirubin 0.3, Aspartate Amino Transf (AST/SGOT) 14L, Alanine Aminotransferase (ALT/SGPT) 24, Alkaline Phosphatase 72, Total Protein 7.5, Albumin 1.9L, Globulin 5.6, Albumin/Globulin Ratio 0.3L Current Medications Medications (Trade) Dose Ordered Sig/Evelio Route PRN Reason Start Time Stop Time Status Last Admin Dose Admin Acetaminophen (Tylenol) 325 mg Q4H PRN ORAL Mild Pain (Pain Scale 1-3) 03/09/18 07:30 04/08/18 07:29 Acetaminophen (Tylenol) 650 mg Q6H PRN ORAL T>100.5 03/09/18 06:45 04/08/18 06:44 03/10/18 21:48 Ascorbic Acid (Vitamin C) 500 mg DAILY GT 03/09/18 09:00 04/08/18 08:59 03/11/18 09:38 Aspirin (ASA) 81 mg DAILY GT 03/09/18 09:00 04/08/18 08:59 03/11/18 09:38 Bisacodyl (Dulcolax) 10 mg HSPRN PRN RECTAL Constipation 03/09/18 06:45 04/08/18 06:44 Dextrose (Dextrose 50%) 25 ml STAT PRN IV Hypoglycemia 03/09/18 08:00 04/08/18 07:59 Dextrose (Dextrose 50%) 50 ml STAT PRN IV Hypoglycemia 03/09/18 08:00 04/08/18 07:59 Docusate Sodium (Colace) 100 mg Q12H PRN GT Constipation 03/09/18 06:45 04/08/18 06:44 Docusate Sodium (Colace) 100 mg Q12HR GT 03/09/18 09:00 04/08/18 08:59 03/11/18 09:39 Folic Acid (Folate) 1 mg DAILY GT 03/09/18 09:00 04/08/18 08:59 03/11/18 09:42 Heparin Sodium (Porcine) (Heparin 5000 units/ml) 5,000 units EVERY 12 HOURS SUBQ 03/09/18 09:00 04/08/18 08:59 03/11/18 09:40 Insulin Aspart (NovoLOG) BEFORE MEALS AND HS SUBQ 03/09/18 11:30 04/08/18 11:29 03/11/18 11:31 Ipratropium [place] (Atrovent) 500 mcg Q4H PRN HHN Shortness of Breath 03/09/18 06:45 03/14/18 06:44 Magnesium Hydroxide (Mom) 30 ml HSPRN PRN ORAL Constipation 03/09/18 06:45 04/08/18 06:44 Metoclopramide HCl (Reglan) 4 mg EVERY 6 HOURS GT 03/09/18 12:00 04/08/18 11:59 03/11/18 11:24 Ondansetron HCl (Zofran) 4 mg Q6H PRN IVP Nausea & Vomiting 03/09/18 07:30 04/08/18 07:29 Piperacillin Sod/ Tazobactam Sod 3.375 gm/Dextrose 110 ml @ 27.5 mls/hr EVERY 8 HOURS IVPB 03/09/18 14:00 03/14/18 13:59 03/11/18 05:55 Polyethylene Glycol (Miralax) 17 gm HSPRN PRN ORAL Constipation 03/09/18 21:00 04/08/18 20:59 Sitagliptin Phosphate (Januvia) 25 mg DAILY GT 03/09/18 09:00 04/08/18 08:59 03/11/18 09:38 Sodium Chloride 1,000 ml @ 125 mls/hr Q8H IV 03/09/18 13:30 04/08/18 13:29 03/11/18 05:55 Tramadol HCl (Ultram) 50 mg Q6H PRN GT Moderate Pain (Pain Scale 4-6) 03/09/18 06:45 03/16/18 06:44 Vancomycin HCl (Vanco rx to dose) 1 ea DAILY PRN MISC Per rx protocol 03/09/18 06:45 04/08/18 06:44 Vancomycin/Sodium Chloride 250 ml @ 166.667 mls/hr Q24H IVPB 03/10/18 11:00 03/15/18 10:59 03/11/18 11:23 Neil Goldstein MD Mar 11, 2018 14:37
--- NOTE | 2018-03-11 15:28 | General Surgery Progress Note ---
General Surgery-Progress Note Subjective Additional Comments no acute events. comfortable. Objective Last 24 Hour Vital Signs Date Time Temp Pulse Resp B/P (MAP) Pulse Ox O2 Delivery O2 Flow Rate FiO2 03/11/18 12:00 98.4 100 32 109/61 97 Nasal Cannula 2.0 98.4 03/11/18 08:09 103 20 Nasal Cannula 2.0 28 03/11/18 08:09 Nasal Cannula 2.0 28 03/11/18 08:09 99 Nasal Cannula 2.0 28 03/11/18 08:00 98.3 103 35 116/65 97 Nasal Cannula 2.0 98.3 03/11/18 04:00 98.2 89 35 116/63 97 Nasal Cannula 2.0 98.2 03/11/18 00:00 98.8 93 35 126/73 97 Nasal Cannula 2.0 98.8 03/10/18 22:47 98.8 03/10/18 21:48 100.8 03/10/18 20:00 100.8 111 35 118/71 97 Nasal Cannula 2.0 100.8 03/10/18 19:55 Nasal Cannula 2.0 28 03/10/18 19:55 98 22 Nasal Cannula 2.0 28 03/10/18 19:55 99 Nasal Cannula 2.0 28 03/10/18 16:00 97.0 105 32 122/69 97 Nasal Cannula 2.0 97.0 I&O Intake and Output 03/10/18 03/11/18 19:00 07:00 Intake Total 1517.5 ml 1577.5 ml Output Total 400 ml 950 ml Balance 1117.5 ml 627.5 ml Free Water 150 ml 150 ml IV Total 917.5 ml 887.5 ml Tube Feeding 450 ml 540 ml Output Urine Total 400 ml 950 ml # Bowel Movements 2 Dressing: saturated Wound: clean Extremities: cyanosis, no edema, no tenderness, other - see pics Laboratory Tests Test 03/11/18 06:55 White Blood Count 12.0 K/UL (4.8-10.8) H Red Blood Count 3.16 M/UL (4.70-6.10) L Hemoglobin 8.9 G/DL (14.2-18.0) L Hematocrit 28.6 % (42.0-52.0) L Mean Corpuscular Volume 90 FL (80-99) Mean Corpuscular Hemoglobin 28.2 PG (27.0-31.0) Mean Corpuscular Hemoglobin Concent 31.3 G/DL (32.0-36.0) L Red Cell Distribution Width 15.8 % (11.6-14.8) H Platelet Count 331 K/UL (150-450) Mean Platelet Volume 7.3 FL (6.5-10.1) Neutrophils (%) (Auto) 83.9 % (45.0-75.0) H Lymphocytes (%) (Auto) 10.5 % (20.0-45.0) L Monocytes (%) (Auto) 3.8 % (1.0-10.0) Eosinophils (%) (Auto) 1.4 % (0.0-3.0) Basophils (%) (Auto) 0.5 % (0.0-2.0) Sodium Level 152 MMOL/L (136-145) H Potassium Level 4.0 MMOL/L (3.5-5.1) Chloride Level 119 MMOL/L (98-107) H Carbon Dioxide Level 21 MMOL/L (21-32) Anion Gap 12 mmol/L (5-15) Blood Urea Nitrogen 36 mg/dL (7-18) H Creatinine 1.3 MG/DL (0.55-1.30) Estimat Glomerular Filtration Rate mL/min (>60) Glucose Level 265 MG/DL (74-106) H Calcium Level 8.8 MG/DL (8.5-10.1) Phosphorus Level 1.7 MG/DL (2.5-4.9) L Magnesium Level 2.2 MG/DL (1.8-2.4) Total Bilirubin 0.3 MG/DL (0.2-1.0) Aspartate Amino Transf (AST/SGOT) 14 U/L (15-37) L Alanine Aminotransferase (ALT/SGPT) 24 U/L (12-78) Alkaline Phosphatase 72 U/L (46-116) Total Protein 7.5 G/DL (6.4-8.2) Albumin 1.9 G/DL (3.4-5.0) L Globulin 5.6 g/dL Albumin/Globulin Ratio 0.3 (1.0-2.7) L Plan Problems: (1) Sacral decubitus ulcer, stage II Assessment & Plan: Stage II sacral decubitus ulcer - clean, no signs of active infection. -Keep off wound, turn q2h, air mattress, foam dressing and skin protectant Left leg, foot, and heel wounds - clean, no signs of active infection -keep off wounds, foam dressings and skin protectant. no need for debridement at this time. wounds present upon admission and will be cared for while patient in hospital. thank you for this consultation. will follow with recs. Jaden Nicholson Mar 11, 2018 15:28
--- NOTE | 2018-03-11 15:40 | Infectious Diseases Prog Note ---
Assessment/Plan Assessment/Plan Abx: IV Vanco /- Zosyn 03/09- Cefepime x1 03/09 Levo x1 03/09 Assessment: SEpsis - likely 2ry to PNA, possible PsA UTI, bacteremia (real vs contaminant)- r/o Cdiff, -CXR: Bibasilar atelectasis versus developing infiltrate. -u/a wbc 20-30, nit neg, leuk +3; ucx >100K PsA (nixon S) -03/09 Bcx / Staph sp (?CONS vs S.aureus); 03/10 Bcx p -sp cx p -influenza sc neg Fever/Leukocytosis, improving Sacral decubitus ulcer- no signs of infection -sacral wound cx: MDR ABC (Colonizer) B/l foot pressure ulcer- no signs of infection -wound cx : S. 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 Will continue to follow along with you. Discussed with RN. Subjective Allergies: Coded Allergies: No Known Allergies (Verified , 05/12/08) Subjective Tm 100.8, afebrile in >12hrs leukocytosis improving Bcx +staph sp; rpeat Bcx p sp cx p at 2L NC Objective Vital Signs Last 24 Hour Vital Signs Date Time Temp Pulse Resp B/P (MAP) Pulse Ox O2 Delivery O2 Flow Rate FiO2 03/11/18 12:00 98.4 100 32 109/61 97 Nasal Cannula 2.0 98.4 03/11/18 08:09 103 20 Nasal Cannula 2.0 28 03/11/18 08:09 Nasal Cannula 2.0 28 03/11/18 08:09 99 Nasal Cannula 2.0 28 03/11/18 08:00 98.3 103 35 116/65 97 Nasal Cannula 2.0 98.3 03/11/18 04:00 98.2 89 35 116/63 97 Nasal Cannula 2.0 98.2 03/11/18 00:00 98.8 93 35 126/73 97 Nasal Cannula 2.0 98.8 03/10/18 22:47 98.8 03/10/18 21:48 100.8 03/10/18 20:00 100.8 111 35 118/71 97 Nasal Cannula 2.0 100.8 03/10/18 19:55 Nasal Cannula 2.0 28 03/10/18 19:55 98 22 Nasal Cannula 2.0 28 03/10/18 19:55 99 Nasal Cannula 2.0 28 03/10/18 16:00 97.0 105 32 122/69 97 Nasal Cannula 2.0 97.0 Height (Feet): 5 Height (Inches): 8.00 Weight (Pounds): 120 Objective General Appearance: moderate distress, lethargic, Stupor Head: normocephalic, atraumatic Eyes: bilateral eye PERRL, bilateral eye EOMI ENT: dry mucus membranes - very dry Neck: full range of motion, supple, no meningismus Respiratory: chest non-tender, respiratory distress, decreased breath sounds, accessory muscle use, rhonchi, wheezing Cardiovascular #1: regular rate, rhythm, no murmur, tachycardia Gastrointestinal: normal bowel sounds, non tender, no mass, no organomegaly, no bruit, non-distended Musculoskeletal: back normal, other - contracted. Ulcer to heels and sacrum Neurologic: grossly normal Skin: warm/dry Microbiology Date/Time Source Procedure Growth Status 03/09/18 01:40 Blood Blood Culture - Preliminary Staphylococcus Species Resulted 03/09/18 01:25 Blood Blood Culture - Preliminary Staphylococcus Species Resulted 03/09/18 22:30 Nasopharynx Influenza Types A,B Antigen (CLAUDINE) - Final Complete 03/09/18 01:42 Nasal Nares MRSA Culture - Final NO METHICILLIN RESISTANT STAPH AUREUS... Complete 03/09/18 01:42 Urine,Clean Catch Urine Culture - Final Pseudomonas Aeruginosa Complete 03/09/18 07:00 Foot Right Gram Stain - Final Resulted 03/09/18 07:00 Wound Culture - Preliminary Staphylococcus Aureus Resulted 03/09/18 07:00 Sacral Ulcer Gram Stain - Final Resulted 03/09/18 07:00 Wound Culture - Preliminary A.baumanii Complx - Mdr Resulted 03/09/18 01:42 Rectum VRE Culture - Final Enterococcus Faecium - Vre Complete Laboratory Tests Test 03/11/18 06:55 White Blood Count 12.0 K/UL (4.8-10.8) H Red Blood Count 3.16 M/UL (4.70-6.10) L Hemoglobin 8.9 G/DL (14.2-18.0) L Hematocrit 28.6 % (42.0-52.0) L Mean Corpuscular Volume 90 FL (80-99) Mean Corpuscular Hemoglobin 28.2 PG (27.0-31.0) Mean Corpuscular Hemoglobin Concent 31.3 G/DL (32.0-36.0) L Red Cell Distribution Width 15.8 % (11.6-14.8) H Platelet Count 331 K/UL (150-450) Mean Platelet Volume 7.3 FL (6.5-10.1) Neutrophils (%) (Auto) 83.9 % (45.0-75.0) H Lymphocytes (%) (Auto) 10.5 % (20.0-45.0) L Monocytes (%) (Auto) 3.8 % (1.0-10.0) Eosinophils (%) (Auto) 1.4 % (0.0-3.0) Basophils (%) (Auto) 0.5 % (0.0-2.0) Sodium Level 152 MMOL/L (136-145) H Potassium Level 4.0 MMOL/L (3.5-5.1) Chloride Level 119 MMOL/L (98-107) H Carbon Dioxide Level 21 MMOL/L (21-32) Anion Gap 12 mmol/L (5-15) Blood Urea Nitrogen 36 mg/dL (7-18) H Creatinine 1.3 MG/DL (0.55-1.30) Estimat Glomerular Filtration Rate mL/min (>60) Glucose Level 265 MG/DL (74-106) H Calcium Level 8.8 MG/DL (8.5-10.1) Phosphorus Level 1.7 MG/DL (2.5-4.9) L Magnesium Level 2.2 MG/DL (1.8-2.4) Total Bilirubin 0.3 MG/DL (0.2-1.0) Aspartate Amino Transf (AST/SGOT) 14 U/L (15-37) L Alanine Aminotransferase (ALT/SGPT) 24 U/L (12-78) Alkaline Phosphatase 72 U/L (46-116) Total Protein 7.5 G/DL (6.4-8.2) Albumin 1.9 G/DL (3.4-5.0) L Globulin 5.6 g/dL Albumin/Globulin Ratio 0.3 (1.0-2.7) L Current Medications Medications (Trade) Dose Ordered Sig/Evelio Route PRN Reason Start Time Stop Time Status Last Admin Dose Admin Acetaminophen (Tylenol) 325 mg Q4H PRN ORAL Mild Pain (Pain Scale 1-3) 03/09/18 07:30 04/08/18 07:29 Acetaminophen (Tylenol) 650 mg Q6H PRN ORAL T>100.5 03/09/18 06:45 04/08/18 06:44 03/10/18 21:48 Bisacodyl (Dulcolax) 10 mg HSPRN PRN RECTAL Constipation 03/09/18 06:45 04/08/18 06:44 Dextrose 1,000 ml @ 125 mls/hr Q8H IV 03/11/18 14:45 04/10/18 14:44 Dextrose (Dextrose 50%) 25 ml STAT PRN IV Hypoglycemia 03/09/18 08:00 04/08/18 07:59 Dextrose (Dextrose 50%) 50 ml STAT PRN IV Hypoglycemia 03/09/18 08:00 04/08/18 07:59 Docusate Sodium (Colace) 100 mg Q12H PRN GT Constipation 03/09/18 06:45 04/08/18 06:44 Docusate Sodium (Colace) 100 mg Q12HR GT 03/09/18 09:00 04/08/18 08:59 03/11/18 09:39 Folic Acid (Folate) 1 mg DAILY GT 03/09/18 09:00 04/08/18 08:59 03/11/18 09:42 Heparin Sodium (Porcine) (Heparin 5000 units/ml) 5,000 units EVERY 12 HOURS SUBQ 03/09/18 09:00 04/08/18 08:59 03/11/18 09:40 Insulin Aspart (NovoLOG) BEFORE MEALS AND HS SUBQ 03/09/18 11:30 04/08/18 11:29 03/11/18 11:31 Ipratropium [place] (Atrovent) 500 mcg Q4H PRN HHN Shortness of Breath 03/09/18 06:45 03/14/18 06:44 Ondansetron HCl (Zofran) 4 mg Q6H PRN IVP Nausea & Vomiting 03/09/18 07:30 04/08/18 07:29 Piperacillin Sod/ Tazobactam Sod 3.375 gm/Dextrose 110 ml @ 27.5 mls/hr EVERY 8 HOURS IVPB 03/09/18 14:00 03/14/18 13:59 03/11/18 15:00 Polyethylene Glycol (Miralax) 17 gm HSPRN PRN ORAL Constipation 03/09/18 21:00 04/08/18 20:59 Sitagliptin Phosphate (Januvia) 25 mg DAILY GT 03/09/18 09:00 04/08/18 08:59 03/11/18 09:38 Vancomycin HCl (Vanco rx to dose) 1 ea DAILY PRN MISC Per rx protocol 03/09/18 06:45 04/08/18 06:44 Vancomycin/Sodium Chloride 250 ml @ 166.667 mls/hr Q24H IVPB 03/10/18 11:00 03/15/18 10:59 03/11/18 11:23 Baylee Mederos M.D. Mar 11, 2018 15:40
[2018-03-11 16:00] VITALS: BP 147/78
[2018-03-11 20:00] VITALS: BP 110/69
--- NOTE | 2018-03-11 23:34 | Consultation ---
History of Present Illness General Date patient seen: Mar 10, 2018 Chief Complaint: Altered Level of Consciousness Reason for Consultation: sacral decubitus ulcer and left leg wounds Present Illness HPI 87-year-old male, who presents with a chief complaint of fever, shortness of breath, and altered mental status. The pt is confuse and non verbal waxing and waning of consciousness. Allergies: Coded Allergies: No Known Allergies (Verified , 05/12/08) Medication History Scheduled Arginine/Ascorbate Sod/[place] AC (Arginaid Powder), 1 EACH GT BID, (Reported) Ascorbic Acid* (Ascorbic Acid*), 500 MG GT DAILY, (Reported) Aspirin* (Aspirin*), 81 MG GT DAILY, (Reported) Folic Acid* (Folic Acid*), 1 MG GT DAILY, (Reported) Heparin Sod (Porcine) (Heparin Sodium*), 5,000 UNITS SUBQ EVERY 12 HOURS, ( Reported) Metoclopramide Hcl* (Metoclopramide Hcl*), 4 MG GT EVERY 6 HOURS, (Reported) Sitagliptin (Januvia), 100 MG GT DAILY, (Reported) Scheduled PRN Acetaminophen* (Acetaminophen 325MG Tablet*), 325 MG GT Q4H PRN for For Pain, ( Reported) Acetaminophen* (Acetaminophen 325MG Tablet*), 650 MG GT Q6H PRN for FEVER, ( Reported) Docusate Sodium (Docusate Sodium), 100 MG GT EVERY 12 HOURS PRN for Constipation , (Reported) Ipratropium [place] 0.5MG/2.5ML (Ipratropium [place] 0.5MG/2.5ML), 0.5 MG HHN EVERY 4 HOURS PRN for Shortness of Breath, (Reported) Tramadol Hcl* (Ultram*), 50 MG GT Q6H PRN for For Pain, (Reported) Miscellaneous Medications Insulin Lispro (Humalog), 0 SUBQ, (Reported) Patient History Healthcare decision maker Resuscitation status Do Not Resuscitate Advanced Directive on File No Past Medical/Surgical History Past Medical/Surgical History: (1) Diabetes mellitus (2) Feeding by G-tube (3) History of CVA (cerebrovascular accident) (4) Limited mobility in bed (5) Proteinuria (6) Severe sepsis (7) Protein-calorie malnutrition, severe (8) Acute encephalopathy (9) Healthcare associated bacterial pneumonia (10) Hyperglycemia due to type 2 diabetes mellitus (11) Anemia (12) CAD (coronary artery disease) (13) Dysphagia (14) SOB (shortness of breath) (15) Hypercholesteremia (16) PVD (peripheral vascular disease) (17) UTI (urinary tract infection) (18) Chronic renal failure (19) HTN (hypertension) (20) Diabetes mellitus type II, uncontrolled (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) (22) Dehydration (23) Toxic metabolic encephalopathy (24) Ulcer of left heel (25) Sacral decubitus ulcer, stage II Review of Systems Psychiatric: Reports: prior hx, anxiety Physical Exam General Appearance: no apparent distress, confused Last 24 Hour Vital Signs Date Time Temp Pulse Resp B/P (MAP) Pulse Ox O2 Delivery O2 Flow Rate FiO2 03/11/18 20:00 98.2 111 20 110/69 96 Nasal Cannula 2.0 98.2 03/11/18 16:00 98.3 100 31 147/78 98 Nasal Cannula 2.0 98.3 03/11/18 12:00 98.4 100 32 109/61 97 Nasal Cannula 2.0 98.4 03/11/18 08:09 103 20 Nasal Cannula 2.0 28 03/11/18 08:09 Nasal Cannula 2.0 28 03/11/18 08:09 99 Nasal Cannula 2.0 28 03/11/18 08:00 98.3 103 35 116/65 97 Nasal Cannula 2.0 98.3 03/11/18 04:00 98.2 89 35 116/63 97 Nasal Cannula 2.0 98.2 03/11/18 00:00 98.8 93 35 126/73 97 Nasal Cannula 2.0 98.8 Intake and Output 03/10/18 03/11/18 19:00 07:00 Intake Total 1517.5 ml 1577.5 ml Output Total 400 ml 950 ml Balance 1117.5 ml 627.5 ml Free Water 150 ml 150 ml IV Total 917.5 ml 887.5 ml Tube Feeding 450 ml 540 ml Output Urine Total 400 ml 950 ml # Bowel Movements 2 Laboratory Tests Test 03/11/18 06:55 White Blood Count 12.0 K/UL (4.8-10.8) H Red Blood Count 3.16 M/UL (4.70-6.10) L Hemoglobin 8.9 G/DL (14.2-18.0) L Hematocrit 28.6 % (42.0-52.0) L Mean Corpuscular Volume 90 FL (80-99) Mean Corpuscular Hemoglobin 28.2 PG (27.0-31.0) Mean Corpuscular Hemoglobin Concent 31.3 G/DL (32.0-36.0) L Red Cell Distribution Width 15.8 % (11.6-14.8) H Platelet Count 331 K/UL (150-450) Mean Platelet Volume 7.3 FL (6.5-10.1) Neutrophils (%) (Auto) 83.9 % (45.0-75.0) H Lymphocytes (%) (Auto) 10.5 % (20.0-45.0) L Monocytes (%) (Auto) 3.8 % (1.0-10.0) Eosinophils (%) (Auto) 1.4 % (0.0-3.0) Basophils (%) (Auto) 0.5 % (0.0-2.0) Sodium Level 152 MMOL/L (136-145) H Potassium Level 4.0 MMOL/L (3.5-5.1) Chloride Level 119 MMOL/L (98-107) H Carbon Dioxide Level 21 MMOL/L (21-32) Anion Gap 12 mmol/L (5-15) Blood Urea Nitrogen 36 mg/dL (7-18) H Creatinine 1.3 MG/DL (0.55-1.30) Estimat Glomerular Filtration Rate mL/min (>60) Glucose Level 265 MG/DL (74-106) H Calcium Level 8.8 MG/DL (8.5-10.1) Phosphorus Level 1.7 MG/DL (2.5-4.9) L Magnesium Level 2.2 MG/DL (1.8-2.4) Total Bilirubin 0.3 MG/DL (0.2-1.0) Aspartate Amino Transf (AST/SGOT) 14 U/L (15-37) L Alanine Aminotransferase (ALT/SGPT) 24 U/L (12-78) Alkaline Phosphatase 72 U/L (46-116) Total Protein 7.5 G/DL (6.4-8.2) Albumin 1.9 G/DL (3.4-5.0) L Globulin 5.6 g/dL Albumin/Globulin Ratio 0.3 (1.0-2.7) L Height (Feet): 5 Height (Inches): 8.00 Weight (Pounds): 120 Medications Current Medications Medications (Trade) Dose Ordered Sig/Evelio Route PRN Reason Start Time Stop Time Status Last Admin Dose Admin Acetaminophen (Tylenol) 325 mg Q4H PRN ORAL Mild Pain (Pain Scale 1-3) 03/09/18 07:30 04/08/18 07:29 Acetaminophen (Tylenol) 650 mg Q6H PRN ORAL T>100.5 03/09/18 06:45 04/08/18 06:44 03/10/18 21:48 Bisacodyl (Dulcolax) 10 mg HSPRN PRN RECTAL Constipation 03/09/18 06:45 04/08/18 06:44 Dextrose 1,000 ml @ 125 mls/hr Q8H IV 03/11/18 14:45 04/10/18 14:44 03/11/18 16:52 Dextrose (Dextrose 50%) 25 ml STAT PRN IV Hypoglycemia 03/09/18 08:00 04/08/18 07:59 Dextrose (Dextrose 50%) 50 ml STAT PRN IV Hypoglycemia 03/09/18 08:00 04/08/18 07:59 Docusate Sodium (Colace) 100 mg Q12H PRN GT Constipation 03/09/18 06:45 04/08/18 06:44 Docusate Sodium (Colace) 100 mg Q12HR GT 03/09/18 09:00 04/08/18 08:59 03/11/18 20:29 Folic Acid (Folate) 1 mg DAILY GT 03/09/18 09:00 04/08/18 08:59 03/11/18 09:42 Heparin Sodium (Porcine) (Heparin 5000 units/ml) 5,000 units EVERY 12 HOURS SUBQ 03/09/18 09:00 04/08/18 08:59 03/11/18 20:30 Insulin Aspart (NovoLOG) BEFORE MEALS AND HS SUBQ 03/09/18 11:30 04/08/18 11:29 03/11/18 20:31 Ipratropium [place] (Atrovent) 500 mcg Q4H PRN HHN Shortness of Breath 03/09/18 06:45 03/14/18 06:44 Ondansetron HCl (Zofran) 4 mg Q6H PRN IVP Nausea & Vomiting 03/09/18 07:30 04/08/18 07:29 Piperacillin Sod/ Tazobactam Sod 3.375 gm/Dextrose 110 ml @ 27.5 mls/hr EVERY 8 HOURS IVPB 03/09/18 14:00 03/14/18 13:59 03/11/18 22:33 Polyethylene Glycol (Miralax) 17 gm HSPRN PRN ORAL Constipation 03/09/18 21:00 04/08/18 20:59 Sitagliptin Phosphate (Januvia) 25 mg DAILY GT 03/09/18 09:00 04/08/18 08:59 03/11/18 09:38 Vancomycin HCl (Vanco rx to dose) 1 ea DAILY PRN MISC Per rx protocol 03/09/18 06:45 04/08/18 06:44 Vancomycin/Sodium Chloride 250 ml @ 166.667 mls/hr Q24H IVPB 03/10/18 11:00 03/15/18 10:59 03/11/18 11:23 Assessment/Plan Assessment/Plan encephalopathy seroquel Mamie Morales M.D. Mar 11, 2018 23:34
--- NOTE | 2018-03-11 23:43 | Consultation ---
History of Present Illness General Date patient seen: Mar 10, 2018 Chief Complaint: Altered Level of Consciousness Reason for Consultation: sacral decubitus ulcer and left leg wounds Present Illness HPI 87-year-old male with a chief complaint of fever, shortness of breath, and altered mental status. the pt has Allergies: Coded Allergies: No Known Allergies (Verified , 05/12/08) Medication History Scheduled Arginine/Ascorbate Sod/[place] AC (Arginaid Powder), 1 EACH GT BID, (Reported) Ascorbic Acid* (Ascorbic Acid*), 500 MG GT DAILY, (Reported) Aspirin* (Aspirin*), 81 MG GT DAILY, (Reported) Folic Acid* (Folic Acid*), 1 MG GT DAILY, (Reported) Heparin Sod (Porcine) (Heparin Sodium*), 5,000 UNITS SUBQ EVERY 12 HOURS, ( Reported) Metoclopramide Hcl* (Metoclopramide Hcl*), 4 MG GT EVERY 6 HOURS, (Reported) Sitagliptin (Januvia), 100 MG GT DAILY, (Reported) Scheduled PRN Acetaminophen* (Acetaminophen 325MG Tablet*), 325 MG GT Q4H PRN for For Pain, ( Reported) Acetaminophen* (Acetaminophen 325MG Tablet*), 650 MG GT Q6H PRN for FEVER, ( Reported) Docusate Sodium (Docusate Sodium), 100 MG GT EVERY 12 HOURS PRN for Constipation , (Reported) Ipratropium [place] 0.5MG/2.5ML (Ipratropium [place] 0.5MG/2.5ML), 0.5 MG HHN EVERY 4 HOURS PRN for Shortness of Breath, (Reported) Tramadol Hcl* (Ultram*), 50 MG GT Q6H PRN for For Pain, (Reported) Miscellaneous Medications Insulin Lispro (Humalog), 0 SUBQ, (Reported) Patient History Healthcare decision maker Resuscitation status Do Not Resuscitate Advanced Directive on File No Physical Exam Last 24 Hour Vital Signs Date Time Temp Pulse Resp B/P (MAP) Pulse Ox O2 Delivery O2 Flow Rate FiO2 03/11/18 20:00 98.2 111 20 110/69 96 Nasal Cannula 2.0 98.2 03/11/18 16:00 98.3 100 31 147/78 98 Nasal Cannula 2.0 98.3 03/11/18 12:00 98.4 100 32 109/61 97 Nasal Cannula 2.0 98.4 03/11/18 08:09 103 20 Nasal Cannula 2.0 28 03/11/18 08:09 Nasal Cannula 2.0 28 03/11/18 08:09 99 Nasal Cannula 2.0 28 03/11/18 08:00 98.3 103 35 116/65 97 Nasal Cannula 2.0 98.3 03/11/18 04:00 98.2 89 35 116/63 97 Nasal Cannula 2.0 98.2 03/11/18 00:00 98.8 93 35 126/73 97 Nasal Cannula 2.0 98.8 Intake and Output 03/10/18 03/11/18 19:00 07:00 Intake Total 1517.5 ml 1577.5 ml Output Total 400 ml 950 ml Balance 1117.5 ml 627.5 ml Free Water 150 ml 150 ml IV Total 917.5 ml 887.5 ml Tube Feeding 450 ml 540 ml Output Urine Total 400 ml 950 ml # Bowel Movements 2 Laboratory Tests Test 03/11/18 06:55 White Blood Count 12.0 K/UL (4.8-10.8) H Red Blood Count 3.16 M/UL (4.70-6.10) L Hemoglobin 8.9 G/DL (14.2-18.0) L Hematocrit 28.6 % (42.0-52.0) L Mean Corpuscular Volume 90 FL (80-99) Mean Corpuscular Hemoglobin 28.2 PG (27.0-31.0) Mean Corpuscular Hemoglobin Concent 31.3 G/DL (32.0-36.0) L Red Cell Distribution Width 15.8 % (11.6-14.8) H Platelet Count 331 K/UL (150-450) Mean Platelet Volume 7.3 FL (6.5-10.1) Neutrophils (%) (Auto) 83.9 % (45.0-75.0) H Lymphocytes (%) (Auto) 10.5 % (20.0-45.0) L Monocytes (%) (Auto) 3.8 % (1.0-10.0) Eosinophils (%) (Auto) 1.4 % (0.0-3.0) Basophils (%) (Auto) 0.5 % (0.0-2.0) Sodium Level 152 MMOL/L (136-145) H Potassium Level 4.0 MMOL/L (3.5-5.1) Chloride Level 119 MMOL/L (98-107) H Carbon Dioxide Level 21 MMOL/L (21-32) Anion Gap 12 mmol/L (5-15) Blood Urea Nitrogen 36 mg/dL (7-18) H Creatinine 1.3 MG/DL (0.55-1.30) Estimat Glomerular Filtration Rate mL/min (>60) Glucose Level 265 MG/DL (74-106) H Calcium Level 8.8 MG/DL (8.5-10.1) Phosphorus Level 1.7 MG/DL (2.5-4.9) L Magnesium Level 2.2 MG/DL (1.8-2.4) Total Bilirubin 0.3 MG/DL (0.2-1.0) Aspartate Amino Transf (AST/SGOT) 14 U/L (15-37) L Alanine Aminotransferase (ALT/SGPT) 24 U/L (12-78) Alkaline Phosphatase 72 U/L (46-116) Total Protein 7.5 G/DL (6.4-8.2) Albumin 1.9 G/DL (3.4-5.0) L Globulin 5.6 g/dL Albumin/Globulin Ratio 0.3 (1.0-2.7) L Height (Feet): 5 Height (Inches): 8.00 Weight (Pounds): 120 Medications Current Medications Medications (Trade) Dose Ordered Sig/Evelio Route PRN Reason Start Time Stop Time Status Last Admin Dose Admin Acetaminophen (Tylenol) 325 mg Q4H PRN ORAL Mild Pain (Pain Scale 1-3) 03/09/18 07:30 04/08/18 07:29 Acetaminophen (Tylenol) 650 mg Q6H PRN ORAL T>100.5 03/09/18 06:45 04/08/18 06:44 03/10/18 21:48 Bisacodyl (Dulcolax) 10 mg HSPRN PRN RECTAL Constipation 03/09/18 06:45 04/08/18 06:44 Dextrose 1,000 ml @ 125 mls/hr Q8H IV 03/11/18 14:45 04/10/18 14:44 03/11/18 16:52 Dextrose (Dextrose 50%) 25 ml STAT PRN IV Hypoglycemia 03/09/18 08:00 04/08/18 07:59 Dextrose (Dextrose 50%) 50 ml STAT PRN IV Hypoglycemia 03/09/18 08:00 04/08/18 07:59 Docusate Sodium (Colace) 100 mg Q12H PRN GT Constipation 03/09/18 06:45 04/08/18 06:44 Docusate Sodium (Colace) 100 mg Q12HR GT 03/09/18 09:00 04/08/18 08:59 03/11/18 20:29 Folic Acid (Folate) 1 mg DAILY GT 03/09/18 09:00 04/08/18 08:59 03/11/18 09:42 Heparin Sodium (Porcine) (Heparin 5000 units/ml) 5,000 units EVERY 12 HOURS SUBQ 03/09/18 09:00 04/08/18 08:59 03/11/18 20:30 Insulin Aspart (NovoLOG) BEFORE MEALS AND HS SUBQ 03/09/18 11:30 04/08/18 11:29 03/11/18 20:31 Ipratropium [place] (Atrovent) 500 mcg Q4H PRN HHN Shortness of Breath 03/09/18 06:45 03/14/18 06:44 Ondansetron HCl (Zofran) 4 mg Q6H PRN IVP Nausea & Vomiting 03/09/18 07:30 04/08/18 07:29 Piperacillin Sod/ Tazobactam Sod 3.375 gm/Dextrose 110 ml @ 27.5 mls/hr EVERY 8 HOURS IVPB 03/09/18 14:00 03/14/18 13:59 03/11/18 22:33 Polyethylene Glycol (Miralax) 17 gm HSPRN PRN ORAL Constipation 03/09/18 21:00 04/08/18 20:59 Sitagliptin Phosphate (Januvia) 25 mg DAILY GT 03/09/18 09:00 04/08/18 08:59 03/11/18 09:38 Vancomycin HCl (Vanco rx to dose) 1 ea DAILY PRN MISC Per rx protocol 03/09/18 06:45 04/08/18 06:44 Vancomycin/Sodium Chloride 250 ml @ 166.667 mls/hr Q24H IVPB 03/10/18 11:00 03/15/18 10:59 03/11/18 11:23 Mamie Oliveira M.D. Mar 11, 2018 23:43
[2018-03-12] VITALS: BP 120/74
[2018-03-12 04:00] VITALS: BP 124/72
[2018-03-12] MEDS: Piperacillin/Tazobactam 3.375 GM in D5W 110 ML IVPB SCH ×3 (05:29→22:12)
[2018-03-12] MEDS: NovoLOG Insulin Flexpen SUBQ SCH ×4 (05:53→21:00)
[2018-03-12 08:00] VITALS: BP 139/77
[2018-03-12 08:20] LABS: BASOPHILS % (AUTO) 0.6 % (0.0-2.0); EOSINOPHILS % (AUTO) 2.7 % (0.0-3.0); HEMATOCRIT 29.7 % (42.0-52.0); HEMOGLOBIN 9.7 G/DL (14.2-18.0); MEAN CORPUSCULAR VOLUME 90 FL (80-99); MONOCYTES % (AUTO) 4.2 % (1.0-10.0); NEUTROPHILS % (AUTO) 82.4 % (45.0-75.0); PLATELET COUNT 334 K/UL (150-450); RED BLOOD COUNT 3.31 M/UL (4.70-6.10); RED CELL DISTRIBUTION WIDTH 15.6 % (11.6-14.8)
[2018-03-12] MEDS: Docusate 100mg/10ml Liq GT SCH ×3 (08:54→20:55)
[2018-03-12] MEDS: sitaGLIPtin 25mg tab GT SCH (08:54)
[2018-03-12] MEDS: Heparin 5000 units/ml inj SUBQ SCH ×2 (08:55→20:57)
[2018-03-12 09:03] LABS: ANION GAP 13 mmol/L (5-15); BLOOD UREA NITROGEN 39 mg/dL (7-18); CALCIUM 8.8 MG/DL (8.5-10.1); CARBON DIOXIDE 21 MMOL/L (21-32); CHLORIDE 113 MMOL/L (98-107); CREATININE 1.3 MG/DL (0.55-1.30); POTASSIUM 3.8 MMOL/L (3.5-5.1); SODIUM 147 MMOL/L (136-145)
[2018-03-12] MEDS: Vancomycin 750mg/NS 250ml IVPB SCH (11:00)
--- NOTE | 2018-03-12 11:06 | Diagnostic Imaging Report ---
Indication: Shortness of breath Technique: One view of the chest Comparison: 03/09/2018 Findings: Bilateral perihilar infiltrates and left perihilar atelectasis or scarring are unchanged. The heart size is normal. The aorta is tortuous ectatic and calcified Impression: Unchanged bilateral perihilar infiltrates and left perihilar atelectasis, over 3 days
[2018-03-12 12:00] VITALS: BP 110/72
[2018-03-12] MEDS: Vancomycin 1gm/D5W 275ml IVPB SCH ×2 (12:47)
--- NOTE | 2018-03-12 13:37 | Infectious Diseases Prog Note ---
Assessment/Plan Assessment/Plan Abx: IV Vanco /- Zosyn 03/09- Cefepime x1 03/09 Levo x1 03/09 Assessment: SEpsis - likely 2ry to PNA, possible PsA UTI, bacteremia (real vs contaminant)- r/o Cdiff, -CXR 03/12: Unchanged bilateral perihilar infiltrates and left perihilar atelectasis, over 3 days -CXR: Bibasilar atelectasis versus developing infiltrate. -u/a wbc 20-30, nit neg, leuk +3; ucx >100K PsA (nixon S) -03/09 Bcx 11/11 Staph epi; 03/10 Bcx NTD -sp cx p -influenza sc neg Fever/Leukocytosis, improving Sacral decubitus ulcer- no signs of infection -sacral wound cx: MDR ABC, S.a ureus, Strep sp, GNR (Colonizers) B/l foot pressure ulcer- no signs of infection -wound cx : S. 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 Will continue to follow along with you. Discussed with RN. Subjective Allergies: Coded Allergies: No Known Allergies (Verified , 05/12/08) Subjective afebrile in >36hrs lekocytosis overall improved repeat bcx NTD at 2l NC Objective Vital Signs Last 24 Hour Vital Signs Date Time Temp Pulse Resp B/P (MAP) Pulse Ox O2 Delivery O2 Flow Rate FiO2 03/12/18 08:00 97.9 99 18 139/77 97 Nasal Cannula 2.0 97.9 03/12/18 07:40 94 18 Nasal Cannula 2.0 28 03/12/18 07:40 Nasal Cannula 2.0 28 03/12/18 07:40 97 Nasal Cannula 2.0 28 03/12/18 04:00 97.7 92 23 124/72 97 Nasal Cannula 2.0 97.7 6/5/18 00:00 98.0 105 22 120/74 97 Nasal Cannula 2.0 98.0 03/11/18 20:00 98.2 111 20 110/69 96 Nasal Cannula 2.0 98.2 03/11/18 19:08 98 20 Nasal Cannula 2.0 28 03/11/18 19:08 98 Nasal Cannula 2.0 28 03/11/18 19:08 Nasal Cannula 2.0 28 03/11/18 16:00 98.3 100 31 147/78 98 Nasal Cannula 2.0 98.3 Height (Feet): 5 Height (Inches): 8.00 Weight (Pounds): 120 Objective General Appearance: moderate distress, lethargic, Stupor Head: normocephalic, atraumatic Eyes: bilateral eye PERRL, bilateral eye EOMI ENT: dry mucus membranes - very dry Neck: full range of motion, supple, no meningismus Respiratory: chest non-tender, respiratory distress, decreased breath sounds, accessory muscle use, rhonchi, wheezing Cardiovascular #1: regular rate, rhythm, no murmur, tachycardia Gastrointestinal: normal bowel sounds, non tender, no mass, no organomegaly, no bruit, non-distended Musculoskeletal: back normal, other - contracted. Ulcer to heels and sacrum Neurologic: grossly normal Skin: warm/dry Microbiology Date/Time Source Procedure Growth Status 03/10/18 16:25 Blood Blood Culture - Preliminary NO GROWTH AFTER 24 HOURS Resulted 03/10/18 16:10 Blood Blood Culture - Preliminary NO GROWTH AFTER 24 HOURS Resulted 03/09/18 22:30 Nasopharynx Influenza Types A,B Antigen (CLAUDINE) - Final Complete Laboratory Tests Test 03/12/18 07:40 03/12/18 10:20 White Blood Count 13.0 K/UL (4.8-10.8) H Red Blood Count 3.31 M/UL (4.70-6.10) L Hemoglobin 9.7 G/DL (14.2-18.0) L Hematocrit 29.7 % (42.0-52.0) L Mean Corpuscular Volume 90 FL (80-99) Mean Corpuscular Hemoglobin 29.3 PG (27.0-31.0) Mean Corpuscular Hemoglobin Concent 32.6 G/DL (32.0-36.0) Red Cell Distribution Width 15.6 % (11.6-14.8) H Platelet Count 334 K/UL (150-450) Mean Platelet Volume 6.9 FL (6.5-10.1) Neutrophils (%) (Auto) 82.4 % (45.0-75.0) H Lymphocytes (%) (Auto) 10.0 % (20.0-45.0) L Monocytes (%) (Auto) 4.2 % (1.0-10.0) Eosinophils (%) (Auto) 2.7 % (0.0-3.0) Basophils (%) (Auto) 0.6 % (0.0-2.0) Sodium Level 147 MMOL/L (136-145) H Potassium Level 3.8 MMOL/L (3.5-5.1) Chloride Level 113 MMOL/L (98-107) H Carbon Dioxide Level 21 MMOL/L (21-32) Anion Gap 13 mmol/L (5-15) Blood Urea Nitrogen 39 mg/dL (7-18) H Creatinine 1.3 MG/DL (0.55-1.30) Estimat Glomerular Filtration Rate mL/min (>60) Glucose Level 274 MG/DL (74-106) H Calcium Level 8.8 MG/DL (8.5-10.1) Vancomycin Level Trough 10.1 ug/mL (5.0-12.0) Current Medications Medications (Trade) Dose Ordered Sig/Evelio Route PRN Reason Start Time Stop Time Status Last Admin Dose Admin Acetaminophen (Tylenol) 325 mg Q4H PRN ORAL Mild Pain (Pain Scale 1-3) 03/09/18 07:30 04/08/18 07:29 Acetaminophen (Tylenol) 650 mg Q6H PRN ORAL T>100.5 03/09/18 06:45 04/08/18 06:44 03/10/18 21:48 Bisacodyl (Dulcolax) 10 mg HSPRN PRN RECTAL Constipation 03/09/18 06:45 04/08/18 06:44 Dextrose 1,000 ml @ 125 mls/hr Q8H IV 03/11/18 14:45 04/10/18 14:44 03/12/18 05:29 Dextrose (Dextrose 50%) 25 ml STAT PRN IV Hypoglycemia 03/09/18 08:00 04/08/18 07:59 Dextrose (Dextrose 50%) 50 ml STAT PRN IV Hypoglycemia 03/09/18 08:00 04/08/18 07:59 Docusate Sodium (Colace) 100 mg Q12H PRN GT Constipation 03/09/18 06:45 04/08/18 06:44 Docusate Sodium (Colace) 100 mg Q12HR GT 03/09/18 09:00 04/08/18 08:59 03/11/18 20:29 Folic Acid (Folate) 1 mg DAILY GT 03/09/18 09:00 04/08/18 08:59 03/12/18 08:54 Heparin Sodium (Porcine) (Heparin 5000 units/ml) 5,000 units EVERY 12 HOURS SUBQ 03/09/18 09:00 04/08/18 08:59 03/12/18 08:55 Insulin Aspart (NovoLOG) BEFORE MEALS AND HS SUBQ 03/09/18 11:30 04/08/18 11:29 03/12/18 12:48 Ipratropium [place] (Atrovent) 500 mcg Q4H PRN HHN Shortness of Breath 03/09/18 06:45 03/14/18 06:44 Ondansetron HCl (Zofran) 4 mg Q6H PRN IVP Nausea & Vomiting 03/09/18 07:30 04/08/18 07:29 Piperacillin Sod/ Tazobactam Sod 3.375 gm/Dextrose 110 ml @ 27.5 mls/hr EVERY 8 HOURS IVPB 03/09/18 14:00 03/14/18 13:59 03/12/18 05:29 Polyethylene Glycol (Miralax) 17 gm HSPRN PRN ORAL Constipation 03/09/18 21:00 04/08/18 20:59 Quetiapine Fumarate (SEROquel) 12.5 mg EVERY 6 HOURS PRN ORAL For Anxiety 03/12/18 00:15 04/11/18 00:14 Sitagliptin Phosphate (Januvia) 25 mg DAILY GT 03/09/18 09:00 04/08/18 08:59 03/12/18 08:54 Vancomycin HCl (Vanco rx to dose) 1 ea DAILY PRN MISC Per rx protocol 03/09/18 06:45 04/08/18 06:44 Vancomycin HCl 1 gm/Dextrose 275 ml @ 183.708 mls/hr Q24H IVPB 03/12/18 12:00 03/17/18 11:59 03/12/18 12:47 Baylee Mederos M.D. Mar 12, 2018 13:37
--- NOTE | 2018-03-12 14:02 | General Progress Note ---
Assessment/Plan Status: stable Assessment/Plan encephalopathy seroquel prn d/w family Subjective Date patient seen: Mar 12, 2018 Neurologic/Psychiatric: Reports: depressed, emotional problems Allergies: Coded Allergies: No Known Allergies (Verified , 05/12/08) Subjective the pt is not verbal and has gtube not engaged no agitation or behavioral issues Objective Last 24 Hour Vital Signs Date Time Temp Pulse Resp B/P (MAP) Pulse Ox O2 Delivery O2 Flow Rate FiO2 03/12/18 08:00 97.9 99 18 139/77 97 Nasal Cannula 2.0 97.9 03/12/18 07:40 94 18 Nasal Cannula 2.0 28 03/12/18 07:40 Nasal Cannula 2.0 28 03/12/18 07:40 97 Nasal Cannula 2.0 28 03/12/18 04:00 97.7 92 23 124/72 97 Nasal Cannula 2.0 97.7 03/12/18 00:00 98.0 105 22 120/74 97 Nasal Cannula 2.0 98.0 03/11/18 20:00 98.2 111 20 110/69 96 Nasal Cannula 2.0 98.2 03/11/18 19:08 98 20 Nasal Cannula 2.0 28 03/11/18 19:08 98 Nasal Cannula 2.0 28 03/11/18 19:08 Nasal Cannula 2.0 28 03/11/18 16:00 98.3 100 31 147/78 98 Nasal Cannula 2.0 98.3 Intake and Output 03/11/18 03/12/18 19:00 07:00 Intake Total 1402.5 ml 1535.0 ml Output Total 1000 ml Balance 402.5 ml 1535.0 ml Free Water 250 ml 260 ml IV Total 567.5 ml 735.0 ml Tube Feeding 585 ml 540 ml Output Urine Total 1000 ml # Bowel Movements 4 Laboratory Tests 03/12/18 07:40: White Blood Count 13.0H, Red Blood Count 3.31L, Hemoglobin 9.7L, Hematocrit 29.7L, Mean Corpuscular Volume 90, Mean Corpuscular Hemoglobin 29.3, Mean Corpuscular Hemoglobin Concent 32.6, Red Cell Distribution Width 15.6H, Platelet Count 334, Mean Platelet Volume 6.9, Neutrophils (%) (Auto) 82.4H, Lymphocytes (%) (Auto) 10.0L, Monocytes (%) (Auto) 4.2, Eosinophils (%) (Auto) 2.7, Basophils (%) (Auto) 0.6, Sodium Level 147H, Potassium Level 3.8, Chloride Level 113H, Carbon Dioxide Level 21, Anion Gap 13, Blood Urea Nitrogen 39H, Creatinine 1.3, Estimat Glomerular Filtration Rate , Glucose Level 274H, Calcium Level 8.8 03/12/18 10:20: Vancomycin Level Trough 10.1 Height (Feet): 5 Height (Inches): 8.00 Weight (Pounds): 120 General Appearance: WD/WN, no apparent distress, alert, confused Mamie Oliveira M.D. Mar 12, 2018 14:02
--- NOTE | 2018-03-12 14:40 | Pulmonology Progress Note ---
Assessment/Plan Problems: (1) Healthcare associated bacterial pneumonia (2) Acute encephalopathy (3) Severe sepsis (4) Feeding by G-tube (5) Hyperglycemia due to type 2 diabetes mellitus (6) Protein-calorie malnutrition, severe (7) Limited mobility in bed (8) History of CVA (cerebrovascular accident) Assessment/Plan check electrolytes iv abx check cutlures, urine has GNR tolerating feeding Gtube site care DNR is appropriate dvt prophylaxis Subjective ROS Limited/Unobtainable: Yes Allergies: Coded Allergies: No Known Allergies (Verified , 05/12/08) Objective Last 24 Hour Vital Signs Date Time Temp Pulse Resp B/P (MAP) Pulse Ox O2 Delivery O2 Flow Rate FiO2 03/12/18 08:00 97.9 99 18 139/77 97 Nasal Cannula 2.0 97.9 03/12/18 07:40 94 18 Nasal Cannula 2.0 28 03/12/18 07:40 Nasal Cannula 2.0 28 03/12/18 07:40 97 Nasal Cannula 2.0 28 03/12/18 04:00 97.7 92 23 124/72 97 Nasal Cannula 2.0 97.7 03/12/18 00:00 98.0 105 22 120/74 97 Nasal Cannula 2.0 98.0 03/11/18 20:00 98.2 111 20 110/69 96 Nasal Cannula 2.0 98.2 03/11/18 19:08 98 20 Nasal Cannula 2.0 28 03/11/18 19:08 98 Nasal Cannula 2.0 28 03/11/18 19:08 Nasal Cannula 2.0 28 03/11/18 16:00 98.3 100 31 147/78 98 Nasal Cannula 2.0 98.3 Intake and Output 03/11/18 03/12/18 19:00 07:00 Intake Total 1402.5 ml 1535.0 ml Output Total 1000 ml Balance 402.5 ml 1535.0 ml Free Water 250 ml 260 ml IV Total 567.5 ml 735.0 ml Tube Feeding 585 ml 540 ml Output Urine Total 1000 ml # Bowel Movements 4 General Appearance: cachetic HEENT: normocephalic, atraumatic Respiratory/Chest: chest wall non-tender, lungs clear Cardiovascular: normal peripheral pulses, normal rate, regular rhythm Abdomen: normal bowel sounds, soft, non tender Genitourinary: normal external genitalia Microbiology Date/Time Source Procedure Growth Status 03/10/18 16:25 Blood Blood Culture - Preliminary NO GROWTH AFTER 24 HOURS Resulted 03/10/18 16:10 Blood Blood Culture - Preliminary NO GROWTH AFTER 24 HOURS Resulted 03/09/18 22:30 Nasopharynx Influenza Types A,B Antigen (CLAUDINE) - Final Complete Laboratory Tests 03/12/18 07:40: White Blood Count 13.0H, Red Blood Count 3.31L, Hemoglobin 9.7L, Hematocrit 29.7L, Mean Corpuscular Volume 90, Mean Corpuscular Hemoglobin 29.3, Mean Corpuscular Hemoglobin Concent 32.6, Red Cell Distribution Width 15.6H, Platelet Count 334, Mean Platelet Volume 6.9, Neutrophils (%) (Auto) 82.4H, Lymphocytes (%) (Auto) 10.0L, Monocytes (%) (Auto) 4.2, Eosinophils (%) (Auto) 2.7, Basophils (%) (Auto) 0.6, Sodium Level 147H, Potassium Level 3.8, Chloride Level 113H, Carbon Dioxide Level 21, Anion Gap 13, Blood Urea Nitrogen 39H, Creatinine 1.3, Estimat Glomerular Filtration Rate , Glucose Level 274H, Calcium Level 8.8 03/12/18 10:20: Vancomycin Level Trough 10.1 Current Medications Medications (Trade) Dose Ordered Sig/Evelio Route PRN Reason Start Time Stop Time Status Last Admin Dose Admin Acetaminophen (Tylenol) 325 mg Q4H PRN ORAL Mild Pain (Pain Scale 1-3) 03/09/18 07:30 04/08/18 07:29 Acetaminophen (Tylenol) 650 mg Q6H PRN ORAL T>100.5 03/09/18 06:45 04/08/18 06:44 03/10/18 21:48 Bisacodyl (Dulcolax) 10 mg HSPRN PRN RECTAL Constipation 03/09/18 06:45 04/08/18 06:44 Dextrose 1,000 ml @ 125 mls/hr Q8H IV 03/11/18 14:45 04/10/18 14:44 03/12/18 05:29 Dextrose (Dextrose 50%) 25 ml STAT PRN IV Hypoglycemia 03/09/18 08:00 04/08/18 07:59 Dextrose (Dextrose 50%) 50 ml STAT PRN IV Hypoglycemia 03/09/18 08:00 04/08/18 07:59 Docusate Sodium (Colace) 100 mg Q12H PRN GT Constipation 03/09/18 06:45 04/08/18 06:44 Docusate Sodium (Colace) 100 mg Q12HR GT 03/09/18 09:00 04/08/18 08:59 03/11/18 20:29 Folic Acid (Folate) 1 mg DAILY GT 03/09/18 09:00 04/08/18 08:59 03/12/18 08:54 Heparin Sodium (Porcine) (Heparin 5000 units/ml) 5,000 units EVERY 12 HOURS SUBQ 03/09/18 09:00 04/08/18 08:59 03/12/18 08:55 Insulin Aspart (NovoLOG) BEFORE MEALS AND HS SUBQ 03/09/18 11:30 04/08/18 11:29 03/12/18 12:48 Ipratropium [place] (Atrovent) 500 mcg Q4H PRN HHN Shortness of Breath 03/09/18 06:45 03/14/18 06:44 Ondansetron HCl (Zofran) 4 mg Q6H PRN IVP Nausea & Vomiting 03/09/18 07:30 04/08/18 07:29 Piperacillin Sod/ Tazobactam Sod 3.375 gm/Dextrose 110 ml @ 27.5 mls/hr EVERY 8 HOURS IVPB 03/09/18 14:00 03/14/18 13:59 03/12/18 05:29 Polyethylene Glycol (Miralax) 17 gm HSPRN PRN ORAL Constipation 03/09/18 21:00 04/08/18 20:59 Quetiapine Fumarate (SEROquel) 12.5 mg EVERY 6 HOURS PRN ORAL For Anxiety 03/12/18 00:15 04/11/18 00:14 Sitagliptin Phosphate (Januvia) 25 mg DAILY GT 03/09/18 09:00 04/08/18 08:59 03/12/18 08:54 Vancomycin HCl (Vanco rx to dose) 1 ea DAILY PRN MISC Per rx protocol 03/09/18 06:45 04/08/18 06:44 Vancomycin HCl 1 gm/Dextrose 275 ml @ 183.708 mls/hr Q24H IVPB 03/12/18 12:00 03/17/18 11:59 03/12/18 12:47 Neil Goldstein MD Mar 12, 2018 14:40
[2018-03-12 16:00] VITALS: BP 137/82
--- NOTE | 2018-03-12 16:45 | Consultation ---
Consult Note Assessment/Plan A/ 1) Non-pressure ulcer right lateral ankle to muscle 2) Non-pressure ulcer right heel UTD 3) Non-pressure ulcer right lateral foot to bone 4) h/o PAD 5) DM 6) Knee contracture P/ 1) Cont wound care as ordered 2) Will order bone scan to evaluate for osteomyelitis 3) Limb salvage prognosis is poor due to PVD, knee contracture and the numerous wounds on the right lower extremity. Patient wound benefit from AKA. 4) Cont offloading with heel protectors and floating heels. 5) Will continue to follow Thank you Jose Juan Kelsey DPM Mar 12, 2018 16:45
--- NOTE | 2018-03-12 16:58 | General Surgery Progress Note ---
General Surgery-Progress Note Subjective Additional Comments no acute events. Objective Last 24 Hour Vital Signs Date Time Temp Pulse Resp B/P (MAP) Pulse Ox O2 Delivery O2 Flow Rate FiO2 03/12/18 12:00 98.6 90 17 110/72 97 Nasal Cannula 2.0 98.6 03/12/18 08:00 97.9 99 18 139/77 97 Nasal Cannula 2.0 97.9 03/12/18 07:40 94 18 Nasal Cannula 2.0 28 03/12/18 07:40 Nasal Cannula 2.0 28 03/12/18 07:40 97 Nasal Cannula 2.0 28 03/12/18 04:00 97.7 92 23 124/72 97 Nasal Cannula 2.0 97.7 03/12/18 00:00 98.0 105 22 120/74 97 Nasal Cannula 2.0 98.0 03/11/18 20:00 98.2 111 20 110/69 96 Nasal Cannula 2.0 98.2 03/11/18 19:08 98 20 Nasal Cannula 2.0 28 03/11/18 19:08 98 Nasal Cannula 2.0 28 03/11/18 19:08 Nasal Cannula 2.0 28 I&O Intake and Output 03/11/18 03/12/18 19:00 07:00 Intake Total 1402.5 ml 1535.0 ml Output Total 1000 ml Balance 402.5 ml 1535.0 ml Free Water 250 ml 260 ml IV Total 567.5 ml 735.0 ml Tube Feeding 585 ml 540 ml Output Urine Total 1000 ml # Bowel Movements 4 Dressing: saturated Wound: other - exposed bone and muscle w/ multiple wounds on lower extremity and feet Drains: none Cardiovascular: RSR Respiratory: clear Abdomen: soft, flat Extremities: edema, tenderness, cyanosis Laboratory Tests Test 03/12/18 07:40 03/12/18 10:20 White Blood Count 13.0 K/UL (4.8-10.8) H Red Blood Count 3.31 M/UL (4.70-6.10) L Hemoglobin 9.7 G/DL (14.2-18.0) L Hematocrit 29.7 % (42.0-52.0) L Mean Corpuscular Volume 90 FL (80-99) Mean Corpuscular Hemoglobin 29.3 PG (27.0-31.0) Mean Corpuscular Hemoglobin Concent 32.6 G/DL (32.0-36.0) Red Cell Distribution Width 15.6 % (11.6-14.8) H Platelet Count 334 K/UL (150-450) Mean Platelet Volume 6.9 FL (6.5-10.1) Neutrophils (%) (Auto) 82.4 % (45.0-75.0) H Lymphocytes (%) (Auto) 10.0 % (20.0-45.0) L Monocytes (%) (Auto) 4.2 % (1.0-10.0) Eosinophils (%) (Auto) 2.7 % (0.0-3.0) Basophils (%) (Auto) 0.6 % (0.0-2.0) Sodium Level 147 MMOL/L (136-145) H Potassium Level 3.8 MMOL/L (3.5-5.1) Chloride Level 113 MMOL/L (98-107) H Carbon Dioxide Level 21 MMOL/L (21-32) Anion Gap 13 mmol/L (5-15) Blood Urea Nitrogen 39 mg/dL (7-18) H Creatinine 1.3 MG/DL (0.55-1.30) Estimat Glomerular Filtration Rate mL/min (>60) Glucose Level 274 MG/DL (74-106) H Calcium Level 8.8 MG/DL (8.5-10.1) Vancomycin Level Trough 10.1 ug/mL (5.0-12.0) Plan Problems: (1) Sacral decubitus ulcer, stage II Assessment & Plan: Stage II sacral decubitus ulcer - clean, no signs of active infection. -Keep off wound, turn q2h, air mattress, foam dressing and skin protectant Left leg, foot, and heel wounds - clean, no signs of active infection -keep off wounds, foam dressings and skin protectant. no need for debridement at this time. Right foot/leg with multiple wounds. down to bone and muscle. likely osteo. appreciate dpm input. -cont with dressings at this time. await bone scan. will discuss amputation with family. wounds present upon admission and will be cared for while patient in hospital. thank you for this consultation. will follow with recs. Jaden Nicholson Mar 12, 2018 16:58
--- NOTE | 2018-03-12 17:36 | Internal Med Progress Note ---
Subjective Date of Service: Mar 12, 2018 Physician Name Esteban Yu Attending Physician Jesus Puckett MD Current Medications Medications (Trade) Dose Ordered Sig/Evelio Route PRN Reason Start Time Stop Time Status Last Admin Dose Admin Acetaminophen (Tylenol) 325 mg Q4H PRN ORAL Mild Pain (Pain Scale 1-3) 03/09/18 07:30 04/08/18 07:29 Acetaminophen (Tylenol) 650 mg Q6H PRN ORAL T>100.5 03/09/18 06:45 04/08/18 06:44 03/10/18 21:48 Bisacodyl (Dulcolax) 10 mg HSPRN PRN RECTAL Constipation 03/09/18 06:45 04/08/18 06:44 Dextrose 1,000 ml @ 125 mls/hr Q8H IV 03/11/18 14:45 04/10/18 14:44 03/12/18 05:29 Dextrose (Dextrose 50%) 25 ml STAT PRN IV Hypoglycemia 03/09/18 08:00 04/08/18 07:59 Dextrose (Dextrose 50%) 50 ml STAT PRN IV Hypoglycemia 03/09/18 08:00 04/08/18 07:59 Docusate Sodium (Colace) 100 mg Q12H PRN GT Constipation 03/09/18 06:45 04/08/18 06:44 Docusate Sodium (Colace) 100 mg Q12HR GT 03/09/18 09:00 04/08/18 08:59 03/11/18 20:29 Folic Acid (Folate) 1 mg DAILY GT 03/09/18 09:00 04/08/18 08:59 03/12/18 08:54 Heparin Sodium (Porcine) (Heparin 5000 units/ml) 5,000 units EVERY 12 HOURS SUBQ 03/09/18 09:00 04/08/18 08:59 03/12/18 08:55 Insulin Aspart (NovoLOG) BEFORE MEALS AND HS SUBQ 03/09/18 11:30 04/08/18 11:29 03/12/18 12:48 Ipratropium [place] (Atrovent) 500 mcg Q4H PRN HHN Shortness of Breath 03/09/18 06:45 03/14/18 06:44 Ondansetron HCl (Zofran) 4 mg Q6H PRN IVP Nausea & Vomiting 03/09/18 07:30 04/08/18 07:29 Piperacillin Sod/ Tazobactam Sod 3.375 gm/Dextrose 110 ml @ 27.5 mls/hr EVERY 8 HOURS IVPB 03/09/18 14:00 03/14/18 13:59 03/12/18 15:43 Polyethylene Glycol (Miralax) 17 gm HSPRN PRN ORAL Constipation 03/09/18 21:00 04/08/18 20:59 Quetiapine Fumarate (SEROquel) 12.5 mg EVERY 6 HOURS PRN ORAL For Anxiety 03/12/18 00:15 04/11/18 00:14 Sitagliptin Phosphate (Januvia) 25 mg DAILY GT 03/09/18 09:00 04/08/18 08:59 03/12/18 08:54 Vancomycin HCl (Vanco rx to dose) 1 ea DAILY PRN MISC Per rx protocol 03/09/18 06:45 04/08/18 06:44 Vancomycin HCl 1 gm/Dextrose 275 ml @ 183.708 mls/hr Q24H IVPB 03/12/18 12:00 03/17/18 11:59 03/12/18 12:47 Allergies: Coded Allergies: No Known Allergies (Verified , 05/12/08) ROS Limited/Unobtainable: Yes Subjective 87 YO M admitted with fever and shortness of breath. Now sepsis and UTI. Cover for Int Med-Dr Puckett. Objective Last Vital Signs Date Time Temp Pulse Resp B/P (MAP) Pulse Ox O2 Delivery O2 Flow Rate FiO2 03/12/18 12:00 98.6 90 17 110/72 97 Nasal Cannula 2.0 98.6 03/12/18 07:40 28 Laboratory Tests Test 03/12/18 07:40 03/12/18 10:20 White Blood Count 13.0 K/UL (4.8-10.8) H Red Blood Count 3.31 M/UL (4.70-6.10) L Hemoglobin 9.7 G/DL (14.2-18.0) L Hematocrit 29.7 % (42.0-52.0) L Mean Corpuscular Volume 90 FL (80-99) Mean Corpuscular Hemoglobin 29.3 PG (27.0-31.0) Mean Corpuscular Hemoglobin Concent 32.6 G/DL (32.0-36.0) Red Cell Distribution Width 15.6 % (11.6-14.8) H Platelet Count 334 K/UL (150-450) Mean Platelet Volume 6.9 FL (6.5-10.1) Neutrophils (%) (Auto) 82.4 % (45.0-75.0) H Lymphocytes (%) (Auto) 10.0 % (20.0-45.0) L Monocytes (%) (Auto) 4.2 % (1.0-10.0) Eosinophils (%) (Auto) 2.7 % (0.0-3.0) Basophils (%) (Auto) 0.6 % (0.0-2.0) Sodium Level 147 MMOL/L (136-145) H Potassium Level 3.8 MMOL/L (3.5-5.1) Chloride Level 113 MMOL/L (98-107) H Carbon Dioxide Level 21 MMOL/L (21-32) Anion Gap 13 mmol/L (5-15) Blood Urea Nitrogen 39 mg/dL (7-18) H Creatinine 1.3 MG/DL (0.55-1.30) Estimat Glomerular Filtration Rate mL/min (>60) Glucose Level 274 MG/DL (74-106) H Calcium Level 8.8 MG/DL (8.5-10.1) Vancomycin Level Trough 10.1 ug/mL (5.0-12.0) Microbiology Date/Time Source Procedure Growth Status 03/10/18 16:25 Blood Blood Culture - Preliminary NO GROWTH AFTER 24 HOURS Resulted 03/10/18 16:10 Blood Blood Culture - Preliminary NO GROWTH AFTER 24 HOURS Resulted 03/09/18 22:30 Nasopharynx Influenza Types A,B Antigen (CLAUDINE) - Final Complete Intake and Output 03/11/18 03/12/18 19:00 07:00 Intake Total 1402.5 ml 1535.0 ml Output Total 1000 ml Balance 402.5 ml 1535.0 ml Free Water 250 ml 260 ml IV Total 567.5 ml 735.0 ml Tube Feeding 585 ml 540 ml Output Urine Total 1000 ml # Bowel Movements 4 Objective General Appearance: WD/WN, no apparent distress, alert EENT: PERRL/EOMI, normal ENT inspection Neck: non-tender, normal alignment, supple, normal inspection Cardiovascular: normal peripheral pulses, normal rate, regular rhythm, no gallop/murmur, no JVD Respiratory/Chest: chest wall non-tender, respiratory distress, crackles/rales , rhonchi - bilaterally, expiratory wheezing Abdomen: normal bowel sounds, non tender, soft, no organomegaly, no mass 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 Continue vanco and zosyn per ID (2) CAD (coronary artery disease) (3) Dysphagia Assessment & Plan: S/P PEG-continue tube feeds (4) Hypercholesteremia (5) PVD (peripheral vascular disease) (6) SOB (shortness of breath) (7) HTN (hypertension) (8) Diabetes mellitus type II, uncontrolled Assessment & Plan: Continue novolog sliding scale and januvia (9) Chronic renal failure (10) UTI (urinary tract infection) Assessment & Plan: Pseudamonas aeruginosa. Continue zosyn per ID (11) Acute encephalopathy (12) Anemia (13) Sacral decubitus ulcer, stage II Assessment & Plan: See surgery note. Status: not improved Esteban Yu MD Mar 12, 2018 17:36
[2018-03-12 20:00] VITALS: BP 110/66
--- NOTE | 2018-03-12 23:45 | Consultation ---
DATE OF CONSULTATION: 03/12/2018 CONSULTING PHYSICIAN: Jose Juan Kelsey D.P.M. REQUESTING PHYSICIAN: Esteban Yu M.D. and Jaden Nicholson M.D. REASON FOR CONSULTATION: Multiple bilateral lower extremity ulcers in the presence of diabetes mellitus. HISTORY OF PRESENT ILLNESS: The patient is an 87-year-old male, who was admitted to [facility] on 03/09/2018 for sepsis. The patient is nonverbal and history was obtained through chart review. PAST MEDICAL HISTORY: Significant for hypertension, type 2 diabetes mellitus, anemia of chronic renal disease, chronic renal failure, COPD, coronary artery disease, dysphagia, hypercholesterolemia and peripheral vascular disease. PAST SURGICAL HISTORY: Significant for PEG placement. MEDICATIONS: Per MAR and currently include vancomycin, Zosyn, and heparin for DVT prophylaxis. ALLERGIES: He has no known drug allergies. SOCIAL HISTORY: The patient [facility] in a [facility] facility. FAMILY HISTORY: Noncontributory. REVIEW OF SYSTEMS: Unobtainable. PHYSICAL EXAMINATION: VITAL SIGNS: Temperature is 98.6 degrees, pulse is 90, respiration rate of 17, blood pressure is 110/72, and saturating 97% on two liters nasal cannula. EXTREMITIES: Lower extremity physical exam, vascular, nonpalpable pedal pulses noted bilaterally. Feet are equally warm. No edema or cyanosis noted. DERMATOLOGICAL: There are multiple ulcerations noted of the right lower extremity mainly at the right first metatarsophalangeal joint.has The right lateral foot of the right heel on the right lateral ankle. The right lateral foot has bone exposed. The right heel has under terminal undeterminable depth and the right ankle was to the level of muscle. There are no signs of acute infection noted nor there is no malodor. There is no discharge noted. Periwound skin is normal, non-erythematous. MUSCULOSKELETAL: The patient is bedbound. There is a rigid knee contracture noted on the right knee. No other gross deformities are noted. LABORATORY AND DIAGNOSTIC DATA: White blood cell count is 13.0 down from admission of 20.0, hemoglobin and hematocrit is 9.7 and 29.7, and platelet count is 334. Sedimentation rate is 125. Sodium is 147, chloride is 113, BUN is 39, and glucose is 274. Lactic acid is 2.2 down from admission of 2.80. C-reactive protein is greater than 70. Albumin is 1.9. INR is 1.0. Imaging, venous ultrasound bilateral lower extremities shows no signs of deep venous thrombosis. ASSESSMENT: 1. Non-pressure ulcer of the right lateral ankle to muscle. 2. Non-pressure ulcer, right heel . 3. Non-pressure ulcer right lateral foot to bone. 4. History of peripheral arterial disease. 5. Diabetes mellitus. 6. Rigid knee contracture. PLAN: 1. Continue wound care as ordered. 2. We will order a bone scan to evaluate for osteomyelitis in light of increased inflammatory markers and exposed bone. 3. Limb salvage prognosis poor due to his comorbidities including peripheral arterial disease, knee contractions, and numerous wounds on right lower extremity. The patient will benefit from an above-knee amputation. 4. Continue offloading with heel protectors and floating heels. 5. We will continue to follow. Thank you for the courtesy of this consultation. Pilar DonatoPAmy DR: KAM JOB#: [id number] CC:
[2018-03-13] VITALS: BP 107/59
[2018-03-13 04:00] VITALS: BP 121/71
[2018-03-13] MEDS: Piperacillin/Tazobactam 3.375 GM in D5W 110 ML IVPB SCH ×3 (06:06→21:50)
[2018-03-13] MEDS: NovoLOG Insulin Flexpen SUBQ SCH ×4 (06:09→20:58)
[2018-03-13 08:00] VITALS: BP_SYST 110; BP_SYST 150; BP_DIAS 50; BP_DIAS 85
[2018-03-13] MEDS: Docusate 100mg/10ml Liq GT SCH ×2 (08:12→20:55)
[2018-03-13] MEDS: sitaGLIPtin 25mg tab GT SCH (08:12)
[2018-03-13] MEDS: Heparin 5000 units/ml inj SUBQ SCH ×2 (08:14→20:57)
[2018-03-13 08:17] LABS: HEMATOCRIT 27.7 % (42.0-52.0); HEMOGLOBIN 8.8 G/DL (14.2-18.0); MEAN CORPUSCULAR VOLUME 89 FL (80-99); PLATELET COUNT 313 K/UL (150-450); RED BLOOD COUNT 3.12 M/UL (4.70-6.10); RED CELL DISTRIBUTION WIDTH 15.8 % (11.6-14.8); WHITE BLOOD COUNT 13.1 K/UL (4.8-10.8)
[2018-03-13 08:39] LABS: ANION GAP 12 mmol/L (5-15); BLOOD UREA NITROGEN 34 mg/dL (7-18); CALCIUM 8.9 MG/DL (8.5-10.1); CARBON DIOXIDE 23 MMOL/L (21-32); CHLORIDE 108 MMOL/L (98-107); CREATININE 1.3 MG/DL (0.55-1.30); POTASSIUM 3.6 MMOL/L (3.5-5.1); SODIUM 143 MMOL/L (136-145)
--- NOTE | 2018-03-13 10:59 | Internal Med Progress Note ---
Subjective Date of Service: Mar 13, 2018 Physician Name Esteban Yu Attending Physician Jesus Puckett MD Current Medications Medications (Trade) Dose Ordered Sig/Evelio Route PRN Reason Start Time Stop Time Status Last Admin Dose Admin Acetaminophen (Tylenol) 325 mg Q4H PRN ORAL Mild Pain (Pain Scale 1-3) 03/09/18 07:30 04/08/18 07:29 Acetaminophen (Tylenol) 650 mg Q6H PRN ORAL T>100.5 03/09/18 06:45 04/08/18 06:44 03/10/18 21:48 Bisacodyl (Dulcolax) 10 mg HSPRN PRN RECTAL Constipation 03/09/18 06:45 04/08/18 06:44 Dextrose 1,000 ml @ 125 mls/hr Q8H IV 03/11/18 14:45 04/10/18 14:44 03/13/18 06:07 Dextrose (Dextrose 50%) 25 ml STAT PRN IV Hypoglycemia 03/09/18 08:00 04/08/18 07:59 Dextrose (Dextrose 50%) 50 ml STAT PRN IV Hypoglycemia 03/09/18 08:00 04/08/18 07:59 Docusate Sodium (Colace) 100 mg Q12H PRN GT Constipation 03/09/18 06:45 04/08/18 06:44 Docusate Sodium (Colace) 100 mg Q12HR GT 03/09/18 09:00 04/08/18 08:59 03/13/18 08:12 Folic Acid (Folate) 1 mg DAILY GT 03/09/18 09:00 04/08/18 08:59 03/13/18 08:12 Heparin Sodium (Porcine) (Heparin 5000 units/ml) 5,000 units EVERY 12 HOURS SUBQ 03/09/18 09:00 04/08/18 08:59 03/13/18 08:14 Insulin Aspart (NovoLOG) BEFORE MEALS AND HS SUBQ 03/09/18 11:30 04/08/18 11:29 03/13/18 06:09 Ipratropium [place] (Atrovent) 500 mcg Q4H PRN HHN Shortness of Breath 03/09/18 06:45 03/14/18 06:44 Ondansetron HCl (Zofran) 4 mg Q6H PRN IVP Nausea & Vomiting 03/09/18 07:30 04/08/18 07:29 Piperacillin Sod/ Tazobactam Sod 3.375 gm/Dextrose 110 ml @ 27.5 mls/hr EVERY 8 HOURS IVPB 03/09/18 14:00 03/14/18 13:59 03/13/18 06:06 Polyethylene Glycol (Miralax) 17 gm HSPRN PRN ORAL Constipation 03/09/18 21:00 04/08/18 20:59 Quetiapine Fumarate (SEROquel) 12.5 mg EVERY 6 HOURS PRN ORAL For Anxiety 03/12/18 00:15 04/11/18 00:14 Sitagliptin Phosphate (Januvia) 25 mg DAILY GT 03/09/18 09:00 04/08/18 08:59 03/13/18 08:12 Vancomycin HCl (Vanco rx to dose) 1 ea DAILY PRN MISC Per rx protocol 03/09/18 06:45 04/08/18 06:44 Vancomycin HCl 1 gm/Dextrose 275 ml @ 183.708 mls/hr Q24H IVPB 03/12/18 12:00 03/17/18 11:59 03/12/18 12:47 Allergies: Coded Allergies: No Known Allergies (Verified , 05/12/08) ROS Limited/Unobtainable: Yes Subjective 87 YO M admitted with fever and shortness of breath. Now sepsis,pneumonia and UTI. Cover for Int Med-Dr Puckett. Objective Last Vital Signs Date Time Temp Pulse Resp B/P (MAP) Pulse Ox O2 Delivery O2 Flow Rate FiO2 03/13/18 08:04 Nasal Cannula 2.0 28 03/13/18 08:04 97 03/13/18 08:04 81 18 03/13/18 04:00 97.4 121/71 97.4 Laboratory Tests Test 03/13/18 07:01 White Blood Count 13.1 K/UL (4.8-10.8) H Red Blood Count 3.12 M/UL (4.70-6.10) L Hemoglobin 8.8 G/DL (14.2-18.0) L Hematocrit 27.7 % (42.0-52.0) L Mean Corpuscular Volume 89 FL (80-99) Mean Corpuscular Hemoglobin 28.3 PG (27.0-31.0) Mean Corpuscular Hemoglobin Concent 31.9 G/DL (32.0-36.0) L Red Cell Distribution Width 15.8 % (11.6-14.8) H Platelet Count 313 K/UL (150-450) Mean Platelet Volume 7.1 FL (6.5-10.1) Neutrophils (%) (Auto) % (45.0-75.0) Lymphocytes (%) (Auto) % (20.0-45.0) Monocytes (%) (Auto) % (1.0-10.0) Eosinophils (%) (Auto) % (0.0-3.0) Basophils (%) (Auto) % (0.0-2.0) Differential Total Cells Counted 100 Neutrophils % (Manual) 82 % (45-75) H Lymphocytes % (Manual) 9 % (20-45) L Monocytes % (Manual) 4 % (1-10) Eosinophils % (Manual) 3 % (0-3) Basophils % (Manual) 0 % (0-2) Band Neutrophils 2 % (0-8) Platelet Estimate Adequate Platelet Morphology Normal Anisocytosis 1+ Sodium Level 143 MMOL/L (136-145) Potassium Level 3.6 MMOL/L (3.5-5.1) Chloride Level 108 MMOL/L (98-107) H Carbon Dioxide Level 23 MMOL/L (21-32) Anion Gap 12 mmol/L (5-15) Blood Urea Nitrogen 34 mg/dL (7-18) H Creatinine 1.3 MG/DL (0.55-1.30) Estimat Glomerular Filtration Rate mL/min (>60) Glucose Level 314 MG/DL (74-106) H Calcium Level 8.9 MG/DL (8.5-10.1) Microbiology Date/Time Source Procedure Growth Status 03/10/18 16:25 Blood Blood Culture - Preliminary NO GROWTH AFTER 48 HOURS Resulted 03/10/18 16:10 Blood Blood Culture - Preliminary NO GROWTH AFTER 48 HOURS Resulted 03/12/18 17:00 Sputum Induced Gram Stain Pending Resulted 03/12/18 17:00 Sputum Culture - Preliminary Gram Negative Bacillus 1 Resulted Intake and Output 03/12/18 03/13/18 19:00 07:00 Intake Total 1255.000 ml 1980.0 ml Output Total 800 ml Balance 455.000 ml 1980.0 ml Free Water 150 ml 250 ml IV Total 565.000 ml 1235.0 ml Tube Feeding 540 ml 495 ml Output Urine Total 800 ml # Bowel Movements 3 Objective General Appearance: WD/WN, no apparent distress, alert EENT: PERRL/EOMI, normal ENT inspection Neck: non-tender, normal alignment, supple, normal inspection Cardiovascular: normal peripheral pulses, normal rate, regular rhythm, no gallop/murmur, no JVD Respiratory/Chest: chest wall non-tender, respiratory distress, crackles/rales , rhonchi - bilaterally, expiratory wheezing Abdomen: normal bowel sounds, non tender, soft, no organomegaly, no mass 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 Continue vanco and zosyn per ID (2) CAD (coronary artery disease) (3) Dysphagia Assessment & Plan: S/P PEG-continue tube feeds (4) Hypercholesteremia (5) PVD (peripheral vascular disease) (6) SOB (shortness of breath) (7) HTN (hypertension) (8) Diabetes mellitus type II, uncontrolled Assessment & Plan: Continue novolog sliding scale and januvia (9) Chronic renal failure (10) UTI (urinary tract infection) Assessment & Plan: Pseudamonas aeruginosa. Continue zosyn per ID (11) Acute encephalopathy (12) Anemia (13) Sacral decubitus ulcer, stage II Assessment & Plan: See surgery note. (14) Pneumonia Assessment & Plan: Gram neg mildred. Continue antibiotic per ID Status: not improved Esteban Yu MD Mar 13, 2018 10:59
[2018-03-13 12:00] VITALS: BP 102/57
--- NOTE | 2018-03-13 12:25 | General Surgery Progress Note ---
General Surgery-Progress Note Subjective Additional Comments no acute events. Objective Last 24 Hour Vital Signs Date Time Temp Pulse Resp B/P (MAP) Pulse Ox O2 Delivery O2 Flow Rate FiO2 03/13/18 08:04 Nasal Cannula 2.0 28 03/13/18 08:04 97 Nasal Cannula 2.0 28 03/13/18 08:04 81 18 Nasal Cannula 2.0 28 03/13/18 08:00 97.1 93 20 110/50 100 Nasal Cannula 2.0 97.1 03/13/18 04:00 97.4 88 20 121/71 100 Nasal Cannula 2.0 97.4 03/13/18 00:00 98.0 89 20 107/59 100 Nasal Cannula 2.0 98.0 03/12/18 20:00 82 18 Nasal Cannula 2.0 28 03/12/18 20:00 Nasal Cannula 2.0 28 03/12/18 20:00 97.6 97 21 110/66 95 Nasal Cannula 2.0 97.6 03/12/18 20:00 98 Nasal Cannula 2.0 28 03/12/18 16:00 97.8 86 17 137/82 98 Nasal Cannula 2.0 97.8 I&O Intake and Output 03/12/18 03/13/18 19:00 07:00 Intake Total 1255.000 ml 1980.0 ml Output Total 800 ml Balance 455.000 ml 1980.0 ml Free Water 150 ml 250 ml IV Total 565.000 ml 1235.0 ml Tube Feeding 540 ml 495 ml Output Urine Total 800 ml # Bowel Movements 3 Dressing: saturated Wound: other - see photos Drains: none Cardiovascular: RSR Respiratory: clear Abdomen: soft, flat, non-tender Extremities: edema, tenderness, cyanosis Laboratory Tests Test 03/13/18 07:01 White Blood Count 13.1 K/UL (4.8-10.8) H Red Blood Count 3.12 M/UL (4.70-6.10) L Hemoglobin 8.8 G/DL (14.2-18.0) L Hematocrit 27.7 % (42.0-52.0) L Mean Corpuscular Volume 89 FL (80-99) Mean Corpuscular Hemoglobin 28.3 PG (27.0-31.0) Mean Corpuscular Hemoglobin Concent 31.9 G/DL (32.0-36.0) L Red Cell Distribution Width 15.8 % (11.6-14.8) H Platelet Count 313 K/UL (150-450) Mean Platelet Volume 7.1 FL (6.5-10.1) Neutrophils (%) (Auto) % (45.0-75.0) Lymphocytes (%) (Auto) % (20.0-45.0) Monocytes (%) (Auto) % (1.0-10.0) Eosinophils (%) (Auto) % (0.0-3.0) Basophils (%) (Auto) % (0.0-2.0) Differential Total Cells Counted 100 Neutrophils % (Manual) 82 % (45-75) H Lymphocytes % (Manual) 9 % (20-45) L Monocytes % (Manual) 4 % (1-10) Eosinophils % (Manual) 3 % (0-3) Basophils % (Manual) 0 % (0-2) Band Neutrophils 2 % (0-8) Platelet Estimate Adequate Platelet Morphology Normal Anisocytosis 1+ Sodium Level 143 MMOL/L (136-145) Potassium Level 3.6 MMOL/L (3.5-5.1) Chloride Level 108 MMOL/L (98-107) H Carbon Dioxide Level 23 MMOL/L (21-32) Anion Gap 12 mmol/L (5-15) Blood Urea Nitrogen 34 mg/dL (7-18) H Creatinine 1.3 MG/DL (0.55-1.30) Estimat Glomerular Filtration Rate mL/min (>60) Glucose Level 314 MG/DL (74-106) H Calcium Level 8.9 MG/DL (8.5-10.1) Plan Problems: (1) Sacral decubitus ulcer, stage II Assessment & Plan: Stage II sacral decubitus ulcer - clean, no signs of active infection. -Keep off wound, turn q2h, air mattress, foam dressing and skin protectant Left leg, foot, and heel wounds - clean, no signs of active infection -keep off wounds, foam dressings and skin protectant. no need for debridement at this time. Right foot/leg with multiple wounds. down to bone and muscle. likely osteo. appreciate dpm input. -cont with dressings at this time. await bone scan. will discuss amputation with family. wounds present upon admission and will be cared for while patient in hospital. thank you for this consultation. will follow with recs. Jaden Nicholson Mar 13, 2018 12:25
[2018-03-13] MEDS: Vancomycin 1gm/D5W 275ml IVPB SCH ×2 (12:38)
--- NOTE | 2018-03-13 12:45 | General Progress Note ---
Assessment/Plan Assessment/Plan encephalopathy seroquel prn d/w family Subjective Date patient seen: Mar 13, 2018 Neurologic/Psychiatric: Reports: anxiety, depressed, emotional problems Allergies: Coded Allergies: No Known Allergies (Verified , 05/12/08) Subjective the pt is calm confused Objective Last 24 Hour Vital Signs Date Time Temp Pulse Resp B/P (MAP) Pulse Ox O2 Delivery O2 Flow Rate FiO2 03/13/18 08:04 Nasal Cannula 2.0 28 03/13/18 08:04 97 Nasal Cannula 2.0 28 03/13/18 08:04 81 18 Nasal Cannula 2.0 28 03/13/18 08:00 97.1 93 20 110/50 100 Nasal Cannula 2.0 97.1 03/13/18 04:00 97.4 88 20 121/71 100 Nasal Cannula 2.0 97.4 03/13/18 00:00 98.0 89 20 107/59 100 Nasal Cannula 2.0 98.0 03/12/18 20:00 82 18 Nasal Cannula 2.0 28 03/12/18 20:00 Nasal Cannula 2.0 28 03/12/18 20:00 97.6 97 21 110/66 95 Nasal Cannula 2.0 97.6 03/12/18 20:00 98 Nasal Cannula 2.0 28 03/12/18 16:00 97.8 86 17 137/82 98 Nasal Cannula 2.0 97.8 Intake and Output 03/12/18 03/13/18 19:00 07:00 Intake Total 1255.000 ml 1980.0 ml Output Total 800 ml Balance 455.000 ml 1980.0 ml Free Water 150 ml 250 ml IV Total 565.000 ml 1235.0 ml Tube Feeding 540 ml 495 ml Output Urine Total 800 ml # Bowel Movements 3 Laboratory Tests 03/13/18 07:01: White Blood Count 13.1H, Red Blood Count 3.12L, Hemoglobin 8.8L, Hematocrit 27.7L, Mean Corpuscular Volume 89, Mean Corpuscular Hemoglobin 28.3, Mean Corpuscular Hemoglobin Concent 31.9L, Red Cell Distribution Width 15.8H, Platelet Count 313, Mean Platelet Volume 7.1, Neutrophils (%) (Auto) , Lymphocytes (%) (Auto) , Monocytes (%) (Auto) , Eosinophils (%) (Auto) , Basophils (%) (Auto) , Differential Total Cells Counted 100, Neutrophils % ( Manual) 82H, Lymphocytes % (Manual) 9L, Monocytes % (Manual) 4, Eosinophils % ( Manual) 3, Basophils % (Manual) 0, Band Neutrophils 2, Platelet Estimate Adequate, Platelet Morphology Normal, Anisocytosis 1+, Sodium Level 143, Potassium Level 3.6, Chloride Level 108H, Carbon Dioxide Level 23, Anion Gap 12 , Blood Urea Nitrogen 34H, Creatinine 1.3, Estimat Glomerular Filtration Rate , Glucose Level 314H, Calcium Level 8.9 Height (Feet): 5 Height (Inches): 8.00 Weight (Pounds): 151 General Appearance: no apparent distress, alert, confused Mamie Oliveria M.D. Mar 13, 2018 12:45
--- NOTE | 2018-03-13 12:49 | Pulmonology Progress Note ---
Assessment/Plan Problems: (1) Healthcare associated bacterial pneumonia (2) Acute encephalopathy (3) Severe sepsis (4) Feeding by G-tube (5) Hyperglycemia due to type 2 diabetes mellitus (6) Protein-calorie malnutrition, severe (7) Limited mobility in bed (8) History of CVA (cerebrovascular accident) Assessment/Plan check electrolytes iv abx check cultures, urine has GNR tolerating feeding Gtube site care DNR is appropriate dvt prophylaxis Subjective ROS Limited/Unobtainable: No Constitutional: Reports: no symptoms HEENT: Repors: no symptoms Respiratory: Reports: no symptoms Allergies: Coded Allergies: No Known Allergies (Verified , 05/12/08) Objective Last 24 Hour Vital Signs Date Time Temp Pulse Resp B/P (MAP) Pulse Ox O2 Delivery O2 Flow Rate FiO2 03/13/18 08:04 Nasal Cannula 2.0 28 03/13/18 08:04 97 Nasal Cannula 2.0 28 03/13/18 08:04 81 18 Nasal Cannula 2.0 28 03/13/18 08:00 97.1 93 20 110/50 100 Nasal Cannula 2.0 97.1 03/13/18 04:00 97.4 88 20 121/71 100 Nasal Cannula 2.0 97.4 03/13/18 00:00 98.0 89 20 107/59 100 Nasal Cannula 2.0 98.0 03/12/18 20:00 82 18 Nasal Cannula 2.0 28 03/12/18 20:00 Nasal Cannula 2.0 28 03/12/18 20:00 97.6 97 21 110/66 95 Nasal Cannula 2.0 97.6 03/12/18 20:00 98 Nasal Cannula 2.0 28 03/12/18 16:00 97.8 86 17 137/82 98 Nasal Cannula 2.0 97.8 Intake and Output 03/12/18 03/13/18 19:00 07:00 Intake Total 1255.000 ml 1980.0 ml Output Total 800 ml Balance 455.000 ml 1980.0 ml Free Water 150 ml 250 ml IV Total 565.000 ml 1235.0 ml Tube Feeding 540 ml 495 ml Output Urine Total 800 ml # Bowel Movements 3 General Appearance: WD/WN, cachetic HEENT: normocephalic, atraumatic Respiratory/Chest: chest wall non-tender, lungs clear Cardiovascular: normal peripheral pulses, normal rate Abdomen: normal bowel sounds, soft, non tender Genitourinary: normal external genitalia Microbiology Date/Time Source Procedure Growth Status 03/10/18 16:25 Blood Blood Culture - Preliminary NO GROWTH AFTER 48 HOURS Resulted 03/10/18 16:10 Blood Blood Culture - Preliminary NO GROWTH AFTER 48 HOURS Resulted 03/12/18 17:00 Sputum Induced Gram Stain Pending Resulted 03/12/18 17:00 Sputum Culture - Preliminary Gram Negative Bacillus 1 Resulted Laboratory Tests 03/13/18 07:01: White Blood Count 13.1H, Red Blood Count 3.12L, Hemoglobin 8.8L, Hematocrit 27.7L, Mean Corpuscular Volume 89, Mean Corpuscular Hemoglobin 28.3, Mean Corpuscular Hemoglobin Concent 31.9L, Red Cell Distribution Width 15.8H, Platelet Count 313, Mean Platelet Volume 7.1, Neutrophils (%) (Auto) , Lymphocytes (%) (Auto) , Monocytes (%) (Auto) , Eosinophils (%) (Auto) , Basophils (%) (Auto) , Differential Total Cells Counted 100, Neutrophils % ( Manual) 82H, Lymphocytes % (Manual) 9L, Monocytes % (Manual) 4, Eosinophils % ( Manual) 3, Basophils % (Manual) 0, Band Neutrophils 2, Platelet Estimate Adequate, Platelet Morphology Normal, Anisocytosis 1+, Sodium Level 143, Potassium Level 3.6, Chloride Level 108H, Carbon Dioxide Level 23, Anion Gap 12 , Blood Urea Nitrogen 34H, Creatinine 1.3, Estimat Glomerular Filtration Rate , Glucose Level 314H, Calcium Level 8.9 Current Medications Medications (Trade) Dose Ordered Sig/Evelio Route PRN Reason Start Time Stop Time Status Last Admin Dose Admin Acetaminophen (Tylenol) 325 mg Q4H PRN ORAL Mild Pain (Pain Scale 1-3) 03/09/18 07:30 04/08/18 07:29 Acetaminophen (Tylenol) 650 mg Q6H PRN ORAL T>100.5 03/09/18 06:45 04/08/18 06:44 03/10/18 21:48 Bisacodyl (Dulcolax) 10 mg HSPRN PRN RECTAL Constipation 03/09/18 06:45 04/08/18 06:44 Dextrose 1,000 ml @ 125 mls/hr Q8H IV 03/11/18 14:45 04/10/18 14:44 03/13/18 06:07 Dextrose (Dextrose 50%) 25 ml STAT PRN IV Hypoglycemia 03/09/18 08:00 04/08/18 07:59 Dextrose (Dextrose 50%) 50 ml STAT PRN IV Hypoglycemia 03/09/18 08:00 04/08/18 07:59 Docusate Sodium (Colace) 100 mg Q12H PRN GT Constipation 03/09/18 06:45 04/08/18 06:44 Docusate Sodium (Colace) 100 mg Q12HR GT 03/09/18 09:00 04/08/18 08:59 03/13/18 08:12 Folic Acid (Folate) 1 mg DAILY GT 03/09/18 09:00 04/08/18 08:59 03/13/18 08:12 Heparin Sodium (Porcine) (Heparin 5000 units/ml) 5,000 units EVERY 12 HOURS SUBQ 03/09/18 09:00 04/08/18 08:59 03/13/18 08:14 Insulin Aspart (NovoLOG) BEFORE MEALS AND HS SUBQ 03/09/18 11:30 04/08/18 11:29 03/13/18 12:13 Ipratropium [place] (Atrovent) 500 mcg Q4H PRN HHN Shortness of Breath 03/09/18 06:45 03/14/18 06:44 Ondansetron HCl (Zofran) 4 mg Q6H PRN IVP Nausea & Vomiting 03/09/18 07:30 04/08/18 07:29 Piperacillin Sod/ Tazobactam Sod 3.375 gm/Dextrose 110 ml @ 27.5 mls/hr EVERY 8 HOURS IVPB 03/09/18 14:00 03/14/18 13:59 03/13/18 06:06 Polyethylene Glycol (Miralax) 17 gm HSPRN PRN ORAL Constipation 03/09/18 21:00 04/08/18 20:59 Quetiapine Fumarate (SEROquel) 12.5 mg EVERY 6 HOURS PRN ORAL For Anxiety 03/12/18 00:15 04/11/18 00:14 Sitagliptin Phosphate (Januvia) 25 mg DAILY GT 03/09/18 09:00 04/08/18 08:59 03/13/18 08:12 Vancomycin HCl (Vanco rx to dose) 1 ea DAILY PRN MISC Per rx protocol 03/09/18 06:45 04/08/18 06:44 Vancomycin HCl 1 gm/Dextrose 275 ml @ 183.708 mls/hr Q24H IVPB 03/12/18 12:00 03/17/18 11:59 03/13/18 12:38 Neil Goldstein MD Mar 13, 2018 12:49
--- NOTE | 2018-03-13 14:41 | Infectious Diseases Prog Note ---
Assessment/Plan Assessment/Plan Abx: IV Vanco /- Zosyn 03/09- Cefepime x1 03/09 Levo x1 03/09 Assessment: SEpsis, impoving - likely 2ry to PNA, possible PsA UTI, bacteremia (likely contaminant)-f, -CXR 03/12: Unchanged bilateral perihilar infiltrates and left perihilar atelectasis, over 3 days -CXR: Bibasilar atelectasis versus developing infiltrate. 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 Will continue to follow along with you. Discussed with RN. Subjective Allergies: Coded Allergies: No Known Allergies (Verified , 05/12/08) Subjective afebrile in >36hrs lekocytosis overall improved repeat bcx NTD at 2l NC Objective Vital Signs Last 24 Hour Vital Signs Date Time Temp Pulse Resp B/P (MAP) Pulse Ox O2 Delivery O2 Flow Rate FiO2 03/13/18 12:00 97.6 89 20 102/57 100 Nasal Cannula 2.0 97.6 03/13/18 08:04 Nasal Cannula 2.0 28 03/13/18 08:04 97 Nasal Cannula 2.0 28 03/13/18 08:04 81 18 Nasal Cannula 2.0 28 03/13/18 08:00 97.1 93 20 110/50 100 Nasal Cannula 2.0 97.1 03/13/18 04:00 97.4 88 20 121/71 100 Nasal Cannula 2.0 97.4 03/13/18 00:00 98.0 89 20 107/59 100 Nasal Cannula 2.0 98.0 03/12/18 20:00 82 18 Nasal Cannula 2.0 28 03/12/18 20:00 Nasal Cannula 2.0 28 03/12/18 20:00 97.6 97 21 110/66 95 Nasal Cannula 2.0 97.6 03/12/18 20:00 98 Nasal Cannula 2.0 28 03/12/18 16:00 97.8 86 17 137/82 98 Nasal Cannula 2.0 97.8 Height (Feet): 5 Height (Inches): 8.00 Weight (Pounds): 151 Objective General Appearance: moderate distress, lethargic, Stupor Head: normocephalic, atraumatic Eyes: bilateral eye PERRL, bilateral eye EOMI ENT: dry mucus membranes - very dry Neck: full range of motion, supple, no meningismus Respiratory: chest non-tender, respiratory distress, decreased breath sounds, accessory muscle use, rhonchi, wheezing Cardiovascular #1: regular rate, rhythm, no murmur, tachycardia Gastrointestinal: normal bowel sounds, non tender, no mass, no organomegaly, no bruit, non-distended Musculoskeletal: back normal, other - contracted. Ulcer to heels and sacrum Neurologic: grossly normal Skin: warm/dry Microbiology Date/Time Source Procedure Growth Status 03/10/18 16:25 Blood Blood Culture - Preliminary NO GROWTH AFTER 48 HOURS Resulted 03/10/18 16:10 Blood Blood Culture - Preliminary NO GROWTH AFTER 48 HOURS Resulted 03/12/18 17:00 Sputum Induced Gram Stain - Final Resulted 03/12/18 17:00 Sputum Culture - Preliminary Gram Negative Bacillus 1 Resulted Laboratory Tests Test 03/13/18 07:01 White Blood Count 13.1 K/UL (4.8-10.8) H Red Blood Count 3.12 M/UL (4.70-6.10) L Hemoglobin 8.8 G/DL (14.2-18.0) L Hematocrit 27.7 % (42.0-52.0) L Mean Corpuscular Volume 89 FL (80-99) Mean Corpuscular Hemoglobin 28.3 PG (27.0-31.0) Mean Corpuscular Hemoglobin Concent 31.9 G/DL (32.0-36.0) L Red Cell Distribution Width 15.8 % (11.6-14.8) H Platelet Count 313 K/UL (150-450) Mean Platelet Volume 7.1 FL (6.5-10.1) Neutrophils (%) (Auto) % (45.0-75.0) Lymphocytes (%) (Auto) % (20.0-45.0) Monocytes (%) (Auto) % (1.0-10.0) Eosinophils (%) (Auto) % (0.0-3.0) Basophils (%) (Auto) % (0.0-2.0) Differential Total Cells Counted 100 Neutrophils % (Manual) 82 % (45-75) H Lymphocytes % (Manual) 9 % (20-45) L Monocytes % (Manual) 4 % (1-10) Eosinophils % (Manual) 3 % (0-3) Basophils % (Manual) 0 % (0-2) Band Neutrophils 2 % (0-8) Platelet Estimate Adequate Platelet Morphology Normal Anisocytosis 1+ Sodium Level 143 MMOL/L (136-145) Potassium Level 3.6 MMOL/L (3.5-5.1) Chloride Level 108 MMOL/L (98-107) H Carbon Dioxide Level 23 MMOL/L (21-32) Anion Gap 12 mmol/L (5-15) Blood Urea Nitrogen 34 mg/dL (7-18) H Creatinine 1.3 MG/DL (0.55-1.30) Estimat Glomerular Filtration Rate mL/min (>60) Glucose Level 314 MG/DL (74-106) H Calcium Level 8.9 MG/DL (8.5-10.1) Current Medications Medications (Trade) Dose Ordered Sig/Evelio Route PRN Reason Start Time Stop Time Status Last Admin Dose Admin Acetaminophen (Tylenol) 325 mg Q4H PRN ORAL Mild Pain (Pain Scale 1-3) 03/09/18 07:30 04/08/18 07:29 Acetaminophen (Tylenol) 650 mg Q6H PRN ORAL T>100.5 03/09/18 06:45 04/08/18 06:44 03/10/18 21:48 Bisacodyl (Dulcolax) 10 mg HSPRN PRN RECTAL Constipation 03/09/18 06:45 04/08/18 06:44 Dextrose 1,000 ml @ 125 mls/hr Q8H IV 03/11/18 14:45 04/10/18 14:44 03/13/18 06:07 Dextrose (Dextrose 50%) 25 ml STAT PRN IV Hypoglycemia 03/09/18 08:00 04/08/18 07:59 Dextrose (Dextrose 50%) 50 ml STAT PRN IV Hypoglycemia 03/09/18 08:00 04/08/18 07:59 Docusate Sodium (Colace) 100 mg Q12H PRN GT Constipation 03/09/18 06:45 04/08/18 06:44 Docusate Sodium (Colace) 100 mg Q12HR GT 03/09/18 09:00 04/08/18 08:59 03/13/18 08:12 Folic Acid (Folate) 1 mg DAILY GT 03/09/18 09:00 04/08/18 08:59 03/13/18 08:12 Heparin Sodium (Porcine) (Heparin 5000 units/ml) 5,000 units EVERY 12 HOURS SUBQ 03/09/18 09:00 04/08/18 08:59 03/13/18 08:14 Insulin Aspart (NovoLOG) BEFORE MEALS AND HS SUBQ 03/09/18 11:30 04/08/18 11:29 03/13/18 12:13 Ipratropium Marathon (Atrovent) 500 mcg Q4H PRN HHN Shortness of Breath 03/09/18 06:45 03/14/18 06:44 Ondansetron HCl (Zofran) 4 mg Q6H PRN IVP Nausea & Vomiting 03/09/18 07:30 04/08/18 07:29 Piperacillin Sod/ Tazobactam Sod 3.375 gm/Dextrose 110 ml @ 27.5 mls/hr EVERY 8 HOURS IVPB 03/09/18 14:00 03/19/18 13:59 03/13/18 06:06 Polyethylene Glycol (Miralax) 17 gm HSPRN PRN ORAL Constipation 03/09/18 21:00 04/08/18 20:59 Quetiapine Fumarate (SEROquel) 12.5 mg EVERY 6 HOURS PRN ORAL For Anxiety 03/12/18 00:15 04/11/18 00:14 Sitagliptin Phosphate (Januvia) 25 mg DAILY GT 03/09/18 09:00 04/08/18 08:59 03/13/18 08:12 Vancomycin HCl (Vanco rx to dose) 1 ea DAILY PRN MISC Per rx protocol 03/09/18 06:45 04/08/18 06:44 Vancomycin HCl 1 gm/Dextrose 275 ml @ 183.708 mls/hr Q24H IVPB 03/12/18 12:00 03/17/18 11:59 03/13/18 12:38 Baylee Mederos M.D. Mar 13, 2018 14:41
[2018-03-13 16:00] VITALS: BP 132/69
--- NOTE | 2018-03-13 17:27 | Diagnostic Imaging Report ---
Indication: Multiple right lower extremity wounds Technique: IV administration 25.6 mCi 99 M technetium MDP. Flow, blood pool, and static images obtained over the bilateral lower extremities. Comparison: No plain radiographs are available for correlation Findings: Flow images demonstrate diffuse hyperemia to the right lower extremity, more focal a increased activity in the region of the posterolateral ankle and first metatarsophalangeal joint. Blood pool images demonstrate less striking diffuse hyperemia, but increased activity in the region of the posterior ankle and of the first metatarsal phalangeal joint. There is equivocal slight increased activity in the lateral forefoot on the post anterior blood pool images but not confirmed on the anterior Static images demonstrate increased activity in the region of the calcaneal tuberosity, the distal fibula, the first metatarsal phalangeal joint, and in the region of the fifth tarsometatarsal joint and metatarsophalangeal joint. No significant increased activity is seen on the left. Impression: Abnormal flow, blood pool, and static activity in the region of the right calcaneal tuberosity, distal fibula and first metatarsal joint. Combination of findings is suspicious for acute osteomyelitis of both these locations. Correlation with plain radiographs is recommended Increased activity in the lateral mid and forefoot on the right, with only equivocal blood pool abnormality. This could represent osteomyelitis, but could also represent posttraumatic or degenerative changes. Correlation with plain radiographs is recommended. No significant abnormality of the distal left lower extremity Findings discussed by phone with Dr. Kelsey at the time of interpretation
[2018-03-13 20:00] VITALS: BP 115/58
[2018-03-14] VITALS: BP 98/61
--- NOTE | 2018-03-14 02:00 | Consultation ---
DATE OF CONSULTATION: 03/13/2018 CONSULTING PHYSICIAN: Sergio Vigil M.D. REFERRING PHYSICIAN: Esteban Yu M.D. REASON FOR EVALUATION: Evaluation of suprapubic tube. HISTORY OF PRESENT ILLNESS: This is an unfortunate 87-year-old male. He was admitted to the hospital originally because of fever, shortness of breath, and altered mental status. The patient has a history of BPH, urinary retention, and neurogenic bladder. He has a history of chronic suprapubic tube. Apparently, had an indwelling Duffy catheter also that was placed at a senior care. Some urine leakage was noted. Urology evaluation was requested. Most of the history was obtained from the chart. PAST MEDICAL HISTORY: Significant for above, also history of hypertension, diabetes, COPD, hyperlipidemia, and peripheral vascular disease. PAST SURGICAL HISTORY: He has had a suprapubic tube and PEG placement. Other surgeries are unknown. MEDICATIONS: Current medications here in the hospital, the patient is on vancomycin, Seroquel, MiraLAX, Zosyn, insulin, heparin, Januvia, Colace, dextrose, Zofran, Tylenol, Atrovent, and Dulcolax. ALLERGIES: No known drug allergies. SOCIAL HISTORY: The patient is a resident of senior care. FAMILY HISTORY: Unknown. REVIEW OF SYSTEMS: Unable to obtain. PHYSICAL EXAMINATION: GENERAL: An elderly male, nonverbal. VITAL SIGNS: Temperature is 98 degrees, blood pressure is 132/69, pulse is 95, and respirations are 19. HEENT: Normocephalic. NECK: Supple. ABDOMEN: Soft. G-tube is in place. GENITOURINARY: There is a suprapubic tube in place, it is a 12-Bengali. There is a Duffy catheter in place, which is 16-Bengali. Urine is yellowish, some cloudiness, is slightly contracted. LABORATORY AND DIAGNOSTIC DATA: UA showed 3+ protein, 5-10 rbc's, 20 to 30 wbc's. White count is 13.1, hemoglobin 8.8, and platelets are 313. BUN is 34, creatinine 1.3, and potassium 3.6. His urine culture from 03/09/2018 showed Pseudomonas. Diagnostic imaging studies, the patient does not have any renal imaging studies here. He did have a bone scan and this was reviewed. IMPRESSION: 1. Urinary retention. 2. Benign prostatic hypertrophy. 3. Neurogenic bladder. 4. Urinary tract infection and colonization. 5. Hematuria. 6. Proteinuria. PLAN AND DISCUSSION: I evaluated the patient at the bedside. The existing 12-Bengali Duffy catheter was clamped. When I examined him and I did try irrigating it. There was some resistance noted and looking through the chart, apparently, he is due for a suprapubic change. As such, I removed the 12-Bengali suprapubic tube and I increased it to one size to 14-Bengali and was in good position and irrigated well. At this time, he has a Duffy catheter in place also and I irrigated that and it is in good position. We will monitor for now. Keep the new suprapubic tube clamped and opening up after it is ready for removal of the Duffy. At some point, he may need to have cystoscopy for further evaluation and we will also consider renal imaging study. Thank you, Dr. Yu, for asking me to participate in this consultation. Sergio Vigil M.D. DR: COLLINS JOB#: [id number] CC:
[2018-03-14 04:00] VITALS: BP 113/65
[2018-03-14] MEDS: Piperacillin/Tazobactam 3.375 GM in D5W 110 ML IVPB SCH ×3 (05:49→21:21)
[2018-03-14] MEDS: NovoLOG Insulin Flexpen SUBQ SCH ×4 (06:13→21:25)
[2018-03-14 08:00] VITALS: BP 90/65
[2018-03-14] MEDS: Docusate 100mg/10ml Liq GT SCH ×2 (08:47→21:20)
[2018-03-14] MEDS: sitaGLIPtin 25mg tab GT SCH (08:47)
[2018-03-14] MEDS: Heparin 5000 units/ml inj SUBQ SCH ×2 (08:48→21:20)
--- NOTE | 2018-03-14 09:23 | Urology Progress Note ---
Assessment/Plan Assessment/Plan 1. Urinary retention. 2. Benign prostatic hypertrophy. 3. Neurogenic bladder. 4. Urinary tract infection and colonization. 5. Hematuria. 6. Proteinuria. new SP tube placed 03/13 (14f) clamped for now mota also indwelling hand irrigate PRN consider removal of mota soon and open SP to gravity drainage abx as ordered cysto later consider renal imaging study Subjective Allergies: Coded Allergies: No Known Allergies (Verified , 05/12/08) Subjective all noted Objective Last 24 Hour Vital Signs Date Time Temp Pulse Resp B/P (MAP) Pulse Ox O2 Delivery O2 Flow Rate FiO2 03/14/18 08:05 Nasal Cannula 3.0 32 03/14/18 08:05 95 Nasal Cannula 3.0 32 03/14/18 08:05 100 18 Nasal Cannula 3.0 32 03/14/18 08:00 97.7 96 20 90/65 98 Nasal Cannula 2.0 97.7 03/14/18 04:00 97.7 94 20 113/65 98 Nasal Cannula 2.0 97.7 03/14/18 00:00 97.7 91 21 98/61 98 Nasal Cannula 2.0 97.7 03/13/18 20:40 85 18 Nasal Cannula 2.0 28 03/13/18 20:40 98 Nasal Cannula 2.0 28 03/13/18 20:40 Nasal Cannula 2.0 28 03/13/18 20:00 97.4 94 20 115/58 98 Nasal Cannula 2.0 97.4 03/13/18 16:00 98.0 91 19 132/69 95 Nasal Cannula 2.0 98.0 03/13/18 12:00 97.6 89 20 102/57 100 Nasal Cannula 2.0 97.6 Intake and Output 03/13/18 03/14/18 19:00 07:00 Intake Total 2157.500 ml 2077.5 ml Output Total 950 ml 900 ml Balance 1207.500 ml 1177.5 ml Free Water 150 ml 150 ml IV Total 1467.500 ml 1387.5 ml Tube Feeding 540 ml 540 ml Output Urine Total 950 ml 900 ml # Bowel Movements 1 4 Microbiology Date/Time Source Procedure Growth Status 03/10/18 16:25 Blood Blood Culture - Preliminary NO GROWTH AFTER 72 HOURS Resulted 03/12/18 17:00 Sputum Induced Gram Stain - Final Resulted 03/12/18 17:00 Sputum Culture - Preliminary Gram Negative Bacillus 1 Gram Negative Bacillus 2 Resulted 03/09/18 01:42 Urine,Clean Catch Urine Culture - Final Pseudomonas Aeruginosa Complete 03/09/18 07:00 Foot Right Gram Stain - Final Complete 03/09/18 07:00 Wound Culture - Final Staphylococcus Aureus - Mrsa Usual Skin Sharmaine Complete Current Medications Medications (Trade) Dose Ordered Sig/Evelio Route PRN Reason Start Time Stop Time Status Last Admin Dose Admin Acetaminophen (Tylenol) 325 mg Q4H PRN ORAL Mild Pain (Pain Scale 1-3) 03/09/18 07:30 04/08/18 07:29 Acetaminophen (Tylenol) 650 mg Q6H PRN ORAL T>100.5 03/09/18 06:45 04/08/18 06:44 03/10/18 21:48 Bisacodyl (Dulcolax) 10 mg HSPRN PRN RECTAL Constipation 03/09/18 06:45 04/08/18 06:44 Dextrose 1,000 ml @ 125 mls/hr Q8H IV 03/11/18 14:45 04/10/18 14:44 03/14/18 04:03 Dextrose (Dextrose 50%) 25 ml STAT PRN IV Hypoglycemia 03/09/18 08:00 04/08/18 07:59 Dextrose (Dextrose 50%) 50 ml STAT PRN IV Hypoglycemia 03/09/18 08:00 04/08/18 07:59 Docusate Sodium (Colace) 100 mg Q12H PRN GT Constipation 03/09/18 06:45 04/08/18 06:44 Docusate Sodium (Colace) 100 mg Q12HR GT 03/09/18 09:00 04/08/18 08:59 03/14/18 08:47 Folic Acid (Folate) 1 mg DAILY GT 03/09/18 09:00 04/08/18 08:59 03/14/18 08:47 Heparin Sodium (Porcine) (Heparin 5000 units/ml) 5,000 units EVERY 12 HOURS SUBQ 03/09/18 09:00 04/08/18 08:59 03/14/18 08:48 Insulin Aspart (NovoLOG) BEFORE MEALS AND HS SUBQ 03/09/18 11:30 04/08/18 11:29 03/14/18 06:13 Ondansetron HCl (Zofran) 4 mg Q6H PRN IVP Nausea & Vomiting 03/09/18 07:30 04/08/18 07:29 Piperacillin Sod/ Tazobactam Sod 3.375 gm/Dextrose 110 ml @ 27.5 mls/hr EVERY 8 HOURS IVPB 03/09/18 14:00 03/19/18 13:59 03/14/18 05:49 Polyethylene Glycol (Miralax) 17 gm HSPRN PRN ORAL Constipation 03/09/18 21:00 04/08/18 20:59 Quetiapine Fumarate (SEROquel) 12.5 mg EVERY 6 HOURS PRN ORAL For Anxiety 03/12/18 00:15 04/11/18 00:14 Sitagliptin Phosphate (Januvia) 25 mg DAILY GT 03/09/18 09:00 04/08/18 08:59 03/14/18 08:47 Vancomycin HCl (Vanco rx to dose) 1 ea DAILY PRN MISC Per rx protocol 03/09/18 06:45 04/08/18 06:44 Vancomycin HCl 1 gm/Dextrose 275 ml @ 183.708 mls/hr Q24H IVPB 03/12/18 12:00 03/17/18 11:59 03/13/18 12:38 Height (Feet): 5 Height (Inches): 8.00 Weight (Pounds): 151 Objective exam stable TIFFANY SANTIAGO 7, 2018 09:23
--- NOTE | 2018-03-14 10:42 | Diagnostic Imaging Report ---
Indication: Shortness of breath Technique: One view of the chest Comparison: 03/12/2018 Findings: Left perihilar atelectasis or scarring again demonstrated. Previously demonstrated perihilar infiltrates appear partially resolved. No new infiltrates. Pleural spaces remain clear. The heart is upper limits normal in size Impression: Improved bilateral perihilar infiltrates, over 2 days Other findings as noted
--- NOTE | 2018-03-14 11:22 | General Progress Note ---
Assessment/Plan Assessment/Plan encephalopathy seroquel prn d/w family Subjective Date patient seen: Mar 14, 2018 Neurologic/Psychiatric: Reports: anxiety, depressed, emotional problems Allergies: Coded Allergies: No Known Allergies (Verified , 05/12/08) Subjective the pt is calm confused Objective Last 24 Hour Vital Signs Date Time Temp Pulse Resp B/P (MAP) Pulse Ox O2 Delivery O2 Flow Rate FiO2 03/14/18 08:05 Nasal Cannula 3.0 32 03/14/18 08:05 95 Nasal Cannula 3.0 32 03/14/18 08:05 100 18 Nasal Cannula 3.0 32 03/14/18 08:00 97.7 96 20 90/65 98 Nasal Cannula 2.0 97.7 03/14/18 04:00 97.7 94 20 113/65 98 Nasal Cannula 2.0 97.7 03/14/18 00:00 97.7 91 21 98/61 98 Nasal Cannula 2.0 97.7 03/13/18 20:40 85 18 Nasal Cannula 2.0 28 03/13/18 20:40 98 Nasal Cannula 2.0 28 03/13/18 20:40 Nasal Cannula 2.0 28 03/13/18 20:00 97.4 94 20 115/58 98 Nasal Cannula 2.0 97.4 03/13/18 16:00 98.0 91 19 132/69 95 Nasal Cannula 2.0 98.0 03/13/18 12:00 97.6 89 20 102/57 100 Nasal Cannula 2.0 97.6 Intake and Output 03/13/18 03/14/18 19:00 07:00 Intake Total 2157.500 ml 2077.5 ml Output Total 950 ml 900 ml Balance 1207.500 ml 1177.5 ml Free Water 150 ml 150 ml IV Total 1467.500 ml 1387.5 ml Tube Feeding 540 ml 540 ml Output Urine Total 950 ml 900 ml # Bowel Movements 1 4 Height (Feet): 5 Height (Inches): 8.00 Weight (Pounds): 151 Mamie Oliveira M.D. Mar 14, 2018 11:22
--- NOTE | 2018-03-14 11:30 | Pulmonology Progress Note ---
Assessment/Plan Problems: (1) Healthcare associated bacterial pneumonia (2) Acute encephalopathy (3) Severe sepsis (4) Feeding by G-tube (5) Hyperglycemia due to type 2 diabetes mellitus (6) Protein-calorie malnutrition, severe (7) Limited mobility in bed (8) History of CVA (cerebrovascular accident) Assessment/Plan check electrolytes iv abx check cultures, urine has GNR tolerating feeding Gtube site care DNR is appropriate dvt prophylaxis bone scan calcaneal tuberosity, distal fibula and first metatarsal joint suspicious for acute osteomyelitis of both these locations Subjective ROS Limited/Unobtainable: Yes Constitutional: Reports: no symptoms HEENT: Repors: no symptoms Allergies: Coded Allergies: No Known Allergies (Verified , 05/12/08) Objective Last 24 Hour Vital Signs Date Time Temp Pulse Resp B/P (MAP) Pulse Ox O2 Delivery O2 Flow Rate FiO2 03/14/18 08:05 Nasal Cannula 3.0 32 03/14/18 08:05 95 Nasal Cannula 3.0 32 03/14/18 08:05 100 18 Nasal Cannula 3.0 32 03/14/18 08:00 97.7 96 20 90/65 98 Nasal Cannula 2.0 97.7 03/14/18 04:00 97.7 94 20 113/65 98 Nasal Cannula 2.0 97.7 03/14/18 00:00 97.7 91 21 98/61 98 Nasal Cannula 2.0 97.7 03/13/18 20:40 85 18 Nasal Cannula 2.0 28 03/13/18 20:40 98 Nasal Cannula 2.0 28 03/13/18 20:40 Nasal Cannula 2.0 28 03/13/18 20:00 97.4 94 20 115/58 98 Nasal Cannula 2.0 97.4 03/13/18 16:00 98.0 91 19 132/69 95 Nasal Cannula 2.0 98.0 03/13/18 12:00 97.6 89 20 102/57 100 Nasal Cannula 2.0 97.6 Intake and Output 03/13/18 03/14/18 19:00 07:00 Intake Total 2157.500 ml 2077.5 ml Output Total 950 ml 900 ml Balance 1207.500 ml 1177.5 ml Free Water 150 ml 150 ml IV Total 1467.500 ml 1387.5 ml Tube Feeding 540 ml 540 ml Output Urine Total 950 ml 900 ml # Bowel Movements 1 4 General Appearance: WD/WN HEENT: normocephalic, atraumatic Respiratory/Chest: chest wall non-tender, lungs clear Cardiovascular: normal peripheral pulses, normal rate Abdomen: normal bowel sounds, soft, non tender Genitourinary: normal external genitalia Extremities: no clubbing Skin: no ulcers Microbiology Date/Time Source Procedure Growth Status 03/12/18 17:00 Sputum Induced Gram Stain - Final Resulted 03/12/18 17:00 Sputum Culture - Preliminary Gram Negative Bacillus 1 Gram Negative Bacillus 2 Resulted Current Medications Medications (Trade) Dose Ordered Sig/Evelio Route PRN Reason Start Time Stop Time Status Last Admin Dose Admin Acetaminophen (Tylenol) 325 mg Q4H PRN ORAL Mild Pain (Pain Scale 1-3) 03/09/18 07:30 04/08/18 07:29 Acetaminophen (Tylenol) 650 mg Q6H PRN ORAL T>100.5 03/09/18 06:45 04/08/18 06:44 03/10/18 21:48 Bisacodyl (Dulcolax) 10 mg HSPRN PRN RECTAL Constipation 03/09/18 06:45 04/08/18 06:44 Dextrose 1,000 ml @ 125 mls/hr Q8H IV 03/11/18 14:45 04/10/18 14:44 03/14/18 04:03 Dextrose (Dextrose 50%) 25 ml STAT PRN IV Hypoglycemia 03/09/18 08:00 04/08/18 07:59 Dextrose (Dextrose 50%) 50 ml STAT PRN IV Hypoglycemia 03/09/18 08:00 04/08/18 07:59 Docusate Sodium (Colace) 100 mg Q12H PRN GT Constipation 03/09/18 06:45 04/08/18 06:44 Docusate Sodium (Colace) 100 mg Q12HR GT 03/09/18 09:00 04/08/18 08:59 03/14/18 08:47 Folic Acid (Folate) 1 mg DAILY GT 03/09/18 09:00 04/08/18 08:59 03/14/18 08:47 Heparin Sodium (Porcine) (Heparin 5000 units/ml) 5,000 units EVERY 12 HOURS SUBQ 03/09/18 09:00 04/08/18 08:59 03/14/18 08:48 Insulin Aspart (NovoLOG) BEFORE MEALS AND HS SUBQ 03/09/18 11:30 04/08/18 11:29 03/14/18 06:13 Ondansetron HCl (Zofran) 4 mg Q6H PRN IVP Nausea & Vomiting 03/09/18 07:30 04/08/18 07:29 Piperacillin Sod/ Tazobactam Sod 3.375 gm/Dextrose 110 ml @ 27.5 mls/hr EVERY 8 HOURS IVPB 03/09/18 14:00 03/19/18 13:59 03/14/18 05:49 Polyethylene Glycol (Miralax) 17 gm HSPRN PRN ORAL Constipation 03/09/18 21:00 04/08/18 20:59 Quetiapine Fumarate (SEROquel) 12.5 mg EVERY 6 HOURS PRN ORAL For Anxiety 03/12/18 00:15 04/11/18 00:14 Sitagliptin Phosphate (Januvia) 25 mg DAILY GT 03/09/18 09:00 04/08/18 08:59 03/14/18 08:47 Vancomycin HCl (Vanco rx to dose) 1 ea DAILY PRN MISC Per rx protocol 03/09/18 06:45 04/08/18 06:44 Vancomycin HCl 1 gm/Dextrose 275 ml @ 183.708 mls/hr Q24H IVPB 03/12/18 12:00 03/17/18 11:59 03/13/18 12:38 Neil Goldstein MD Mar 14, 2018 11:30
[2018-03-14 12:00] VITALS: BP 94/56
[2018-03-14] MEDS: Vancomycin 1gm/D5W 275ml IVPB SCH ×2 (12:44)
--- NOTE | 2018-03-14 14:39 | General Surgery Progress Note ---
General Surgery-Progress Note Subjective Additional Comments no acute events. NM bone scan obtained. likely osteo Objective Last 24 Hour Vital Signs Date Time Temp Pulse Resp B/P (MAP) Pulse Ox O2 Delivery O2 Flow Rate FiO2 03/14/18 12:00 97.3 83 20 94/56 98 Nasal Cannula 2.0 97.3 03/14/18 08:05 Nasal Cannula 3.0 32 03/14/18 08:05 95 Nasal Cannula 3.0 32 03/14/18 08:05 100 18 Nasal Cannula 3.0 32 03/14/18 08:00 97.7 96 20 90/65 98 Nasal Cannula 2.0 97.7 03/14/18 04:00 97.7 94 20 113/65 98 Nasal Cannula 2.0 97.7 03/14/18 00:00 97.7 91 21 98/61 98 Nasal Cannula 2.0 97.7 03/13/18 20:40 85 18 Nasal Cannula 2.0 28 03/13/18 20:40 98 Nasal Cannula 2.0 28 03/13/18 20:40 Nasal Cannula 2.0 28 03/13/18 20:00 97.4 94 20 115/58 98 Nasal Cannula 2.0 97.4 03/13/18 16:00 98.0 91 19 132/69 95 Nasal Cannula 2.0 98.0 I&O Intake and Output 03/13/18 03/14/18 19:00 07:00 Intake Total 2157.500 ml 2077.5 ml Output Total 950 ml 900 ml Balance 1207.500 ml 1177.5 ml Free Water 150 ml 150 ml IV Total 1467.500 ml 1387.5 ml Tube Feeding 540 ml 540 ml Output Urine Total 950 ml 900 ml # Bowel Movements 1 4 Dressing: saturated Wound: other - open wounds to right foot with serous drainage down to bone and muscle. Cardiovascular: RSR Respiratory: clear Abdomen: soft, flat Extremities: edema, tenderness, cyanosis Laboratory Tests Test 03/14/18 11:33 Vancomycin Level Trough 16.7 ug/mL (5.0-12.0) H Plan Problems: (1) Sacral decubitus ulcer, stage II Assessment & Plan: Stage II sacral decubitus ulcer - clean, no signs of active infection. -Keep off wound, turn q2h, air mattress, foam dressing and skin protectant Left leg, foot, and heel wounds - clean, no signs of active infection -keep off wounds, foam dressings and skin protectant. no need for debridement at this time. Right foot/leg with multiple wounds. down to bone and muscle. likely osteo. appreciate dpm input. -cont with dressings at this time. bone scan likely osteo Spoke with family (son) and discussed care. discussed physical exam and radiological findings. after long discussion, son stated he spoke with mother and they have decided against surgery and would prefer non invasive medical treatment at this time. they are moving towards comfort care for patient given his poor prognosis and worsening medical condition. wounds present upon admission and will be cared for while patient in hospital. thank you for this consultation. will follow with recs. Jaden Nicholson Mar 14, 2018 14:39
--- NOTE | 2018-03-14 15:48 | Infectious Diseases Prog Note ---
Assessment/Plan Assessment/Plan Abx: IV Vanco 6/- Zosyn /- Cefepime x1 / Levo x1 / Assessment: SEpsis, impoving - likely 2ry to PNA, possible PsA UTI, bacteremia (likely contaminant) -CXR 03/14: Improved bilateral perihilar infiltrates, over 2 days -CXR 03/12: Unchanged bilateral perihilar infiltrates and left perihilar atelectasis, over 3 days -CXR: Bibasilar atelectasis versus developing infiltrate. -u/a wbc 20-30, nit neg, leuk +3; ucx >100K PsA (nixon S) -03/09 Bcx / Staph epi; 03/10 Bcx NTD -sp cx GNR #1, #2 -influenza sc neg Fever/Leukocytosis, improving Sacral decubitus ulcer- no signs of infection -sacral wound cx: MDR ABC, MRSA, E.fecailis, ESBL E.coli (Colonizers) B/l foot pressure ulcer- no signs of acute infection infection- possible OM per bone scan -bone scan: Abnormal flow, blood pool, and static activity in the region of the right calcaneal tuberosity, distal fibula and first metatarsal joint. Combination of findings is suspicious for acute osteomyelitis of both these locations. Increased activity in the lateral mid and forefoot on the right, with only equivocal blood pool abnormality. This could represent osteomyelitis, but could also represent posttraumatic or degenerative changes. 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 Will continue to follow along with you. Discussed with RN and Dr Nicholson. Subjective Allergies: Coded Allergies: No Known Allergies (Verified , 05/12/08) Subjective afebrile in >72hrs lekocytosis overall improved; no cbc today repeat bcx NTD at 2l NC famly refused amputation Objective Vital Signs Last 24 Hour Vital Signs Date Time Temp Pulse Resp B/P (MAP) Pulse Ox O2 Delivery O2 Flow Rate FiO2 03/14/18 12:00 97.3 83 20 94/56 98 Nasal Cannula 2.0 97.3 03/14/18 08:05 Nasal Cannula 3.0 32 03/14/18 08:05 95 Nasal Cannula 3.0 32 03/14/18 08:05 100 18 Nasal Cannula 3.0 32 03/14/18 08:00 97.7 96 20 90/65 98 Nasal Cannula 2.0 97.7 03/14/18 04:00 97.7 94 20 113/65 98 Nasal Cannula 2.0 97.7 03/14/18 00:00 97.7 91 21 98/61 98 Nasal Cannula 2.0 97.7 03/13/18 20:40 85 18 Nasal Cannula 2.0 28 03/13/18 20:40 98 Nasal Cannula 2.0 28 03/13/18 20:40 Nasal Cannula 2.0 28 03/13/18 20:00 97.4 94 20 115/58 98 Nasal Cannula 2.0 97.4 03/13/18 16:00 98.0 91 19 132/69 95 Nasal Cannula 2.0 98.0 Height (Feet): 5 Height (Inches): 8.00 Weight (Pounds): 151 Objective General Appearance: moderate distress, lethargic, Stupor Head: normocephalic, atraumatic Eyes: bilateral eye PERRL, bilateral eye EOMI ENT: dry mucus membranes - very dry Neck: full range of motion, supple, no meningismus Respiratory: chest non-tender, respiratory distress, decreased breath sounds, accessory muscle use, rhonchi, wheezing Cardiovascular #1: regular rate, rhythm, no murmur, tachycardia Gastrointestinal: normal bowel sounds, non tender, no mass, no organomegaly, no bruit, non-distended Musculoskeletal: back normal, other - contracted. Ulcer to heels and sacrum Neurologic: grossly normal Skin: warm/dry Microbiology Date/Time Source Procedure Growth Status 03/12/18 17:00 Sputum Induced Gram Stain - Final Resulted 03/12/18 17:00 Sputum Culture - Preliminary Gram Negative Bacillus 1 Gram Negative Bacillus 2 Resulted Laboratory Tests Test 03/14/18 11:33 Vancomycin Level Trough 16.7 ug/mL (5.0-12.0) H Current Medications Medications (Trade) Dose Ordered Sig/Evelio Route PRN Reason Start Time Stop Time Status Last Admin Dose Admin Acetaminophen (Tylenol) 325 mg Q4H PRN ORAL Mild Pain (Pain Scale 1-3) 03/09/18 07:30 04/08/18 07:29 Acetaminophen (Tylenol) 650 mg Q6H PRN ORAL T>100.5 03/09/18 06:45 04/08/18 06:44 03/10/18 21:48 Bisacodyl (Dulcolax) 10 mg HSPRN PRN RECTAL Constipation 03/09/18 06:45 04/08/18 06:44 Dextrose 1,000 ml @ 125 mls/hr Q8H IV 03/11/18 14:45 04/10/18 14:44 03/14/18 15:02 Dextrose (Dextrose 50%) 25 ml STAT PRN IV Hypoglycemia 03/09/18 08:00 04/08/18 07:59 Dextrose (Dextrose 50%) 50 ml STAT PRN IV Hypoglycemia 03/09/18 08:00 04/08/18 07:59 Docusate Sodium (Colace) 100 mg Q12H PRN GT Constipation 03/09/18 06:45 04/08/18 06:44 Docusate Sodium (Colace) 100 mg Q12HR GT 03/09/18 09:00 04/08/18 08:59 03/14/18 08:47 Folic Acid (Folate) 1 mg DAILY GT 03/09/18 09:00 04/08/18 08:59 03/14/18 08:47 Heparin Sodium (Porcine) (Heparin 5000 units/ml) 5,000 units EVERY 12 HOURS SUBQ 03/09/18 09:00 04/08/18 08:59 03/14/18 08:48 Insulin Aspart (NovoLOG) BEFORE MEALS AND HS SUBQ 03/09/18 11:30 04/08/18 11:29 03/14/18 12:16 Ondansetron HCl (Zofran) 4 mg Q6H PRN IVP Nausea & Vomiting 03/09/18 07:30 04/08/18 07:29 Piperacillin Sod/ Tazobactam Sod 3.375 gm/Dextrose 110 ml @ 27.5 mls/hr EVERY 8 HOURS IVPB 03/09/18 14:00 03/19/18 13:59 03/14/18 15:02 Polyethylene Glycol (Miralax) 17 gm HSPRN PRN ORAL Constipation 03/09/18 21:00 04/08/18 20:59 Quetiapine Fumarate (SEROquel) 12.5 mg EVERY 6 HOURS PRN ORAL For Anxiety 03/12/18 00:15 04/11/18 00:14 Sitagliptin Phosphate (Januvia) 25 mg DAILY GT 03/09/18 09:00 04/08/18 08:59 03/14/18 08:47 Vancomycin HCl (Vanco rx to dose) 1 ea DAILY PRN MISC Per rx protocol 03/09/18 06:45 04/08/18 06:44 Vancomycin HCl 1 gm/Dextrose 275 ml @ 183.708 mls/hr Q24H IVPB 03/12/18 12:00 03/17/18 11:59 03/14/18 12:44 Baylee Mederos M.D. Mar 14, 2018 15:48
--- NOTE | 2018-03-14 16:59 | Internal Med Progress Note ---
Subjective Date of Service: Mar 14, 2018 Physician Name Esteban Yu Attending Physician Jesus Puckett MD Current Medications Medications (Trade) Dose Ordered Sig/Evelio Route PRN Reason Start Time Stop Time Status Last Admin Dose Admin Acetaminophen (Tylenol) 325 mg Q4H PRN ORAL Mild Pain (Pain Scale 1-3) 03/09/18 07:30 04/08/18 07:29 Acetaminophen (Tylenol) 650 mg Q6H PRN ORAL T>100.5 03/09/18 06:45 04/08/18 06:44 03/10/18 21:48 Bisacodyl (Dulcolax) 10 mg HSPRN PRN RECTAL Constipation 03/09/18 06:45 04/08/18 06:44 Dextrose 1,000 ml @ 125 mls/hr Q8H IV 03/11/18 14:45 04/10/18 14:44 03/14/18 15:02 Dextrose (Dextrose 50%) 25 ml STAT PRN IV Hypoglycemia 03/09/18 08:00 04/08/18 07:59 Dextrose (Dextrose 50%) 50 ml STAT PRN IV Hypoglycemia 03/09/18 08:00 04/08/18 07:59 Docusate Sodium (Colace) 100 mg Q12H PRN GT Constipation 03/09/18 06:45 04/08/18 06:44 Docusate Sodium (Colace) 100 mg Q12HR GT 03/09/18 09:00 04/08/18 08:59 03/14/18 08:47 Folic Acid (Folate) 1 mg DAILY GT 03/09/18 09:00 04/08/18 08:59 03/14/18 08:47 Heparin Sodium (Porcine) (Heparin 5000 units/ml) 5,000 units EVERY 12 HOURS SUBQ 03/09/18 09:00 04/08/18 08:59 03/14/18 08:48 Insulin Aspart (NovoLOG) BEFORE MEALS AND HS SUBQ 03/09/18 11:30 04/08/18 11:29 03/14/18 16:50 Ondansetron HCl (Zofran) 4 mg Q6H PRN IVP Nausea & Vomiting 03/09/18 07:30 04/08/18 07:29 Piperacillin Sod/ Tazobactam Sod 3.375 gm/Dextrose 110 ml @ 27.5 mls/hr EVERY 8 HOURS IVPB 03/09/18 14:00 03/19/18 13:59 03/14/18 15:02 Polyethylene Glycol (Miralax) 17 gm HSPRN PRN ORAL Constipation 03/09/18 21:00 04/08/18 20:59 Quetiapine Fumarate (SEROquel) 12.5 mg EVERY 6 HOURS PRN ORAL For Anxiety 03/12/18 00:15 04/11/18 00:14 Sitagliptin Phosphate (Januvia) 25 mg DAILY GT 03/09/18 09:00 04/08/18 08:59 03/14/18 08:47 Vancomycin HCl (Vanco rx to dose) 1 ea DAILY PRN MISC Per rx protocol 03/09/18 06:45 04/08/18 06:44 Vancomycin HCl 1 gm/Dextrose 275 ml @ 183.708 mls/hr Q24H IVPB 03/12/18 12:00 03/17/18 11:59 03/14/18 12:44 Allergies: Coded Allergies: No Known Allergies (Verified , 05/12/08) ROS Limited/Unobtainable: Yes Subjective 87 YO M admitted with fever and shortness of breath. Now sepsis,pneumonia and UTI. Probable osteomyelitis right foot. Cover for Int Med-Dr Puckett. Objective Last Vital Signs Date Time Temp Pulse Resp B/P (MAP) Pulse Ox O2 Delivery O2 Flow Rate FiO2 03/14/18 12:00 97.3 83 20 94/56 98 Nasal Cannula 2.0 97.3 03/14/18 08:05 32 Laboratory Tests Test 03/14/18 11:33 Vancomycin Level Trough 16.7 ug/mL (5.0-12.0) H Microbiology Date/Time Source Procedure Growth Status 03/12/18 17:00 Sputum Induced Gram Stain - Final Resulted 03/12/18 17:00 Sputum Culture - Preliminary Gram Negative Bacillus 1 Gram Negative Bacillus 2 Resulted Intake and Output 03/13/18 03/14/18 19:00 07:00 Intake Total 2157.500 ml 2077.5 ml Output Total 950 ml 900 ml Balance 1207.500 ml 1177.5 ml Free Water 150 ml 150 ml IV Total 1467.500 ml 1387.5 ml Tube Feeding 540 ml 540 ml Output Urine Total 950 ml 900 ml # Bowel Movements 1 4 Objective General Appearance: WD/WN, no apparent distress, alert EENT: PERRL/EOMI, normal ENT inspection Neck: non-tender, normal alignment, supple, normal inspection Cardiovascular: normal peripheral pulses, normal rate, regular rhythm, no gallop/murmur, no JVD Respiratory/Chest: chest wall non-tender, respiratory distress, crackles/rales , rhonchi - bilaterally, expiratory wheezing Abdomen: normal bowel sounds, non tender, soft, no organomegaly, no mass Neurologic: clinical laboratory director II-XII grossly normal Skin: normal pigmentation, warm/dry Assessment/Plan Problem List: (1) Severe sepsis Assessment & Plan: Staph Epi. Continue vanco and zosyn per ID (2) CAD (coronary artery disease) (3) Dysphagia Assessment & Plan: S/P PEG-continue tube feeds (4) Hypercholesteremia (5) PVD (peripheral vascular disease) (6) SOB (shortness of breath) (7) HTN (hypertension) (8) Diabetes mellitus type II, uncontrolled Assessment & Plan: Continue novolog sliding scale and januvia (9) Chronic renal failure (10) UTI (urinary tract infection) Assessment & Plan: Pseudamonas aeruginosa. Continue zosyn per ID (11) Acute encephalopathy (12) Anemia (13) Sacral decubitus ulcer, stage II Assessment & Plan: See surgery note. (14) Pneumonia Assessment & Plan: Gram neg mildred. Continue antibiotic per ID (15) Osteomyelitis of ankle or foot, right, acute Assessment & Plan: Family refused surgery-see surgery note. Status: not improved Esteban Yu MD Mar 14, 2018 16:59
[2018-03-14 17:00] VITALS: BP 100/63
[2018-03-14 20:00] VITALS: BP 94/54
[2018-03-15] VITALS: BP 114/64
[2018-03-15 04:00] VITALS: BP 98/61
[2018-03-15] MEDS: Piperacillin/Tazobactam 3.375 GM in D5W 110 ML IVPB SCH (06:05)
[2018-03-15] MEDS: NovoLOG Insulin Flexpen SUBQ SCH (06:07)
[2018-03-15 08:00] VITALS: BP 101/59
--- NOTE | 2018-03-15 08:53 | Urology Progress Note ---
Assessment/Plan Assessment/Plan 1. Urinary retention. 2. Benign prostatic hypertrophy. 3. Neurogenic bladder. 4. Urinary tract infection and colonization. 5. Hematuria. 6. Proteinuria. new SP tube placed 03/13 (14f) clamped for now mota also indwelling hand irrigated, and do PRN consider removal of mota soon and open SP to gravity drainage abx as ordered cysto later consider renal imaging study Subjective Allergies: Coded Allergies: No Known Allergies (Verified , 05/12/08) Subjective all noted Objective Last 24 Hour Vital Signs Date Time Temp Pulse Resp B/P (MAP) Pulse Ox O2 Delivery O2 Flow Rate FiO2 03/15/18 04:00 98.0 92 20 98/61 97 Nasal Cannula 3.0 98.0 03/15/18 00:00 97.6 98 20 114/64 98 Nasal Cannula 3.0 97.6 03/14/18 20:05 Nasal Cannula 2.0 28 03/14/18 20:05 98 Nasal Cannula 2.0 28 03/14/18 20:05 96 18 Nasal Cannula 3.0 32 03/14/18 20:00 98.3 80 20 94/54 98 Nasal Cannula 3.0 98.3 03/14/18 17:00 97.2 97 20 100/63 98 Nasal Cannula 2.0 97.2 03/14/18 12:00 97.3 83 20 94/56 98 Nasal Cannula 2.0 97.3 Intake and Output 03/14/18 03/15/18 19:00 07:00 Intake Total 45 ml 1675.0 ml Output Total 300 ml 1800 ml Balance -255 ml -125.0 ml Free Water 150 ml IV Total 985.0 ml Tube Feeding 45 ml 540 ml Output Urine Total 300 ml 1800 ml # Bowel Movements 2 Microbiology Date/Time Source Procedure Growth Status 03/10/18 16:25 Blood Blood Culture - Preliminary NO GROWTH AFTER 4 DAYS Resulted 03/12/18 17:00 Sputum Induced Gram Stain - Final Resulted 03/12/18 17:00 Sputum Culture - Preliminary Escherichia Coli - Esbl A.[email or web address] Complx - Mdr Resulted 03/09/18 01:42 Urine,Clean Catch Urine Culture - Final Pseudomonas Aeruginosa Complete 03/09/18 07:00 Foot Right Gram Stain - Final Complete 03/09/18 07:00 Wound Culture - Final Staphylococcus Aureus - Mrsa Usual Skin Sharmaine Complete Current Medications Medications (Trade) Dose Ordered Sig/Evelio Route PRN Reason Start Time Stop Time Status Last Admin Dose Admin Acetaminophen (Tylenol) 325 mg Q4H PRN ORAL Mild Pain (Pain Scale 1-3) 03/09/18 07:30 04/08/18 07:29 Acetaminophen (Tylenol) 650 mg Q6H PRN ORAL T>100.5 03/09/18 06:45 04/08/18 06:44 03/10/18 21:48 Bisacodyl (Dulcolax) 10 mg HSPRN PRN RECTAL Constipation 03/09/18 06:45 04/08/18 06:44 Dextrose 1,000 ml @ 125 mls/hr Q8H IV 03/11/18 14:45 04/10/18 14:44 03/15/18 06:05 Dextrose (Dextrose 50%) 25 ml STAT PRN IV Hypoglycemia 03/09/18 08:00 04/08/18 07:59 Dextrose (Dextrose 50%) 50 ml STAT PRN IV Hypoglycemia 03/09/18 08:00 04/08/18 07:59 Docusate Sodium (Colace) 100 mg Q12H PRN GT Constipation 03/09/18 06:45 04/08/18 06:44 Docusate Sodium (Colace) 100 mg Q12HR GT 03/09/18 09:00 04/08/18 08:59 03/14/18 21:20 Folic Acid (Folate) 1 mg DAILY GT 03/09/18 09:00 04/08/18 08:59 03/14/18 08:47 Heparin Sodium (Porcine) (Heparin 5000 units/ml) 5,000 units EVERY 12 HOURS SUBQ 03/09/18 09:00 04/08/18 08:59 03/14/18 21:20 Insulin Aspart (NovoLOG) BEFORE MEALS AND HS SUBQ 03/09/18 11:30 04/08/18 11:29 03/15/18 06:07 Ondansetron HCl (Zofran) 4 mg Q6H PRN IVP Nausea & Vomiting 03/09/18 07:30 04/08/18 07:29 Piperacillin Sod/ Tazobactam Sod 3.375 gm/Dextrose 110 ml @ 27.5 mls/hr EVERY 8 HOURS IVPB 03/09/18 14:00 03/19/18 13:59 03/15/18 06:05 Polyethylene Glycol (Miralax) 17 gm HSPRN PRN ORAL Constipation 03/09/18 21:00 04/08/18 20:59 Quetiapine Fumarate (SEROquel) 12.5 mg EVERY 6 HOURS PRN ORAL For Anxiety 03/12/18 00:15 04/11/18 00:14 Sitagliptin Phosphate (Januvia) 25 mg DAILY GT 03/09/18 09:00 04/08/18 08:59 03/14/18 08:47 Vancomycin HCl (Vanco rx to dose) 1 ea DAILY PRN MISC Per rx protocol 03/09/18 06:45 04/08/18 06:44 Vancomycin HCl 1 gm/Dextrose 275 ml @ 183.708 mls/hr Q24H IVPB 03/12/18 12:00 03/17/18 11:59 03/14/18 12:44 Laboratory Tests 03/14/18 11:33: Vancomycin Level Trough 16.7H 03/15/18 08:10: White Blood Count [Pending], Red Blood Count [Pending], Hemoglobin [Pending], Hematocrit [Pending], Mean Corpuscular Volume [Pending], Mean Corpuscular Hemoglobin [Pending], Mean Corpuscular Hemoglobin Concent [Pending], Red Cell Distribution Width [Pending], Platelet Count [Pending], Mean Platelet Volume [ Pending], Neutrophils (%) (Auto) [Pending], Lymphocytes (%) (Auto) [Pending], Monocytes (%) (Auto) [Pending], Eosinophils (%) (Auto) [Pending], Basophils (%) (Auto) [Pending], Sodium Level [Pending], Potassium Level [Pending], Chloride Level [Pending], Carbon Dioxide Level [Pending], Blood Urea Nitrogen [Pending], Creatinine [Pending], Estimat Glomerular Filtration Rate [Pending], Glucose Level [Pending], Calcium Level [Pending], Phosphorus Level [Pending], Magnesium Level [Pending], Total Bilirubin [Pending], Aspartate Amino Transf (AST/SGOT) [ Pending], Alanine Aminotransferase (ALT/SGPT) [Pending], Alkaline Phosphatase [ Pending], Total Protein [Pending], Albumin [Pending], Globulin [Pending] Height (Feet): 5 Height (Inches): 8.00 Weight (Pounds): 151 Objective exam stable, urine is grossly yellow with some debris TIFFANY SANTIAGO Mar 15, 2018 08:53
[2018-03-15 08:54] LABS: BASOPHILS % (AUTO) 0.5 % (0.0-2.0); EOSINOPHILS % (AUTO) 1.5 % (0.0-3.0); HEMATOCRIT 28.5 % (42.0-52.0); HEMOGLOBIN 9.4 G/DL (14.2-18.0); LYMPHOCYTES % (AUTO) 15.1 % (20.0-45.0); MEAN CORPUSCULAR VOLUME 89 FL (80-99); MONOCYTES % (AUTO) 4.7 % (1.0-10.0); NEUTROPHILS % (AUTO) 78.2 % (45.0-75.0); PLATELET COUNT 390 K/UL (150-450); RED BLOOD COUNT 3.22 M/UL (4.70-6.10); RED CELL DISTRIBUTION WIDTH 15.1 % (11.6-14.8); WHITE BLOOD COUNT 10.8 K/UL (4.8-10.8)
[2018-03-15] MEDS: Docusate 100mg/10ml Liq GT SCH (09:03)
[2018-03-15] MEDS: sitaGLIPtin 25mg tab GT SCH (09:03)
[2018-03-15] MEDS: Heparin 5000 units/ml inj SUBQ SCH (09:04)
--- NOTE | 2018-03-15 09:15 | Infectious Diseases Prog Note ---
Assessment/Plan Assessment/Plan Assessment: SEpsis, resolved- likely 2ry to PNA, possible PsA UTI, bacteremia (likely contaminant) -CXR /: Improved bilateral perihilar infiltrates, over 2 days -CXR /: Unchanged bilateral perihilar infiltrates and left perihilar atelectasis, over 3 days -CXR: Bibasilar atelectasis versus developing infiltrate. -u/a wbc 20-30, nit neg, leuk +3; ucx >100K PsA (nixon S); s/p Rx -/ Bcx 2/ Staph epi; 03/10 Bcx NTD -sp cx ESBL E.coli (R Zosyn, S Erta, bactrim); MDR ABC ( S Bactrim) -influenza sc neg Fever/Leukocytosis, improving Sacral decubitus ulcer- no signs of infection -sacral wound cx: MDR ABC, MRSA, E.fecailis, ESBL E.coli (Colonizers) B/l foot pressure ulcer- no signs of acute infection infection- possible OM per bone scan -bone scan: Abnormal flow, blood pool, and static activity in the region of the right calcaneal tuberosity, distal fibula and first metatarsal joint. Combination of findings is suspicious for acute osteomyelitis of both these locations. Increased activity in the lateral mid and forefoot on the right, with only equivocal blood pool abnormality. This could represent osteomyelitis, but could also represent posttraumatic or degenerative changes. 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 Will continue to follow along with you. Discussed with RN. Subjective Allergies: Coded Allergies: No Known Allergies (Verified , 8/5/08) Subjective afebrile lekocytosis resolved repeat bcx NTD at 3l NC sp cx ESBL E.coli and MDR ABC Objective Vital Signs Last 24 Hour Vital Signs Date Time Temp Pulse Resp B/P (MAP) Pulse Ox O2 Delivery O2 Flow Rate FiO2 03/15/18 04:00 98.0 92 20 98/61 97 Nasal Cannula 3.0 98.0 03/15/18 00:00 97.6 98 20 114/64 98 Nasal Cannula 3.0 97.6 03/14/18 20:05 Nasal Cannula 2.0 28 03/14/18 20:05 98 Nasal Cannula 2.0 28 03/14/18 20:05 96 18 Nasal Cannula 3.0 32 03/14/18 20:00 98.3 80 20 94/54 98 Nasal Cannula 3.0 98.3 03/14/18 17:00 97.2 97 20 100/63 98 Nasal Cannula 2.0 97.2 03/14/18 12:00 97.3 83 20 94/56 98 Nasal Cannula 2.0 97.3 Height (Feet): 5 Height (Inches): 8.00 Weight (Pounds): 151 Objective General Appearance: moderate distress, lethargic, Stupor Head: normocephalic, atraumatic Eyes: bilateral eye PERRL, bilateral eye EOMI ENT: dry mucus membranes - very dry Neck: full range of motion, supple, no meningismus Respiratory: chest non-tender, respiratory distress, decreased breath sounds, accessory muscle use, rhonchi, wheezing Cardiovascular #1: regular rate, rhythm, no murmur, tachycardia Gastrointestinal: normal bowel sounds, non tender, no mass, no organomegaly, no bruit, non-distended Musculoskeletal: back normal, other - contracted. Ulcer to heels and sacrum Neurologic: grossly normal Skin: warm/dry Microbiology Date/Time Source Procedure Growth Status 03/12/18 17:00 Sputum Induced Gram Stain - Final Resulted 03/12/18 17:00 Sputum Culture - Preliminary Escherichia Coli - Esbl A.baumanii Complx - Mdr Resulted Laboratory Tests Test 03/14/18 11:33 03/15/18 08:10 Vancomycin Level Trough 16.7 ug/mL (5.0-12.0) H White Blood Count 10.8 K/UL (4.8-10.8) Red Blood Count 3.22 M/UL (4.70-6.10) L Hemoglobin 9.4 G/DL (14.2-18.0) L Hematocrit 28.5 % (42.0-52.0) L Mean Corpuscular Volume 89 FL (80-99) Mean Corpuscular Hemoglobin 29.2 PG (27.0-31.0) Mean Corpuscular Hemoglobin Concent 33.0 G/DL (32.0-36.0) Red Cell Distribution Width 15.1 % (11.6-14.8) H Platelet Count 390 K/UL (150-450) Mean Platelet Volume 6.5 FL (6.5-10.1) Neutrophils (%) (Auto) 78.2 % (45.0-75.0) H Lymphocytes (%) (Auto) 15.1 % (20.0-45.0) L Monocytes (%) (Auto) 4.7 % (1.0-10.0) Eosinophils (%) (Auto) 1.5 % (0.0-3.0) Basophils (%) (Auto) 0.5 % (0.0-2.0) Sodium Level Pending Potassium Level Pending Chloride Level Pending Carbon Dioxide Level Pending Blood Urea Nitrogen Pending Creatinine Pending Estimat Glomerular Filtration Rate Pending Glucose Level Pending Calcium Level Pending Phosphorus Level Pending Magnesium Level Pending Total Bilirubin Pending Aspartate Amino Transf (AST/SGOT) Pending Alanine Aminotransferase (ALT/SGPT) Pending Alkaline Phosphatase Pending Total Protein Pending Albumin Pending Globulin Pending Current Medications Medications (Trade) Dose Ordered Sig/Evelio Route PRN Reason Start Time Stop Time Status Last Admin Dose Admin Acetaminophen (Tylenol) 325 mg Q4H PRN ORAL Mild Pain (Pain Scale 1-3) 03/09/18 07:30 04/08/18 07:29 Acetaminophen (Tylenol) 650 mg Q6H PRN ORAL T>100.5 03/09/18 06:45 04/08/18 06:44 03/10/18 21:48 Bisacodyl (Dulcolax) 10 mg HSPRN PRN RECTAL Constipation 03/09/18 06:45 04/08/18 06:44 Dextrose 1,000 ml @ 125 mls/hr Q8H IV 03/11/18 14:45 04/10/18 14:44 03/15/18 06:05 Dextrose (Dextrose 50%) 25 ml STAT PRN IV Hypoglycemia 03/09/18 08:00 04/08/18 07:59 Dextrose (Dextrose 50%) 50 ml STAT PRN IV Hypoglycemia 03/09/18 08:00 04/08/18 07:59 Docusate Sodium (Colace) 100 mg Q12H PRN GT Constipation 03/09/18 06:45 04/08/18 06:44 Docusate Sodium (Colace) 100 mg Q12HR GT 03/09/18 09:00 04/08/18 08:59 03/15/18 09:03 Folic Acid (Folate) 1 mg DAILY GT 03/09/18 09:00 04/08/18 08:59 03/15/18 09:03 Heparin Sodium (Porcine) (Heparin 5000 units/ml) 5,000 units EVERY 12 HOURS SUBQ 03/09/18 09:00 04/08/18 08:59 03/15/18 09:04 Insulin Aspart (NovoLOG) BEFORE MEALS AND HS SUBQ 03/09/18 11:30 04/08/18 11:29 03/15/18 06:07 Ondansetron HCl (Zofran) 4 mg Q6H PRN IVP Nausea & Vomiting 03/09/18 07:30 04/08/18 07:29 Piperacillin Sod/ Tazobactam Sod 3.375 gm/Dextrose 110 ml @ 27.5 mls/hr EVERY 8 HOURS IVPB 03/09/18 14:00 03/19/18 13:59 03/15/18 06:05 Polyethylene Glycol (Miralax) 17 gm HSPRN PRN ORAL Constipation 03/09/18 21:00 04/08/18 20:59 Quetiapine Fumarate (SEROquel) 12.5 mg EVERY 6 HOURS PRN ORAL For Anxiety 03/12/18 00:15 04/11/18 00:14 Sitagliptin Phosphate (Januvia) 25 mg DAILY GT 03/09/18 09:00 04/08/18 08:59 03/15/18 09:03 Vancomycin HCl (Vanco rx to dose) 1 ea DAILY PRN MISC Per rx protocol 03/09/18 06:45 04/08/18 06:44 Vancomycin HCl 1 gm/Dextrose 275 ml @ 183.708 mls/hr Q24H IVPB 03/12/18 12:00 03/17/18 11:59 03/14/18 12:44 Baylee Mederos M.D. Mar 15, 2018 09:15
[2018-03-15 09:25] LABS: ALANINE AMINOTRANSFERASE 23 U/L (12-78); ALBUMIN 1.9 G/DL (3.4-5.0); ALBUMIN/GLOBULIN RATIO 0.3 (1.0-2.7); ALKALINE PHOSPHATASE 78 U/L (46-116); ANION GAP 10 mmol/L (5-15); ASPARTATE AMINO TRANSFERASE 14 U/L (15-37); BILIRUBIN,TOTAL 0.3 MG/DL (0.2-1.0); BLOOD UREA NITROGEN 26 mg/dL (7-18); CALCIUM 8.9 MG/DL (8.5-10.1); CARBON DIOXIDE 24 MMOL/L (21-32); CHLORIDE 103 MMOL/L (98-107); CREATININE 1.2 MG/DL (0.55-1.30); PHOSPHORUS 2.6 MG/DL (2.5-4.9); SODIUM 137 MMOL/L (136-145)
[2018-03-15] MEDS ORDERED: NS 275ml ONE (09:37)
[2018-03-15] MEDS ORDERED: Bactrim-DS 1 tab ORAL SCH (09:43)
[2018-03-15] MEDS ORDERED: Colistin for inhalation INH SCH (10:00)
[2018-03-15] MEDS ORDERED: Ertapenem 1 GM in NS 55 ML IVPB SCH (11:00)
--- NOTE | 2018-03-15 11:32 | General Progress Note ---
Assessment/Plan Assessment/Plan encephalopathy seroquel prn d/w family Subjective Date patient seen: Mar 15, 2018 Neurologic/Psychiatric: Reports: anxiety, depressed, emotional problems Allergies: Coded Allergies: No Known Allergies (Verified , 05/12/08) Subjective the pt is calm confused Objective Last 24 Hour Vital Signs Date Time Temp Pulse Resp B/P (MAP) Pulse Ox O2 Delivery O2 Flow Rate FiO2 03/15/18 08:07 Nasal Cannula 2.0 28 03/15/18 08:07 92 18 Nasal Cannula 3.0 32 03/15/18 08:07 98 Nasal Cannula 2.0 28 03/15/18 08:00 98.2 90 24 101/59 98 Nasal Cannula 3.0 98.2 03/15/18 04:00 98.0 92 20 98/61 97 Nasal Cannula 3.0 98.0 03/15/18 00:00 97.6 98 20 114/64 98 Nasal Cannula 3.0 97.6 03/14/18 20:05 Nasal Cannula 2.0 28 03/14/18 20:05 98 Nasal Cannula 2.0 28 03/14/18 20:05 96 18 Nasal Cannula 3.0 32 03/14/18 20:00 98.3 80 20 94/54 98 Nasal Cannula 3.0 98.3 03/14/18 17:00 97.2 97 20 100/63 98 Nasal Cannula 2.0 97.2 03/14/18 12:00 97.3 83 20 94/56 98 Nasal Cannula 2.0 97.3 Intake and Output 03/14/18 03/15/18 19:00 07:00 Intake Total 45 ml 1675.0 ml Output Total 300 ml 1800 ml Balance -255 ml -125.0 ml Free Water 150 ml IV Total 985.0 ml Tube Feeding 45 ml 540 ml Output Urine Total 300 ml 1800 ml # Bowel Movements 2 Laboratory Tests 03/14/18 11:33: Vancomycin Level Trough 16.7H 03/15/18 08:10: White Blood Count 10.8, Red Blood Count 3.22L, Hemoglobin 9.4L, Hematocrit 28.5L , Mean Corpuscular Volume 89, Mean Corpuscular Hemoglobin 29.2, Mean Corpuscular Hemoglobin Concent 33.0, Red Cell Distribution Width 15.1H, Platelet Count 390, Mean Platelet Volume 6.5, Neutrophils (%) (Auto) 78.2H, Lymphocytes (%) (Auto) 15.1L, Monocytes (%) (Auto) 4.7, Eosinophils (%) (Auto) 1.5, Basophils (%) (Auto) 0.5, Sodium Level 137, Potassium Level 4.0, Chloride Level 103, Carbon Dioxide Level 24, Anion Gap 10, Blood Urea Nitrogen 26H, Creatinine 1.2, Estimat Glomerular Filtration Rate , Glucose Level 315H, Calcium Level 8.9, Phosphorus Level 2.6, Magnesium Level 2.2, Total Bilirubin 0.3, Aspartate Amino Transf (AST/SGOT) 14L, Alanine Aminotransferase (ALT/SGPT) 23, Alkaline Phosphatase 78, Total Protein 7.8, Albumin 1.9L, Globulin 5.9, Albumin/Globulin Ratio 0.3L Height (Feet): 5 Height (Inches): 8.00 Weight (Pounds): 151 General Appearance: no apparent distress, alert, confused Mamie Oliveira M.D. Mar 15, 2018 11:32
[2018-03-15] MEDS ORDERED: COLISTIN150 MG HHN (11:40)
[2018-03-15] MEDS ORDERED: VANCOCIN250 MG IV BOLUS (11:40)
[2018-03-15] MEDS ORDERED: MERREM1 GM IV (11:40)
[2018-03-15] MEDS ORDERED: BACTRIM DOUBLE S1 E1 ORAL (11:40)
--- NOTE | 2018-03-15 11:41 | Pulmonology Progress Note ---
Assessment/Plan Problems: (1) Healthcare associated bacterial pneumonia (2) Osteomyelitis of ankle or foot, right, acute (3) Acute encephalopathy (4) Severe sepsis (5) Feeding by G-tube (6) Hyperglycemia due to type 2 diabetes mellitus (7) Protein-calorie malnutrition, severe (8) Limited mobility in bed (9) History of CVA (cerebrovascular accident) Assessment/Plan check electrolytes iv abx check cultures, urine has GNR tolerating feeding Gtube site care DNR is appropriate dvt prophylaxis bone scan calcaneal tuberosity, distal fibula and first metatarsal joint suspicious for acute osteomyelitis of both these locations pt needs Vancomycin for total of 42 days to treat the osteomyelitis. Subjective ROS Limited/Unobtainable: Yes Allergies: Coded Allergies: No Known Allergies (Verified , 05/12/08) Objective Last 24 Hour Vital Signs Date Time Temp Pulse Resp B/P (MAP) Pulse Ox O2 Delivery O2 Flow Rate FiO2 03/15/18 08:07 Nasal Cannula 2.0 28 03/15/18 08:07 92 18 Nasal Cannula 3.0 32 03/15/18 08:07 98 Nasal Cannula 2.0 28 03/15/18 08:00 98.2 90 24 101/59 98 Nasal Cannula 3.0 98.2 03/15/18 04:00 98.0 92 20 98/61 97 Nasal Cannula 3.0 98.0 03/15/18 00:00 97.6 98 20 114/64 98 Nasal Cannula 3.0 97.6 03/14/18 20:05 Nasal Cannula 2.0 28 03/14/18 20:05 98 Nasal Cannula 2.0 28 03/14/18 20:05 96 18 Nasal Cannula 3.0 32 03/14/18 20:00 98.3 80 20 94/54 98 Nasal Cannula 3.0 98.3 03/14/18 17:00 97.2 97 20 100/63 98 Nasal Cannula 2.0 97.2 03/14/18 12:00 97.3 83 20 94/56 98 Nasal Cannula 2.0 97.3 Intake and Output 03/14/18 03/15/18 19:00 07:00 Intake Total 45 ml 1675.0 ml Output Total 300 ml 1800 ml Balance -255 ml -125.0 ml Free Water 150 ml IV Total 985.0 ml Tube Feeding 45 ml 540 ml Output Urine Total 300 ml 1800 ml # Bowel Movements 2 General Appearance: cachetic HEENT: normocephalic, anicteric Respiratory/Chest: chest wall non-tender, lungs clear Cardiovascular: normal peripheral pulses, normal rate Abdomen: normal bowel sounds, soft, non tender Extremities: no cyanosis Skin: no lesions Microbiology Date/Time Source Procedure Growth Status 03/12/18 17:00 Sputum Induced Gram Stain - Final Resulted 03/12/18 17:00 Sputum Culture - Preliminary Escherichia Coli - Esbl A.baumanii Complx - Mdr Resulted Laboratory Tests 03/15/18 08:10: White Blood Count 10.8, Red Blood Count 3.22L, Hemoglobin 9.4L, Hematocrit 28.5L , Mean Corpuscular Volume 89, Mean Corpuscular Hemoglobin 29.2, Mean Corpuscular Hemoglobin Concent 33.0, Red Cell Distribution Width 15.1H, Platelet Count 390, Mean Platelet Volume 6.5, Neutrophils (%) (Auto) 78.2H, Lymphocytes (%) (Auto) 15.1L, Monocytes (%) (Auto) 4.7, Eosinophils (%) (Auto) 1.5, Basophils (%) (Auto) 0.5, Sodium Level 137, Potassium Level 4.0, Chloride Level 103, Carbon Dioxide Level 24, Anion Gap 10, Blood Urea Nitrogen 26H, Creatinine 1.2, Estimat Glomerular Filtration Rate , Glucose Level 315H, Calcium Level 8.9, Phosphorus Level 2.6, Magnesium Level 2.2, Total Bilirubin 0.3, Aspartate Amino Transf (AST/SGOT) 14L, Alanine Aminotransferase (ALT/SGPT) 23, Alkaline Phosphatase 78, Total Protein 7.8, Albumin 1.9L, Globulin 5.9, Albumin/Globulin Ratio 0.3L Current Medications Medications (Trade) Dose Ordered Sig/Evelio Route PRN Reason Start Time Stop Time Status Last Admin Dose Admin Acetaminophen (Tylenol) 325 mg Q4H PRN ORAL Mild Pain (Pain Scale 1-3) 03/09/18 07:30 04/08/18 07:29 Acetaminophen (Tylenol) 650 mg Q6H PRN ORAL T>100.5 03/09/18 06:45 04/08/18 06:44 03/10/18 21:48 Bisacodyl (Dulcolax) 10 mg HSPRN PRN RECTAL Constipation 03/09/18 06:45 04/08/18 06:44 Colistimethate Sodium (Colistin *inhalation use only*) 150 mg Q12HR@10,22 INH 03/15/18 10:00 03/21/18 23:59 Dextrose 1,000 ml @ 125 mls/hr Q8H IV 03/11/18 14:45 04/10/18 14:44 03/15/18 06:05 Dextrose (Dextrose 50%) 25 ml STAT PRN IV Hypoglycemia 03/09/18 08:00 04/08/18 07:59 Dextrose (Dextrose 50%) 50 ml STAT PRN IV Hypoglycemia 03/09/18 08:00 04/08/18 07:59 Docusate Sodium (Colace) 100 mg Q12H PRN GT Constipation 03/09/18 06:45 04/08/18 06:44 Docusate Sodium (Colace) 100 mg Q12HR GT 03/09/18 09:00 04/08/18 08:59 03/15/18 09:03 Ertapenem 1 gm/ Sodium Chloride 55 ml @ 110 mls/hr Q24H IVPB 03/15/18 11:00 03/19/18 23:59 03/15/18 10:43 Folic Acid (Folate) 1 mg DAILY GT 03/09/18 09:00 04/08/18 08:59 03/15/18 09:03 Heparin Sodium (Porcine) (Heparin 5000 units/ml) 5,000 units EVERY 12 HOURS SUBQ 03/09/18 09:00 04/08/18 08:59 03/15/18 09:04 Insulin Aspart (NovoLOG) Q6HR SUBQ 03/15/18 12:00 04/08/18 11:29 Ondansetron HCl (Zofran) 4 mg Q6H PRN IVP Nausea & Vomiting 03/09/18 07:30 04/08/18 07:29 Polyethylene Glycol (Miralax) 17 gm HSPRN PRN ORAL Constipation 03/09/18 21:00 04/08/18 20:59 Quetiapine Fumarate (SEROquel) 12.5 mg EVERY 6 HOURS PRN ORAL For Anxiety 03/12/18 00:15 04/11/18 00:14 Sitagliptin Phosphate (Januvia) 25 mg DAILY GT 03/09/18 09:00 04/08/18 08:59 03/15/18 09:03 Trimethoprim/ Sulfamethoxazole (Bactrim-DS) 1 tab Q12HR ORAL 03/15/18 09:43 03/22/18 23:59 03/15/18 10:43 Vancomycin HCl (Vanco rx to dose) 1 ea DAILY PRN MISC Per rx protocol 03/09/18 06:45 04/08/18 06:44 Vancomycin HCl 1 gm/Dextrose 275 ml @ 183.708 mls/hr Q24H IVPB 03/12/18 12:00 03/17/18 11:59 03/14/18 12:44 Neil Goldstein MD Mar 15, 2018 11:41
[2018-03-15 11:58] VITALS: BP 124/66
[2018-03-15] MEDS ORDERED: NovoLOG Insulin Flexpen SUBQ SCH (12:00)
[2018-03-15] MEDS: Vancomycin 1gm/D5W 275ml IVPB SCH ×2 (12:14)
[2018-03-15] MEDS ORDERED: D5W 110ml ONE (14:59)
--- NOTE | 2018-03-15 15:42 | Internal Med Progress Note ---
Subjective Physician Name Jesus Puckett Attending Physician Jesus Puckett MD Allergies: Coded Allergies: No Known Allergies (Verified , 05/12/08) Subjective responsive, NAD Objective Last Vital Signs Date Time Temp Pulse Resp B/P (MAP) Pulse Ox O2 Delivery O2 Flow Rate FiO2 03/15/18 11:58 98.0 92 23 124/66 96 Nasal Cannula 3.0 98.0 03/15/18 08:07 28 Laboratory Tests Test 03/15/18 08:10 White Blood Count 10.8 K/UL (4.8-10.8) Red Blood Count 3.22 M/UL (4.70-6.10) L Hemoglobin 9.4 G/DL (14.2-18.0) L Hematocrit 28.5 % (42.0-52.0) L Mean Corpuscular Volume 89 FL (80-99) Mean Corpuscular Hemoglobin 29.2 PG (27.0-31.0) Mean Corpuscular Hemoglobin Concent 33.0 G/DL (32.0-36.0) Red Cell Distribution Width 15.1 % (11.6-14.8) H Platelet Count 390 K/UL (150-450) Mean Platelet Volume 6.5 FL (6.5-10.1) Neutrophils (%) (Auto) 78.2 % (45.0-75.0) H Lymphocytes (%) (Auto) 15.1 % (20.0-45.0) L Monocytes (%) (Auto) 4.7 % (1.0-10.0) Eosinophils (%) (Auto) 1.5 % (0.0-3.0) Basophils (%) (Auto) 0.5 % (0.0-2.0) Sodium Level 137 MMOL/L (136-145) Potassium Level 4.0 MMOL/L (3.5-5.1) Chloride Level 103 MMOL/L (98-107) Carbon Dioxide Level 24 MMOL/L (21-32) Anion Gap 10 mmol/L (5-15) Blood Urea Nitrogen 26 mg/dL (7-18) H Creatinine 1.2 MG/DL (0.55-1.30) Estimat Glomerular Filtration Rate mL/min (>60) Glucose Level 315 MG/DL (74-106) H Calcium Level 8.9 MG/DL (8.5-10.1) Phosphorus Level 2.6 MG/DL (2.5-4.9) Magnesium Level 2.2 MG/DL (1.8-2.4) Total Bilirubin 0.3 MG/DL (0.2-1.0) Aspartate Amino Transf (AST/SGOT) 14 U/L (15-37) L Alanine Aminotransferase (ALT/SGPT) 23 U/L (12-78) Alkaline Phosphatase 78 U/L (46-116) Total Protein 7.8 G/DL (6.4-8.2) Albumin 1.9 G/DL (3.4-5.0) L Globulin 5.9 g/dL Albumin/Globulin Ratio 0.3 (1.0-2.7) L Microbiology Date/Time Source Procedure Growth Status 03/12/18 17:00 Sputum Induced Gram Stain - Final Resulted 03/12/18 17:00 Sputum Culture - Preliminary Escherichia Coli - Esbl A.baumanii Complx - Mdr Resulted Intake and Output 03/14/18 03/15/18 19:00 07:00 Intake Total 45 ml 1675.0 ml Output Total 300 ml 1800 ml Balance -255 ml -125.0 ml Free Water 150 ml IV Total 985.0 ml Tube Feeding 45 ml 540 ml Output Urine Total 300 ml 1800 ml # Bowel Movements 2 Objective General Appearance: lethargic, Head: normocephalic, atraumatic Eyes: bilateral eye PERRL, bilateral eye EOMI ENT: dry mucus membranes - very dry Neck: full range of motion, supple, no meningismus Respiratory: chest non-tender, respiratory distress, decreased breath sounds, No wheezing Cardiovascular #1: regular rate, rhythm, no murmur, Gastrointestinal: normal bowel sounds, non tender, non-distended Musculoskeletal: back normal, other - contracted. Ulcer to heels and sacrum Neurologic: moves slowly Assessment/Plan Assessment/Plan 1) Severe sepsis Assessment & Plan: Staph Epi. Continue vanco and zosyn per ID (2) CAD (coronary artery disease) (3) Dysphagia Assessment & Plan: S/P PEG-continue tube feeds (4) Hypercholesteremia (5) PVD (peripheral vascular disease) (6) SOB (shortness of breath) (7) HTN (hypertension) (8) Diabetes mellitus type II, uncontrolled Assessment & Plan: Continue novolog sliding scale and januvia (9) Chronic renal failure (10) UTI (urinary tract infection) Assessment & Plan: Pseudamonas aeruginosa. Continue zosyn per ID (11) Acute encephalopathy (12) Anemia (13) Sacral decubitus ulcer, stage II Assessment & Plan: See surgery note. (14) Pneumonia Assessment & Plan: Gram neg mildred. Continue antibiotic per ID (15) Osteomyelitis of ankle or foot, right, acute Assessment & Plan: Family refused surgery-see surgery note. DC to SNF today on IV Vanco X 42 days Jesus Puckett MD Mar 15, 2018 15:42
--- NOTE | 2018-03-18 09:28 | Discharge Summary ---
Discharge Summary Discharge Summary _ DATE OF ADMISSION: 03/09/2018 DATE OF DISCHARGE: 2017 REASON FOR ADMISSION: 87 years old male with past medical history significant for dysphagia, G-tube , COPD ,diabetes type 2 ,hypertension ,atherosclerotic heart disease , peripheral vascular disease ,hyperlipidemia, chronic kidney disease, with a DO NOT RESUSCITATE DO NOT INTUBATE status, was sent to emergency department for evaluation of altered mental status and fever. In emergency department patient was febrile 102.4, tachycardic 128 , tachypneic 41, blood pressure was low around 90/60. Patient required supplemental oxygen to keep pulse oximetry above 92%. EKG revealed sinus tachycardia, no acute ischemic changes. Troponin negative. Chest x-ray revealed bilateral lower lobe infiltrates . Urinalysis with evidence of UTI. WBC 20.0. Hemoglobin 11.6, hematocrit 37.7 glucose 579.Anion ga within normal limits- 13, CO2 -22. BUN 70 creatinine 1.9. . Patient admitted with diagnosis of severe sepsis, healthcare associated pneumonia, urinary tract infection, toxic metabolic encephalopathy, dehydration , acute renal failure, hyperglycemia due to diabetes mellitus, sacral decub stage II, present on admission. CONSULTANTS: pulmonary Dr. Goldstein ID specialist Dr. Dang Urologist Dr. Vigil It Risk Advisor dr. Bhatia Psychiatrist surgeon Dr. Nicholson [facility] COURSE: Patient admitted. Sepsis workup initiated. Patient started on antibiotic as per ID direction. Upon presentation patient had multiply bilateral lower extremity ulcers in the presence of diabetes mellitus. It Risk Advisor seen and evaluated the patient. Per platform engineer patient had a non-pressure ulcer of the right lateral ankle to muscle , non-pressure ulcer of right heel and non-pressure ulcer of the right lateral foot to bone. Patient also exhibited rigid contracture of right knee. According to platform engineer, limb salvage prognosis was poor due to patient comorbidities, including peripheral arterial disease, knee contraction , diabetes and numerous wounds on the right lower extremity. It Risk Advisor recommended to consider amputation. Patient was off loaded with heel protectors and floating heels. Venous duplex bilateral lower extremity was negative. Bone scan was done to evaluate for osteomyelitis due to increased inflammatory markers and exposed bone. Bone scale revealed evidence suspicious for acute osteomyelitis of right calcaneal tuberosity, distal fibula and first metatarsal joint. Sputum culture revealed Escherichia coli ESBL and Acinetobacter MDR complex . Urine culture revealed Pseudomonas. Blood culture initially showed Staphylococcus epidermidis, repeated blood culture were negative. Sacral wound culture with colonizers -as per ID specialist. Infectious disease specialist also stated, that bacteremia was likely contaminant. Patient will need total of 42 days of antibiotic treatment for osteomyelitis. Antibiotic regimen to be continued at the intermediate facility as per ID recommendations as outlined in medication reconciliation list. Conservative management with IV antibiotics will be attempted first. Follow-up chest x-ray showed improvement in bilateral infiltrates. Supplemental oxygen and pulmonary toilet provided as needed. Blood pressure was managed with STACY inhibitor and beta kishore and remained stable. Blood sugar was managed with Januvia and a sliding scale of insulin. Blood sugar will need further optimization at the intermediate facility . Elevated blood sugar was likely secondary to severe sepsis. Patient was hydrated, renal parameters and electrolytes were closely monitor eed, electrolytes were corrected as needed , nephrotoxins were avoided. Prior to discharge, BUN down to 26 and creatinine 1.2. Acute kidney injury resolved, likely was due to dehydration and severe sepsis. Strict aspiration precautions were maintained . G-tube feeding was initiated. Communications Engineering Technician recommendations implemented in plan of care. Patient was able to tolerate tube feeding . G-tube site care provided. Surgeon evaluated the patient for sacral decubitus stage II , present on admission. According to surgeon, pressure ulcer appeared to be clear, without signs of infection. Surgeon recommended keep patient off the wound . turn every 2 hours, continue air mattress and foam dressing with a skin protectant . No surgical intervention was necessary at this time. Wound care provided as per on surgeon recommendation. Pain management was addressed, and pain was on controlled. Nutritional recommendation implemented in plan of care. Urologist closely followed. Patient with a history of urinary retention secondary to BPH and had a suprapubic catheter changed on 03/13 with [place] gauge #14. Urologist recommended cystoscopy as outpatient and consider removing Duffy catheter and start drainage via suprapubic catheter, which at that time was clamped. Patient to follow-up with the urologist as outpatient Hemoglobin and hematocrit were closely monitored with goal to keep hemoglobin above 7. Hemoglobin and hematocrit on baseline ,no need for transfusion. Supportive care provided. Bowel regimen instituted Patient stabilized and was ready for discharge back to intermediate facility for continuation of care FINAL DIAGNOSES: Severe sepsis Healthcare associated pneumonia with Escherichia coli ESBL and Acinetobacter MDR Osteomyelitis right ankle/food Probable UTI with Pseudomonas bacteriuria Acute toxic metabolic encephalopathy ( due to severe sepsis) Hyperglycemia due to diabetes mellitus Acute kidney injury, resolved Dehydration Non pressure ulcers right ankle, right heel, right lateral foot Peripheral arterial disease Anemia History of CVA CAD HTN Urinary retention Neurogenic bladder BPH Status post suprapubic catheter placement Sacral decubitus stage II, present on admission Dysphagia G-tube Severe protein calorie malnutrition DISCHARGE MEDICATIONS: See Medication Reconciliation list. Complete antibiotic as specified in medication reconciliation list DISCHARGE INSTRUCTIONS: Patient was discharged to intermediate facility. Follow up with medical doctor at the facility I have been assigned to dictate discharge summary for this account. I was not involved in the patient's management. Ifeoma Almanza NP Mar 18, 2018 09:28
== END 2018-03-15 15:00 | DRG 720 ==
LOC: EDBD 01:34 → EDBEDREQ 01:46 → EMR 01:52 → 4E 01:58 → EDBEDREQ 02:14 → 4E 05:44
DX: A41.9 Sepsis, unspecified organism (principal); E43 Unspecified severe protein-calorie malnutrition; J15.5 Pneumonia due to Escherichia coli; N17.9 Acute kidney failure, unspecified; L89.152 Pressure ulcer of sacral region, stage 2; G92 Toxic encephalopathy; J44.0 Chronic obstructive pulmonary disease with (acute) lower respiratory infection; E11.22 Type 2 diabetes mellitus with diabetic chronic kidney disease; R13.10 Dysphagia, unspecified; R65.20 Severe sepsis without septic shock; E11.621 Type 2 diabetes mellitus with foot ulcer; N39.0 Urinary tract infection, site not specified; D64.9 Anemia, unspecified; I10 Essential (primary) hypertension; R09.02 Hypoxemia; I12.9 Hypertensive chronic kidney disease with stage 1 through stage 4 chronic kidney disease, or unspecified chronic kidney disease; E11.65 Type 2 diabetes mellitus with hyperglycemia; N18.9 Chronic kidney disease, unspecified; Z79.4 Long term (current) use of insulin; I25.10 Atherosclerotic heart disease of native coronary artery without angina pectoris; E78.00 Pure hypercholesterolemia, unspecified; I73.9 Peripheral vascular disease, unspecified; L97.419 Non-pressure chronic ulcer of right heel and midfoot with unspecified severity; Z93.1 Gastrostomy status; Z66 Do not resuscitate; E86.0 Dehydration; Z68.23 Body mass index [BMI] 23.0-23.9, adult; M86.171 Other acute osteomyelitis, right ankle and foot; E11.69 Type 2 diabetes mellitus with other specified complication; M24.569 Contracture, unspecified knee; N40.1 Benign prostatic hyperplasia with lower urinary tract symptoms; R33.8 Other retention of urine; N31.9 Neuromuscular dysfunction of bladder, unspecified; R31.9 Hematuria, unspecified; R80.9 Proteinuria, unspecified; Z93.51 Cutaneous-vesicostomy status
CPT/HCPCS: 36415; 71045; 78315; 80048; 80053; 80202; 81003; 82550; 82553; 82962; 83605; 83735; 84100; 84484; 85007; 85025; 85610; 85651; 85730; 86140; 86710; 87040; 87070; 87081; 87086; 87181; 87205; 93005; 93970; 94640; 94664; 94760; J1815